=== PATIENT | male | born 1945 | race Caucasian/White ===

== ENCOUNTER 2024-04-21 10:33 | Outpatient (OUT) | payer MEDICARE, SELFPAY | END 2024-04-21 10:34 | disposition home or self-care (01) | LOC: PST 10:33 | PROVIDERS: PCP Internal Medicine; Visit Provider Surgery | DX: Z01.818 Encounter for other preprocedural examination (principal); Z86.0109 Personal history of other colon polyps; Z12.11 Encounter for screening for malignant neoplasm of colon ==

== ENCOUNTER 2024-04-29 08:35 | Day surgery (SDC) | payer MEDICARE, SELFPAY ==
--- NOTE | 2024-04-29 | OP_ITS ---
OPERATION DATE: 04/29/2024 PREOPERATIVE DIAGNOSIS: Personal history of colon polyps. POSTOPERATIVE DIAGNOSIS: Severe morin colonic diverticulosis as well as tortuous colon. PROCEDURE: Colonoscopy to cecum. SURGEON: Jasper Rodgers M.D. ANESTHESIA: Monitored anesthesia care. ESTIMATED BLOOD LOSS: Zero. PREP: Fair with some solid and liquid stool throughout the colon that was partially irrigated clear. INDICATIONS AND CONSENT: Patient is a 78-year-old male with a personal history of colon polyps. Last colonoscopy was in 2019 with the removal of a small descending colon tubular adenoma. Indications, risks, benefits, alternatives of proceeding with colonoscopy were explained extensively to the patient, including the risks of bleeding, colon perforation or anesthetic complications. All of his questions were answered. Informed consent was obtained. PROCEDURE: Patient brought to the operating room, placed in the left lateral decubitus position. Monitored anesthesia care was provided. Rectal exam was performed which showed no masses or blood. The scope was inserted into the anal canal. Under direct visualization was advanced. With the aid of abdominal compression, it was advanced. Actually, the scope had to be changed to a pediatric scope due to the tortuosity of the colon and severe diverticulosis. The scope was able to be advanced to the cecum. There was a large amount of liquid that was partially irrigated. So the majority of the cecal bulb was reviewed, but some was not available due to fluid. Upon withdrawal of the scope, mucosal surfaces were carefully examined. There were no mass lesions or polyps. There was severe diverticulosis throughout the entire colon, without inflammatory changes or scarring. The scope was retroflexed in the anal canal. There was no significant hemorrhoidal disease. The scope was then withdrawn. Patient tolerated procedure well, was sent to recovery room in good condition. patient will likely not require additional screening colonoscopy; however it could be done in 10 years if patient remains in good johan. CC: Pavan Dee M.D. [place]
--- OUTSIDE RECORDS SUMMARY | 2024-04-29 08:45 | XMS_ITS | CCD ---
Author Organization [facility] Providers Care Feed In Worker Name Role Phone PHYSICIAN, DEFAULT Unavailable Unavailable PHYSICIAN, DEFAULT Unavailable Unavailable KATHERIN STERLING Primary Care Physician MATSON ., DR PLUNKETT Admitting Unavailable MATSON ., DR PLUNKETT Attending Unavailable HIESTAND, DR KATHERIN Cobos Primary Care Unavailable MATSON ., DR PLUNKETT Consulting Unavailable SIXTO II, HARVEY Consulting Unavailable BARBIE ALONZO Consulting Unavailable MATSON ., DR PLUNKETT Attending Unavailable MATSON ., DR PLUNKETT Consulting Unavailable MATSON ., DR PLUNKETT Admitting Unavailable JEREMIAH AVILA Consulting Unavailable PRASANNA KIRK Consulting Unavailable MATSON ., DR PLUNKETT Attending Unavailable MATSON ., DR PLUNKETT Admitting Unavailable MATSON ., DR PLUNKETT Admitting Unavailable HIESTAND, DR KATHERIN Cobos Primary Care Unavailable MATSON ., DR PLUNKETT Attending Unavailable MATSON ., DR PLUNKETT Consulting Unavailable MATSON ., DR PLUNKETT Admitting Unavailable MATSON ., DR PLUNKETT Attending Unavailable HIESTAND, DR KATHERIN Cobos Primary Care Unavailable MATSON ., DR PLUNKETT Consulting Unavailable MATSON ., DR PLUNKETT Admitting Unavailable MATSON ., DR PLUNKETT Attending Unavailable HIESTMARIANNE, DR KATHERIN Cobos Primary Care Unavailable MATSON ., DR PLUNKETT Consulting Unavailable LENY KHAN Consulting Unavailable MATSON ., DR PLUNKETT Attending Unavailable MATSON ., DR PLUNKETT Consulting Unavailable MATSON ., DR PLUNKETT Admitting Unavailable NefBarbie bustillos Consulting Unavailable MATSON ., DR PLUNKETT Consulting Unavailable MATSON ., DR PLUNKETT Attending Unavailable HIESTMARIANNE, DR KATHERIN Cobos Primary Care Unavailable MATSON ., DR PLUNKETT Admitting Unavailable SHARP, JEREMIAH Consulting Unavailable SIXTO II, HARVEY Consulting Unavailable RUTH ANN LIZAMA Consulting Unavailable Dimitrios Matson MD Unavailable [phone] Katherin Sterling Unavailable [phone] Katherin Sterling Primary Care Provider [phone] Evelyne SILVERIO, Ismael Unavailable [place] BAR ASSISTANT.DEICER KIT ASSEMBLER, Gerda Unavailable Shaina RN, Amanda Unavailable [phone] Katherin Sterling Unavailable Shaina SCHNEIDER, Amanda Unavailable [phone] HALLIE, KATHERIN ZARCO Primary Care Unavailabl e ALMASSI, KANNAN Attending Unavailable ISAIAHASSI, KANNAN Referring Unavailable JOSE RAULESTMARIANNE, KATHERIN ZARCO Primary Care Unavailabl e Katherin Sterling MD Primary Care Provider Katherin Sterling Primary Care Provider [phone] KATHERIN STERLING Attending Unavailable JOSE RAULESTMARIANNE, KATHERIN Cobos Referring Unavailable HIESTMARIANNE, KATHERIN Cobos Primary Care Unavailable DONATO KRISHNAN Attending Unavailable KATHERIN STERLING Referring Unavailable JOSE RAULESTMARIANNE, KATHERIN Cobos Primary Care Unavailable JOSE RAULESTMARIANNE, KATHERIN Cobos Attending Unavailable JOSE RAULESTMARIANNE, KATHERIN Cobos Referring Unavailable HIESTMARIANNE, KATHERIN Cobos Primary Care Unavailable DONATO KRISHNAN Attending Unavailable JOSE RAULESTKATHERIN SU Referring Unavailable HIESTMARIANNE, KATHERIN Cobos Primary Care Unavailable HALLIE, KATHERIN Cobos Referring Unavailable HALLIE, KATHERIN Cobos Primary Care Unavailable HALLIE, KATHERIN Cobos Attending Unavailable HALLIE, KATHERIN Cobos Referring Unavailable HALLIE, KATHERIN Cobos Primary Care Unavailable Dimitrios Matson MD Unavailable Katherin Sterling MD Unavailable [phone] Hallie SILVERIO, Katherin Zarco Primary Care Provider KATHERIN STERLING Primary Care Unavailabl e HIESTAND, KATHERIN ZARCO Primary Care Unavailabl e HIESTAND, KATHERIN ZARCO Primary Care Unavailabl e ALMASSI, KANNAN Referring Unavailable ISAIAHASSI, KANNAN Attending Unavailable HIESTMARIANNE, KATHERIN ZARCO Primary Care Unavailabl e ALMASSI, KANNAN Attending Unavailable HIESTMARIANNE, KATHERIN ZARCO Primary Care Unavailabl e HIESTAND, KATHERIN ZARCO Primary Care Unavailabl e HIESTAND, KATHERIN ZARCO Primary Care Unavailabl e HIESTAND, KATHERIN ZARCO Primary Care Unavailabl e HIESTAND, KATHERIN ZARCO Primary Care Unavailabl e ALMASSI, KANNAN Attending Unavailable NILL, Noel R Attending Unavailable Medications Current Medications Medication Drug Class(es) Dates Sig (Normalized) Sig (Original) acetaminophen 325 mg / HYDROcodone bitartrate 5 mg oral tablet (1 source) Opioid Agonist Start: 04-24-2022 Melvin 325 mg-5 mg oral tablet 1 tab(s), Oral, q12hr, 10 tab(s), Refill(s) 0, [facility] #[id number], 182, cm, 03/28/22 12:11:00 EST, Height/Length Dosing, 85, kg, 03/28/22 12:11:00 EST, Weight Dosing Start Date: 04/24/22 Status: Ordered acetaminophen 325 mg / oxyCODONE hydrochloride 5 mg oral tablet (1 source) Opioid Agonist Start: 09-15-2023 End: 09-22-2023 take 1 tablet by mouth every six hours as needed for pain oxyCODONE-acetamin ophen (PERCOCET) 5-325 mg tablet Indications: Malignant neoplasm of overlapping sites of bladder (HCC) , Cancer associated pain Take 1 tablet by mouth every 6 hours as needed for pain for up to 7 days. 28 tablet 0 09/15/2023 09/22/2023 Active ALPRAZolam 0.5 mg oral tablet (20 sources) Benzodiazepine Start: 03-16-2024 take 1 tablet by mouth once daily in the morning ALPRAZolam (XANAX) 0.5 mg tablet Indications: Anxiety take 1 tablet by mouth every morning and then take 1 tablet every evening if needed for anxiety Strength: 0.5 mg 60 tablet 03/16/2024 Active Start: 01-11-2020 End: 03-14-2024 take 1 tablet by mouth once daily in the morning ALPRAZolam (XANAX) 0.5 mg tablet Indications: Anxiety take 1 tablet by mouth every morning and then take 1 tablet every evening if needed for anxiety Strength: 0.5 mg 60 tablet 0 02/19/2023 03/29/2023 Discontinued (Reorder) Comment on above: take 1 tablet by kiah th every morning then take 1 tablet every evening if needed for anxiety escitalopram 10 mg oral tablet (20 sources) Serotonin Reuptake Inhibitor Start: 3 End: 4 take 1 tablet by mouth once daily in the morning escitalopram (LEXAPRO) 10 mg tablet take 1 tablet by mouth every morning 90 tablet 1 03/14/2023 Active Start: 04-30-2022 take 1 tablet by kiah th once daily in the morning escitalopram oxalate (LEXAPRO) 10 mg tablet Take 10 mg by mouth every morning. 0 05/17/2022 Active Comment on above: Take 10 mg by mouth every morning. lidocaine hydrochloride 0.02 mg/mg topical gel (20 sources) Antiarrhythmic, Amide Local Anesthetic Start: 02-28-2024 End: 03-29-2024 lidocaine urojet 2 % 11 mL topical gel (GLYDO) Start: 11-15-2023 End: 11-15-2023 lidocaine urojet 2 % 11 mL t opical gel (GLYDO) Start: 09-12-2023 End: 09-12-2023 lidocaine urojet 2 % 11 mL t opical gel (GLYDO) Start: 09-12-2023 End: 09-12-2023 lidocaine urojet 2 % 11 mL t opical gel (GLYDO) Start: 09-05-2023 End: 09-05-2023 lidocaine urojet 2 % 11 mL t opical gel (GLYDO) Start: 09-05-2023 End: 09-05-2023 lidocaine urojet 2 % 11 mL t opical gel (GLYDO) Start: 08-29-2023 End: 08-29-2023 lidocaine urojet 2 % 11 mL t opical gel (GLYDO) Start: 08-29-2023 End: 08-29-2023 lidocaine urojet 2 % 11 mL t opical gel (GLYDO) Start: 08-02-2023 End: 08-02-2023 lidocaine urojet 2 % 11 mL t opical gel (GLYDO) Start: 05-28-2023 End: 05-28-2023 lidocaine urojet 2 % 11 mL t opical gel (GLYDO) Start: 05-21-2023 End: 05-21-2023 lidocaine (URO-JET) 2 % jell y in applicator 11 mL by other route. 0 05/21/2023 05/21/2023 Active Start: 05-21-2023 End: 05-21-2023 lidocaine urojet 2 % 11 mL t opical gel (GLYDO) Start: 05-14-2023 End: 05-14-2023 lidocaine urojet 2 % 11 mL t opical gel (GLYDO) Start: 03-23-2022 lidocaine Top 2% Gel w/Appl 30 mL 0.1 gm, 5 mL, Topical, As Directed, 30 mL, Refill(s) 1, Apply as needed to the end of penis for discomfort, [facility] #[id number], 182, cm, 03/12/22 10:22:00 EST, Height/Length Dosing, 85.2, kg, 03/12/22 10:22:00 EST, Weight Dosing Start Date: 03/23/22 Status: Ordered lisinopril 40 mg oral tablet (20 sources) Angiotensin Converting Enzyme Inhibitor Start: 07-02-2022 take 1 tablet by mouth once daily lisinopriL (PRINIVIL,ZESTRIL) 40 mg tablet Indications: Essential hypertension take 1 tablet by mouth once daily 90 tablet 1 01/02/2023 Active Start: 01-01-2019 lisinopril Ora l, Daily, Refills(s) 0 Start Date: 01/01/19 Status: Ordered Comment on above: Take 40 mg by mouth once daily. 24 hr mirabegron 50 mg extended release oral tablet (3 sources) beta3-Adrenergic Agonist Start: 04-30-2022 End: 07-29-2022 take 1 mg by mouth once daily Myrbetriq 50 mg oral tablet, extended release mg tab(s), Oral, Daily Start Date: 09/05/22 Status: Ordered Comment on above: Once tablet daily omeprazole 20 mg delayed release oral capsule (20 sources) Proton Pump Inhibitor Start: 06-04-2022 End: 05-21-2023 take 1 capsule by mouth once daily in the morning omeprazole (PriLOSEC) 20 mg capsule take 1 capsule by mouth every morning 90 capsule 3 05/21/2023 Active Start: 01-01-2019 omeprazole Ora l, Daily, Refills(s) 0 Start Date: 01/01/19 Status: Ordered Comment on above: Take 20 mg by mouth every morning. 24 hr oxybutynin chloride 5 mg extended release oral tablet (18 sources) Cholinergic Muscarinic Antagonist Start: 023 End: 024 take 1 tablet by mouth once daily oxybutynin XL (DITROPAN XL) 5 mg 24 hr tablet Take 1 tablet by mouth once daily. 30 tablet 3 05/21/2023 08/03/2023 Discontinued Comment on above: Take 1 tablet by kiah once daily. phenazopyridine hydrochloride 200 mg oral tablet (2 sources) Start: End: take 1 tablet by mouth every eight hours as needed phenazopyridine (PYRIDIUM) 200 mg tablet Take 1 tablet by mouth three times daily as needed for up to 3 days. 9 tablet 0 11/15/2022 11/18/2022 Active Comment on above: Take 1 tablet by kiah th three times daily as needed for up to 3 days. simvastatin 40 mg oral tablet (20 sources) HMG-CoA Reductase Inhibitor Start: End: take 1 tablet by mouth once daily in the morning simvastatin (ZOCOR) 40 mg tablet TAKE 1 TABLET BY MOUTH EVERY DAY IN THE MORNING 90 tablet 1 02/11/2024 Active Start: 01-01-2019 simvastatin Or al, Refills(s) 0 Start Date: 01/01/19 Status: Ordered Comment on above: Take 40 mg by mouth every morning. sulfamethoxazole 800 mg / trimethoprim 160 mg oral tablet (2 sources) Dihydrofolate Reductase Inhibitor Antibacterial, Sulfonamide Antimicrobial Start: 05-14-19 End: 05-21-19 Bactrim D.S. 800 mg-160 mg Tab 1 tab(s), Oral, BID for 7 day(s), 14 tab(s), Refill(s) 0, [facility] #[id number], 182, cm, 05/14/22 11:49:00 EST, Height/Length Dosing, 84, kg, 05/14/22 11:49:00 EST, Weight Dosing Start Date: 05/14/22 Stop Date: 05/21/22 Status: Ordered traMADol hydrochloride 50 mg oral tablet (4 sources) Opioid Agonist Start: 04-12-19 End: 04-17-19 take 1 tablet by mouth every six hours as needed for pain traMADoL (ULTRAM) 50 mg tablet Indications: Inflamed sebaceous cyst Take 1 tablet (50 mg total) by mouth every 6 (six) hours as needed for pain for up to 5 days. 20 tablet 0 04/12/2023 04/17/2023 Active Urinary Bag (URINARY LEG BAG) kit (8 sources) Start: 12-13-19 End: 08-03-19 Urinary Bag (URINARY LEG BAG) kit Indications: Malignant neoplasm of overlapping sites of bladder (HCC) 5 Each as needed. 5 Kit 1 12/12/2022 08/03/2023 Discontinued Start: 12-12-2022 Urinary Bag (U RINARY LEG BAG) kit Indications: Malignant neoplasm of overlapping sites of bladder (HCC) 5 Each as needed. 5 Kit 1 12/12/2022 Active Comment on above: 5 Each as needed. Completed/Discontinued Medications Medication Drug Class(es) Dates Sig (Normalized) Sig (Original) bcg 50 mg in NaCl 0.9% 50 mL (14 sources) Start: 09-12-2023 End: 09-12-2023 bcg 50 mg in NaCl 0.9% 50 mL Start: 09-05-2023 End: 09-05-2023 bcg 50 mg in NaCl 0.9% 50 mL Start: 08-29-2023 End: 08-29-2023 bcg 50 mg in NaCl 0.9% 50 mL Start: 05-28-2023 End: 05-28-2023 bcg 50 mg in NaCl 0.9% 50 mL Start: 05-21-2023 End: 05-21-2023 bcg 50 mg in NaCl 0.9% 50 mL Start: 05-14-2023 End: 05-14-2023 bcg 50 mg in NaCl 0.9% 50 mL Start: 12-19-2022 End: 12-19-2022 bcg 50 mg in NaCl 0.9% 50 mL Start: 12-05-2022 End: 12-05-2022 bcg 50 mg in NaCl 0.9% 50 mL Start: 11-28-2022 End: 11-28-2022 bcg 50 mg in NaCl 0.9% 50 mL Start: 11-21-2022 End: 11-21-2022 bcg 50 mg in NaCl 0.9% 50 mL Start: 11-14-2022 End: 11-14-2022 bcg 50 mg in NaCl 0.9% 50 mL cephalexin 500 mg oral capsule (19 sources) Cephalosporin Antibacterial Start: 08-30-2022 End: 11-13-2022 take 1 capsule by mouth every twenty-four hours cephALEXin (KEFLEX) 500 mg capsule take 1 capsule by mouth EVERY 24 HOURS 0 08/30/2022 11/13/2022 Discontinued (Discontinued by another Health Care Provider) Start: 04-24-2022 take 1 capsule by [facility] twice daily Keflex 500 mg Cap 500 mg = 1 cap(s), Oral, BID, Start the day prior to procedure, # 14 cap(s), Refills(s) 0, Pharmacy: [facility] #[id number], 182, cm, 03/28/22 12:11:00 EST, Height/Length Dosing, 85, kg, 03/28/22 12:11:00 EST, Weight Dosing Start Date: 04/24/22 Status: Ordered Comment on above: take 1 capsule by [facility] EVERY 24 HOURS ciprofloxacin 500 mg oral tablet (2 sources) Quinolone Antimicrobial Start: 03-12-20 Cipro 500 mg Tab 500 mg = 1 tab(s), Oral, As Directed, Patient to take 1 tab the day before procedure and the 2nd tab the day of procedure once completed, # 2 tab(s), Refills(s) 0, Pharmacy: [id number], 182, cm, 03/12/22 10:22:00 EST, Height/Length Dosin... Start Date: 03/12/22 Status: Ordered 2 ml gentamicin 40 mg/ml injection (2 sources) Start: 10-11-19 End: 10-11-19 gentamicin 40 mg/mL 120 mg injection meclizine hydrochloride 25 mg oral tablet (3 sources) Antiemetic Start: 05-02-19 End: 05-21-19 24 take 1 tablet by mouth every six hours as needed for dizziness meclizine (ANTIVERT) 25 mg tablet Take 1 tablet (25 mg total) by mouth every 6 (six) hours as needed for dizziness. 20 tablet 0 05/02/2023 05/21/2023 Discontinued multivit-minerals/fol ic acid (MEN'S MULTIVITAMIN GUMMIES ORAL) (18 sources) End: 11-14-19 23 take 2 tablets by mouth once daily multivit-minerals/f olic acid (MEN'S MULTIVITAMIN GUMMIES ORAL) Take 2 tablets by mouth once daily. 0 11/13/2022 Discontinued take 2 tablets by mouth once nicolas ly multivit-minerals/folic acid (MEN'S MULTIVITAMIN GUMMIES ORAL) Take 2 tablets by mouth once daily. 0 Active Comment on above: Take 2 tablets by mo uth once daily. ondansetron 4 mg disintegrating oral tablet (3 sources) Serotonin-3 Receptor Antagonist Start: 05-02-19 End: 05-21-19 take 1 tablet by mouth every eight hours as needed for nausea and vomiting ondansetron ODT (ZOFRAN ODT) 4 mg disintegrating tablet Dissolve 1 tablet (4 mg total) on tongue every 8 (eight) hours as needed for nausea or vomiting. 10 tablet 0 05/02/2023 05/21/2023 Discontinued solifenacin succinate 10 mg oral tablet (19 sources) Cholinergic Muscarinic Antagonist Start: 08-31-19 End: 11-14-19 take 1 tablet by mouth once daily solifenacin 10 mg tablet Take 10 mg by mouth once daily. 0 08/30/2022 11/13/2022 Discontinued (Discontinued by another Health Care Provider) Comment on above: Take 10 mg by mouth once daily. 24 hr trospium chloride 60 mg extended release oral capsule (2 sources) Cholinergic Muscarinic Antagonist Start: 11-16-19 End: 12-16-19 take 1 capsule by mouth once daily Trospium (SANCTURA SR) 60 mg cp24 Take 1 capsule by mouth once daily. 30 capsule 0 11/15/2022 11/16/2022 Discontinued Comment on above: Take 1 capsule by mo uth once daily. Problems Active Problems Problem Classification Problem Date Documented Date Episodic/Chronic Anxiety disorders (20 sources) Anxiety; Translations: [Anxiety disorder, unspecified] Onset: 10-11-2020 10-11-2020 Chronic Cancer of bladder (20 sources) Malignant tumor of urinary bladder; Translations: [Malignant neoplasm of bladder, unspecified] Onset: 03-28-2022 Chronic Cancer of prostate (17 sources) Personal history of malignant neoplasm of prostate; Translations: [History of malignant neoplasm of prostate] Onset: 03-12-2022 Episodic Cancer; other and unspecified primary (1 source) H/O: malignant neoplasm 08-28-2022 Episodic Disorders of lipid metabolism (20 sources) Hyperlipidemia; Translations: [Hyperlipidemia, unspecified] Onset: 04-12-2020 01-01-2019 Chronic Diverticulosis and diverticulitis (15 sources) Diverticulosis of large intestine; Translations: [Diverticulosis of large intestine without perforation or abscess without bleeding] Onset: 04-09-2019 04-09-2019 Chronic Esophageal disorders (15 sources) Gastroesophageal reflux disease; Translations: [Gastro-esophageal reflux disease without esophagitis] 10-11-2020 Chronic Essential hypertension (20 sources) Hypertensive disorder; Translations: [Essential (primary) hypertension] Onset: 04-12-2020 01-01-2019 Chronic Genitourinary symptoms and ill-defined conditions (2 sources) Urinary catheter in situ; Translations: [Encounter for fitting and adjustment of urinary device] Onset: 12-11-2022 12-11-2022 Chronic Genitourinary symptoms and ill-defined conditions (19 sources) Blood in urine; Translations: [Gross hematuria] Onset: 03-12-2022 Episodic Headache; including migraine (10 sources) Migraine; Translations: [Migraine, unspecified, not intractable, without status migrainosus] Onset: 03-25-2022 01-01-2019 Chronic Headache; including migraine (1 source) Headache Onset: 08-22-2023 Episodic Hyperplasia of prostate (2 sources) Benign prostatic hypertrophy without outflow obstruction 01-11-2020 Chronic Inflammatory conditions of male genital organs (9 sources) Epididymitis 01-01-2019 Episodic Miscellaneous mental health disorders (1 source) Psychophysiologic insomnia; Translations: [Psychophysiologic insomnia] 03-12-2024 Chronic Other aftercare (1 source) Other intermediate teacher (current) drug therapy; Translations: [OTH [facility] CURRENT DRUG THERAPY] Onset: 04-27-2022 Episodic Other aftercare (1 source) senior care (current) use of anticoagulants; Translations: [[facility] CURRNT USE ANTICOAGULANTS] Onset: 03-29-2022 Episodic Other diseases of kidney and ureters (1 source) Crossing vessel and stricture of ureter without hydronephrosis; Translations: [CROSSING VES STRICT URETER W/O HN] Onset: 04-27-2022 Episodic Other male genital disorders (9 sources) Impotence 07-10-2019 Chronic Other nervous system disorders (1 source) Pain due to neoplastic disease; Translations: [Neoplasm related pain (acute) (chronic)] 09-15-2023 Chronic Other nutritional; endocrine; and metabolic disorders (8 sources) Overweight in adulthood with body mass index of 25 or more but less than 30; Translations: [Body mass index (BMI) 25.0-25.9, adult] Onset: 03-28-2022 Episodic Other nutritional; endocrine; and metabolic disorders (1 source) Body mass index 25-29 - overweight; Translations: [Overweight] 03-12-2024 Episodic Other screening for suspected conditions (not mental disorders or infectious disease) (4 sources) Patient encounter status; Translations: [Encounter for screening for other disorder] Episodic Other skin disorders (2 sources) Sebaceous cyst of skin; Translations: [Sebaceous cyst] 04-12-2023 Episodic Other skin disorders (1 source) Epidermoid cyst; Translations: [Epidermal cyst] 05-21-2023 Episodic Residual codes; unclassified (9 sources) Sleep apnea 01-01-2019 Chronic Residual codes; unclassified (1 source) Sleep apnea, unspecified; Translations: [SLEEP APNEA UNSPECIFIED] Onset: 04-27-2022 Chronic Residual codes; unclassified (17 sources) Obstructive sleep apnea syndrome; Translations: [Obstructive sleep apnea (adult) (pediatric)] Onset: 12-06-2016 12-06-2016 Chronic Residual codes; unclassified (1 source) Obstructive sleep apnea (adult) (pediatric); Translations: [Obstructive sleep apnea (adult) (pediatric)] Onset: 12-06-2016 Chronic Residual codes; unclassified (1 source) Acquired absence of other specified parts of digestive tract; Translations: [ACQ ABSENCE OTH PART DIGESTV TRACT] Onset: 05-31-2022 Episodic Residual codes; unclassified (1 source) Acquired absence of other genital organ(s); Translations: [ACQUIRED ABSENCE OTH GENITAL ORGANS] Onset: 05-31-2022 Episodic Screening and history of mental health and substance abuse codes (1 source) Personal history of nicotine dependence; Translations: [PERSONAL HISTORY OF NICOTINE DEPEND] Onset: 05-31-2022 Episodic Substance-related disorders (10 sources) Smoker; Translations: [Nicotine dependence, cigarettes, uncomplicated] Onset: 04-27-2022 07-10-2019 Chronic Comment on above: Added secondary to d ocumentation in Social History. Unclassified (1 source) CONTACT W/AND (SUSP) EXPOS COVID-19; Translations: [CONTACT W/AND (SUSP) EXPOS COVID-19] Onset: 01-11-2023 Unclassified (1 source) Annual Exam Onset: 08-22-2023 Unclassified (1 source) Cyst Onset: 04-16-2023 Past or Other Problems Problem Classification Problem Date Documented Da te Episodic/Chronic Abdominal hernia (15 sources) Ventral incisional hernia; Translations: [Incisional hernia without obstruction or gangrene] Onset: 03-12-2019 03-12-2019 Episodic Abdominal pain (2 sources) Flank pain; Translations: [Unspecified abdominal pain] Onset: 11-15-2023 11-15-2023 Episodic Cancer of prostate (17 sources) Malignant tumor of prostate; Translations: [Malignant neoplasm of prostate] Resolved: 10-12-2020 Chronic Conditions associated with dizziness or vertigo (4 sources) Vertigo; Translations: [Dizziness and giddiness] Onset: 05-02-2023 05-02-2023 Episodic Gastrointestinal hemorrhage (15 sources) Rectal hemorrhage; Translations: [Hemorrhage of anus and rectum] Onset: 03-12-2019 03-12-2019 Episodic Mood disorders (15 sources) Mood disorders Onset: 01-15-2023 Resolved: 08-16-2023 01-15-2023 Neoplasms of unspecified nature or uncertain behavior (1 source) Neoplasm of unspecified behavior of bladder; Translations: [NEOPLASM UNS BEHAVIOR OF BLADDER] Onset: 03-25-2022 Episodic Nonspecific chest pain (15 sources) Chest pain; Translations: [Chest pain, unspecified] Onset: 10-14-2016 10-14-2016 Episodic Other and unspecified benign neoplasm (15 sources) Hyperplastic polyp of intestine; Translations: [Polyp of colon] Onset: 04-09-2019 04-09-2019 Episodic Other and unspecified benign neoplasm (15 sources) Adenomatous polyp of colon ; Translations: [Benign neoplasm of descending colon] Onset: 04-09-2019 04-09-2019 Episodic Pancreatic disorders (not diabetes) (20 sources) Pancreatitis; Translations: [Acute pancreatitis without necrosis or infection, unspecified] Onset: 10-06-2017 01-01-2019 Episodic Skin and subcutaneous tissue infections (2 sources) Abscess of back, except buttock; Translations: [Cutaneous abscess of back [any part, except buttock]] Onset: 04-16-2023 04-16-2023 Episodic Unclassified (15 sources) Onset: 06-04-2019 06-04-2019 Urinary tract infections (15 sources) Urinary tract infectious disease; Translations: [Urinary tract infection, site not specified] Onset: 01-02-2023 01-02-2023 Episodic Results Test Name Value Interpretation Reference Range Facility [facility] 02-28-2024 CNOV Office Visit (UROSMN ) JOYCENOEL HUMPHRIES ([id number]) 1945 M Date Time Provider Department 02/28/24 2:45 PM KANNAN JARVIS UROVinnie During your visit today, we recorded the following information about you: Leny Lance RN 02/28/2024 3:11 PM Signed Patient ID with (2) Identifiers, Verified by: Leny Lance RN Actual procedure/procedure scheduled: Yes Performing provider/scheduled provider: Yes Patient was roomed in: Q9- 08 Beauty Artist offered:Patient declines Patient arrived in the room at: 1445 Patient ready for procedure: 1504 The procedure started at ( Time Only): 1508 The procedure ended at: 1509 Was the procedure delayed: Yes: Patient late and Provider late: Provider with other patient on Q9 ProNox Utilized: No The patient left the procedure room at: 1520 Leny Lnace RN PRE PROCEDURE ASSESSMENT- Cysto Latex Allergy: No Allergies reviewed and updated. Yes Pre-Procedure Vital Signs: BP: 169/88 Heart valve replacement: No Joint replacement: No Back Office UA otained: yes PROCEDURE PREP-Cysto Patient Prep: Betadine Placement of Sterile Drape: COMPLETED Anesthetic Given:10 cc 2% Lidocaine jelly Leny Lance RN POST PROCEDURE NURSE ASSESSMENT Present along with physician during procedure exam. Leny Lance RN Current pain intensity is 0 on a 0-10 pain scale. Leny Lance RN AMBULATORY PATIENT EDUCATION THE FOLLOWING WAS EVALUATED Motivation To Learn: Interested Family/Significant Other Support: High - Very involved in pt care Cognitive Ability: Alert/Oriented Method of Instruction: Individual instruction Written instruction/Handouts Verbal instruction The Following Influencing Factors Were Barriers To This Education Session: None The Following Physical Limitations Were Barriers To This Education Session: None Instruction Provided To: Patient and family member Logistics Specialist Present: not applicable Discipline: Nursing Learning Topic: SURVIVAL SKILLS: Complication Prevention Symptom Management Patient Evaluation: Verbalizes understanding: Yes Supplemental Material Given: Written Material Instructed By Leny Lance RN In Department Urology. Kannan Jarvis MD 02/28/2024 3:35 PM Signed [place] [id number] AMBULATORY PROCEDURE NOTE NAME: Noel Loera AGE: [age] year old CLINIC #: [id number] DATE: February 28, 2024 SURGEON: Kannan Jarvis MD PROCEDURE: Cystoscopy ANESTHESIA: Lidocaine gel per urethra DIAGNOSIS: Bladder cancer INDICATION: Surveillance FINDINGS: Tumor present: No Urethra: Normal Prostate: Moderate lateral lobes Verumontanum: Open Urine cytology: Voided PROCEDURE: After informed consent was obtained, the patient was taken to the endoscopy suite. A time out was performed where the patient and the procedure were identified in the presence of the Nursing and Surgical Staff. Patient was placed in supine position, prepped and draped in the standard sterile fashion. Lidocaine gel was placed per urethra for local anesthesia. Cystoscopy was then performed using a 17 F flexible cystoscope. Sterile technique was maintained throughout. Please refer to above for specific findings during this part of the procedure. After carefully and atraumatically inspecting the urethra, prostate, and bladder, the bladder was emptied and the cystoscope was removed. The patient tolerated the procedure well and there were no complications. 02/28/24 Cysto: RANDY; cytology: pending 11/15/23 Cysto: RANDY; cytology: atypical 09/12/23 BCG x 3 completed 08/02/23 Cysto: RANDY; cytology: negative 05/28/23 BCG x 3 completed 05/07/23 Cysto: RANDY; cytology: pending 01/29/23 Cysto: RANDY; cytology: negative 12/19/22 BCG x 6 complete I took over care here 10/10/22 Stent removal - over 5 small tumors which were fulgurated 08/30/2022 TURBT - cTaHG urothelial carcinoma, MP present and uninvolved (OS pathology). Stent placed. 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 Unable to place stents. 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 Surveillance cystoscopy in 3 months. By signing my name below, I, Satish Nilton, attest that this documentation (more content not included)... Normal [facility] CYTOLOGY NON-GYNon CASE REPORT Normal [facility] Comment on above: Order Comment: Speci men Type: URINE SPECIMENOrdering Facility: [facility] Address: [address] [place] [address] Result Comment: [facility] Cytology Report Case: [id number] Authorizing Provider: Kannan Jarvis MD Collected: 02/28/2024 03:22 PM Ordering Location: Urology Received: 02/28/2024 06:23 PM Pathologist: Nichole Whitney MD Specimen: Urine, Midstream Performed By: #### C YTONON ####[facility] LABCLIA [id number] [place] [address] [place] CLINICAL HISTORY hx bladder cancer Normal [facility] Comment on above: Order Comment: Speci men Type: URINE SPECIMENOrdering Facility: [facility] Address: [address] [place] [address] Performed By: #### C YTONON ####[facility] LABCLIA [id number] [address] [place] FINAL DIAGNOSIS Normal [facility] Comment on above: Order Comment: Speci men Type: URINE SPECIMENOrdering Facility: [facility] Address: [address] [place] [address] Result Comment: A - Urine, Midstream, Urine Negative for high-grade urothelial carcinoma. Performed By: #### C YTONON ####[facility] LABCLIA [id number] [place] [address] [place] FINAL PERFORMING LAB Normal [facility] Comment on above: Order Comment: Speci men Type: URINE SPECIMENOrdering Facility: [facility] Address: [address] [place] [address] Result Comment: Tech nical component, exhibit designer screening performed at [facility], [address] [place] [address] CLIA# [id number] Diagnostic interpretation performed at [facility], [address] [place] [address] CLIA# [id number] Power Washer: Nelson Giraldo M.D. Performed By: #### C YTONON ####[facility] LABCLIA [id number] [place] [address] [place] GROSS DESCRIPTION Normal [facility] Comment on above: Order Comment: Speci men Type: URINE SPECIMENOrdering Facility: [facility] Address: [address] [place] [address] Result Comment: A. U rine, Midstream 50 cc clear mccarthy yellow fluid . ThinPrep prepared. Performed By: #### C YTONON ####[facility] LABCLIA [id number] [place] [address] [place] UA DIP, URINE (POC)on 2023 BILIRUBIN UA (POCT) Negative Negative [facility] CLARITY UA (POCT) Clear [facility] COLOR UA (POCT) Yellow [facility] GLUCOSE UA (POCT) Negative Negative mg/dL [facility] Hemoglobin Ql (U) Negative Negative [facility] KETONE UA (POCT) Negative Negative mg/dL [facility] LEUKOCYTES UA (POCT) Negative Negative [facility] NITRITE UA (POCT) Negative Negative [facility] PH UA (POCT) 7.0 4.5 - 8.0 [facility] Protein Ql (U) Negative Negative mg/dL [facility] SPECIFIC GRAVITY UA (POCT) 1.015 1.005 - 1.030 [facility] UROBILINOGEN UA (POCT) 0.2 Normal E.U./dL [facility] Location:[facility], [address] [place] [address], [address] [place] [address] POINT OF CARE [facility] CNOVon 11-15-2023 CNOV Office Visit (UROSMN ) NOEL LOERA ([id number]) 1945 M Date Time Provider Department 11/15/23 1:15 PM KANNAN JARVIS UROJULIETH During your visit today, we recorded the following information about you: Jaron Taylor RN 11/15/2023 2:03 PM Signed Actual procedure/procedure scheduled: Yes Performing provider/scheduled provider: Yes Patient was roomed in: [address] offered:Patient declines Patient arrived in the room at: 1303 Patient ready for procedure: 1315 The procedure started at ( Time Only): 1353 The procedure ended at: 1355 Was the procedure delayed: Yes: Provider late: Provider off unit The patient left the procedure room at: 1405 Jaron Taylor RN PRE PROCEDURE ASSESSMENT- Cysto Procedure Indication: Cystoscopy Latex Allergy: No Allergies reviewed and updated. Yes Heart valve replacement: No Joint replacement: No Back Office UA otained: yes PROCEDURE PREP-Cysto Patient ID with two(2)identifiers verified by: Jaron Taylor RN Pre-Procedure Antibiotics: None taken at home nor prior to procedure Patient Prep: Betadine Scrub to perineum and placement of Sterile Drape. COMPLETED Anesthetic Given:10 cc 2% Lidocaine jelly Jaron Taylor RN UNIVERSAL PROTOCOL / SAFETY CHECKLIST Procedure to be performed: Cystoscopy Sign in Communication: Completed Time Out: Team Confirms the Correct Patient, Correct Procedure, Correct Site and Site Marking, Correct Position (if applicable). Sign Out Discussion: Completed Jaron Taylor RN POST PROCEDURE NURSE ASSESSMENT Present along with physician during procedure exam. Jaron Taylor RN Instruction sheet given and reviewed and patient verbalizes understanding: yes Post Procedure Antibiotic: As Prescribed Current pain intensity is 0 on a 0-10 pain scale. Jaron Taylor RN AMBULATORY PATIENT EDUCATION THE FOLLOWING WAS EVALUATED Motivation To Learn: Interested Family/Significant Other Support: High - Very involved in pt care Cognitive Ability: Alert/Oriented Method of Instruction: Individual instruction Written instruction/Handouts Verbal instruction The Following Influencing Factors Were Barriers To This Education Session: None The Following Physical Limitations Were Barriers To This Education Session: None Instruction Provided To: Patient Logistics Specialist Present: not applicable Discipline: Nursing Learning Topic: SURVIVAL SKILLS: Complication Prevention Symptom Management Patient Evaluation: Verbalizes understanding: Yes Supplemental Material Given: Written Material Instructed By Jaron Taylor RN In Department Urology . Jaron Taylor RN 11/15/2023 1:53 PM Signed UNIVERSAL PROTOCOL / SAFETY CHECKLIST Procedure to be Performed: cystoscopy Sign In: A Moment of CARE was completed. Personnel directly involved with the procedure wore the appropriate PPE (Personal Protective Equipment). Patient/Surrogate Stated/Verified: PATIENT VERIFIED(optional for EMERGENT procedures): Patient name, Date of , Relevant allergies, and The intended procedure Time Out Communication: Intended patient and procedure match the source documents. Consent documented and matches the intended procedure. Relevant labs, photos, and/or imaging studies have been reviewed. No correct side/site applicable for marking and visibility. Medications required for procedure verified. Fire risk assessed and interventions discussed. No implant(s) inserted. Sign Out: SIGN OUT (optional for EMERGENT procedures): All specimen containers correctly labeled. All instruments, equipment, possible retained foreign bodies accounted for. Post-procedure follow-up management communicated and Plan of Care Visit completed when applicable. WYATT Rojas Nima, MD 11/15/2023 4:34 PM Signed [place] [phone] AMBULATORY PROCEDURE NOTE NAME: Noel Loera AGE: [age] year old CLINIC #: [id number] DATE: November 15, 2023 SURGEON: Kannan Jarvis MD PROCEDURE: Cystoscopy ANESTHESIA: Lidocaine gel per urethra DIAGNOSIS: Bladder cancer INDICATION: Surveillance FINDINGS: Tumor present: No Urethra: Normal Prostate: Surgically absent Urine cytology: Voided PROCEDURE: After informed consent was obtained, the patient was taken to the endoscopy suite. A time out was performed where the patient and the procedure were identified in the presence of the Nursing and Surgical Staff. Patient was placed in supine position, prepped and draped in the standard sterile fashion. Lidocaine gel was placed per urethra for local anesthesia. Cystoscopy was then performed using a 17 F flexible cystoscope. Sterile technique was maintained throughout. Please refer to above for specific findings during this part of the procedure. After carefully and atraumatically inspecting the urethra, prostate, and bladder, the blad (more content not included)... Normal [facility] CYTOLOGY NON-GYNon CASE REPORT Normal [facility] Comment on above: Order Comment: Speci men Type: URINE SPECIMENOrdering Facility: [facility] Address: [address] [place] [address] Result Comment: [facility] Cytology Report Case: [id number] Authorizing Provider: Kannan Jarvis MD Collected: 11/15/2023 01:51 PM Ordering Location: Urology Received: 11/15/2023 03:14 PM Pathologist: oLra Castanon MD Specimen: Urine, Midstream Performed By: #### C YTONON ####[facility] LABCLIA [id number] [place] [address] [place] CLINICAL HISTORY hx bladder ca Normal [facility] Comment on above: Order Comment: Speci men Type: URINE SPECIMENOrdering Facility: [facility] Address: [address] [place] [address] Performed By: #### C YTONON ####[facility] LABCLIA [id number] [place] [address] [place] FINAL DIAGNOSIS Normal [facility] Comment on above: Order Comment: Speci men Type: URINE SPECIMENOrdering Facility: [facility] Address: [address] [place] [address] Result Comment: A - Urine, Midstream: Atypical urothelial cells. Performed By: #### C YTONON ####[facility] LABCLIA [id number] [place] [address] [place] FINAL PERFORMING LAB Normal [facility] Comment on above: Order Comment: Speci men Type: URINE SPECIMENOrdering Facility: [facility] Address: [address] [place] [address] Result Comment: Tech nical component, exhibit designer screening performed at [facility], [address] [place] [address] CLIA# [id number] Diagnostic interpretation performed at [facility], [address] [place] [address] CLIA# [id number] Power Washer: Nelson Giraldo M.D. Performed By: #### C YTONON ####[facility] LABCLIA [id number] [place] [address] [place] GROSS DESCRIPTION Normal [facility] Comment on above: Order Comment: Speci men Type: URINE SPECIMENOrdering Facility: [facility] Address: [address] [place] [address] Result Comment: A. U rine, Midstream 50 cc clear yellow fluid . ThinPrep prepared. Performed By: #### C YTONON ####[facility] LABCLIA [id number] [place] [address] [place] UA DIP, URINE (POC)on 2023 BILIRUBIN UA (POCT) Negative Negative [facility] CLARITY UA (POCT) Clear [facility] COLOR UA (POCT) Yellow [facility] GLUCOSE UA (POCT) Negative Negative mg/dL [facility] Hemoglobin Ql (U) Negative Negative [facility] KETONE UA (POCT) Negative Negative mg/dL [facility] LEUKOCYTES UA (POCT) Negative [facility] NITRITE UA (POCT) Negative Negative [facility] PH UA (POCT) 7.0 4.5 - 8.0 [facility] Protein Ql (U) Negative Negative mg/dL [facility] SPECIFIC GRAVITY UA (POCT) 1.020 1.005 - 1.030 [facility] UROBILINOGEN UA (POCT) 1.0 Normal E.U./dL [facility] Location:[facility], [address] [place] [address], [address] [place] [address] POINT OF CARE [facility] COMPREHENSIVE METABOLIC PANE Ru 08-23-2023 Albumin [Mass/Vol] 4.8 g/dL Normal 3.2-5.3 [facility] Comment on above: Performed By: #### Chet V[place]AN[place], 18181-6, 2857-1 #### [facility] ([id number]) [address], [address] [place] [address] ALP [Catalytic activity/Vol] 99 U/L Normal 39-[address] [facility] Comment on above: Performed By: #### Chet [place], 36609-5, 2857-1 #### [facility] ([id number]) [address], [address] [place] [address] ALT [Catalytic activity/Vol] 22 U/L Normal 0-[address] [facility] Comment on above: Performed By: #### Chet [place], 51981-4, 2857-1 #### [facility] ([id number]) [address], [address] [place] [address] Anion gap [Moles/Vol] 9 mmol/L Normal 5-[address] [facility] Comment on above: Performed By: #### Chet [place], 49310-7, 2857-1 #### [facility] ([id number]) [address], [address] [place] [address] AST [Catalytic activity/Vol] 25 U/L Normal 0-[address] [facility] Comment on above: Performed By: #### Chet [place], 57605-2, 2856-1 #### [facility] ([id number]) [address] [address] [place] [address] Bilirubin [Mass/Vol] 1.1 mg/dL Normal 0.3-1.2 [facility] Comment on above: Performed By: #### Chet [place], 58484-7, 285-1 #### [facility] ([id number]) [address], [address] [place] [address] Calcium [Mass/Vol] 9.9 mg/dL Normal 8.5-10.5 [facility] Comment on above: Performed By: #### Chet [place], 22118-9, 285-1 #### [facility] ([id number]) [address], [address] [place] [address] Chloride [Moles/Vol] 103 mmol/L Normal 98-109 [facility] Comment on above: Performed By: #### Chet [place], 87624-3, 2856-1 #### [facility] ([id number]) [address] [address] [place] [address] CO2 [Moles/Vol] 29 mmol/L Normal 22-[address] [facility] Comment on above: Performed By: #### Chet V[place], 45895-7, 285-1 #### [facility] ([id number]) [address], [address] [place] [address] Creatinine [Mass/Vol] 1.24 mg/dL Normal 0.60-1.[address] [facility] Comment on above: Result Comment: METH OD TRACEABLE TO IDMS STANDARD Performed By: #### Chet [place], 19631-9, 2857-1 #### [facility] ([id number]) [address], [address] [place] [address] GFR/1.73 sq M.predicted among non-blacks MDRD (S/P/Bld) [Vol rate/Area] 61 mL/min/{1.73_m2} Normal >[address] [facility] Comment on above: Result Comment: Reported eGFR is based on the CKD-EPI 2020 equation that does not use a race coefficient. Performed By: #### C KAY, 95349-1, 2857-1 #### [facility] ([id number]) [address], [address] [place] [address] Glucose [Mass/Vol] 82 mg/dL Normal 65-99 [facility] Comment on above: Performed By: #### Chet VILLANUE[place], 22848-5, 285-1 #### [facility] ([id number]) [address], [address] [place] [address] Potassium [Moles/Vol] 4.5 mmol/L Normal 3.5-5.[address] [facility] Comment on above: Performed By: #### Chet VILLAN[place], 06517-4, 2856-1 #### [facility] ([id number]) [address], [address] [place] [address] Protein [Mass/Vol] 7.9 g/dL Normal 6.0-8.0 [facility] Comment on above: Performed By: #### Chet VILLAN[place], 43666-1, 2857-1 #### [facility] ([id number]) [address], [address] [place] [address] Sodium [Moles/Vol] 141 mmol/L Normal 134-146 [facility] Comment on above: Performed By: #### Chet VILLAN[place], 27102-9, 2857-1 #### [facility] ([id number]) [address], [address] [place] [address] Urea nitrogen [Mass/Vol] 34 mg/dL High 5-[address] [facility] Comment on above: Performed By: #### Chet VILLAN[place], 34552-7, 2857-1 #### [facility] ([id number]) [address], [address] [place] [address] Lipid 1996 panelon 4 Cholesterol [Mass/Vol] 194 mg/dL Normal 150-[address] [facility] Comment on above: Performed By: ###[place], [address]-6, 2857-1 #### [facility] ([id number]) [address], [address] [place] [address] Cholesterol in HDL [Mass/Vol] 44 mg/dL Normal >[address] [facility] Comment on above: Result Comment: HDL <40 mg/dL - High Risk HDL > or = 40mg/dL- Desirable HDL >60 mg/dL - Negative Risk Performed By: ###[place], [address]-3, 2857-1 #### [facility] ([id number]) [address], [address] [place] [address] Cholesterol in LDL [Mass/Vol] 115 mg/dL Normal <[address] [facility] Comment on above: Result Comment: LDL <100 mg/dL - Desirable LDL >160 mg/dL - High Risk Performed By: ###[place], [address]-3, 4757-1 #### [facility] ([id number]) [address], [address] [place] [address] Cholesterol in VLDL [Mass/Vol] 35 mg/dL High 0-[address] [facility] Comment on above: Performed By: ###[place], [address]-8, 2857-1 #### [facility] ([id number]) [address], [address] [place] [address] CHOLESTEROL:HDL 4.4 Normal 1.0-5.[address] [facility] Comment on above: Performed By: #### C KAY, 69774-6, 2857-1 #### [facility] ([id number]) [address] [place] [address], [facility] [address] [place] [address] Triglyceride [Mass/Vol] 173 mg/dL High 27-[address] [facility] Comment on above: Performed By: #### C KAY, 66181-7, 2857-1 #### [facility] ([id number]) [address] [place] [address], [address] [address] Prostate specific Ag [Mass/V ol]on 08-23-2023 PROSTATIC SPEC ANT <0.01 Normal 0.00-4.00 [facility] Comment on above: Result Comment: The method used for this test is Yulex DXI chemiluminescent immunoassay. Values obtained by different assay methods cannot be used interchangeably. Performed By: #### C KAY, 25953-7, 2857-1 #### [facility] ([id number]) [address] [place] [address], [address] [address] CNOVon 08-02-2023 CNOV Office Visit (UROSMN ) NOEL LOERA ([id number]) 1945 M Date Time Provider Department 08/02/23 1:30 PM KANNAN JARVIS UROSMN During your visit today, we recorded the following information about you: Natalia Roque, RN 08/02/2023 1:59 PM Signed Actual procedure/procedure scheduled: Yes Performing provider/scheduled provider: Yes Patient was roomed in: Q9- 06 Beauty Artist offered:Patient declines Patient arrived in the room at: 1320 Patient ready for procedure: 1333 The procedure started at ( Time Only): 1349 The procedure ended at: 1351 Was the procedure delayed: Yes: Provider late: Provider with other patient on Q9 The patient left the procedure room at: 1400 Natalia Roque RN PRE PROCEDURE ASSESSMENT- Cysto Procedure Indication: Cystoscopy Latex Allergy: No Allergies reviewed and updated. Yes Pre-Procedure Vital Signs: BP: 146/86 Pulse: 72 Heart valve replacement: No Joint replacement: No Back Office UA otained: yes PROCEDURE PREP-Cysto Patient ID with two(2)identifiers verified by: Natalia Roque RN Pre-Procedure Antibiotics: None taken at home nor prior to procedure Patient Prep: Betadine Scrub to perineum and placement of Sterile Drape. COMPLETED Anesthetic Given:10 cc 2% Lidocaine jelly Natalia Roque RN UNIVERSAL PROTOCOL / SAFETY CHECKLIST Procedure to be performed: Cystoscopy Sign in Communication: Completed Time Out: Team Confirms the Correct Patient, Correct Procedure, Correct Site and Site Marking, Correct Position (if applicable). Sign Out Discussion: Completed Natalia Roque RN POST PROCEDURE NURSE ASSESSMENT Present along with physician during procedure exam. Natalia Roque RN Instruction sheet given and reviewed and patient verbalizes understanding: yes Current pain intensity is 0 on a 0-10 pain scale. Natalia Roque RN AMBULATORY PATIENT EDUCATION THE FOLLOWING WAS EVALUATED Motivation To Learn: Eager Family/Significant Other Support: None - Unavailable/disintere sted Cognitive Ability: Alert/Oriented Method of Instruction: Individual instruction Written instruction - handouts Verbal instruction The Following Influencing Factors Were Barriers To This Education Session: None The Following Physical Limitations Were Barriers To This Education Session: None Instruction Provided To: Patient Logistics Specialist Present: not applicable Discipline: Nursing Learning Topic: SURVIVAL SKILLS: post care Patient Evaluation: Verbalizes understanding: Yes Supplemental Material Given: Written Material Instructed By Natalia Roque RN In Department Urology . Kannan Jarvis MD 08/03/2023 7:39 AM Signed [place] [id number] AMBULATORY PROCEDURE NOTE NAME: Noel Loera AGE: [age] year old CLINIC #: [id number] DATE: August 02, 2023 SURGEON: Kannan Jarvis MD PROCEDURE: Cystoscopy ANESTHESIA: Lidocaine gel per urethra DIAGNOSIS: Bladder cancer INDICATION: Surveillance FINDINGS: Tumor present: No Urethra: Normal Prostate: Moderate lateral lobes Verumontanum: Open Urine cytology: Voided PROCEDURE: After informed consent was obtained, the patient was taken to the endoscopy suite. A time out was performed where the patient and the procedure were identified in the presence of the Nursing and Surgical Staff. Patient was placed in supine position, prepped and draped in the standard sterile fashion. Lidocaine gel was placed per urethra for local anesthesia. Cystoscopy was then performed using a 17 F flexible cystoscope. Sterile technique was maintained throughout. Please refer to above for specific findings during this part of the procedure. After carefully and atraumatically inspecting the urethra, prostate, and bladder, the bladder was emptied and the cystoscope was removed. The patient tolerated the procedure well and there were no complications. 08/02/23 Cysto: RANDY; cytology: pending 05/28/23 BCG x 3 completed 05/07/23 Cysto: RANDY; cytology: pending 01/29/23 Cysto: RANDY; cytology: negative 12/19/22 BCG x 6 complete I took over care here 10/10/22 Stent removal - over 5 small tumors which were fulgurated 08/30/2022 TURBT - cTaHG urothelial carcinoma, MP present and uninvolved (OSH pathology). Stent placed. 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 Unable to place stents. 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 Normal [facility] CYTOLOGY NON-GYNon CASE REPORT Normal [facility] Comment on above: Order Comment: Speci men Type: URINE SPECIMENOrdering Facility: [facility] Address: [address] [place] [address] Result Comment: [facility] Cytology Report Case: [id number] Authorizing Provider: Kannan Jarvis MD Collected: 08/02/2023 02:05 PM Ordering Location: Urology Received: 08/02/2023 06:43 PM Pathologist: Emiliano Gale MD, PhD Specimen: Urine, Midstream Performed By: #### C YTONON ####[facility] LABCLIA [id number] [place] [address] [place] CLINICAL HISTORY bladder cancer Normal [facility] Comment on above: Order Comment: Speci men Type: URINE SPECIMENOrdering Facility: [facility] Address: [address] [place] [address] Performed By: #### C YTONON ####[facility] LABCLIA [id number] [address] STATES OF [facility] FINAL DIAGNOSIS Normal [facility] Comment on above: Order Comment: Speci men Type: URINE SPECIMENOrdering Facility: [facility] Address: [address] [place] [address] Result Comment: A - Urine, Midstream, Urine Negative for high-grade urothelial carcinoma. Performed By: #### C YTONON ####[facility] LABCLIA [id number] [address] FINAL PERFORMING LAB Normal [facility] Comment on above: Order Comment: Speci men Type: URINE SPECIMENOrdering Facility: [facility] Address: [address] [place] [address] Result Comment: Tech nical component, exhibit designer screening performed at [facility], [address] [place] [address] CLIA# [id number] Diagnostic interpretation performed at [facility], [address] [place] [address] CLIA# [id number] Power Washer: Nelson Giraldo M.D. Performed By: #### C YTONON ####[facility] LABCLIA [id number] [address] [place] GROSS DESCRIPTION [facility] Comment on above: Order Comment: Speci men Type: URINE SPECIMENOrdering Facility: [facility] Address: [address] [place] [address] Result Comment: A. U rine, Midstream 30 cc clear yellow fluid with particles. ThinPrep prepared. Performed By: #### C YTONON ####[facility] LABCLIA [id number] [facility] [address] [place] UA DIP, URINE (POC)on 2023 BILIRUBIN UA (POCT) Negative Negative [facility] CLARITY UA (POCT) Clear [facility] COLOR UA (POCT) Yellow [facility] GLUCOSE UA (POCT) Negative Negative mg/dL [facility] Hemoglobin Ql (U) Negative Negative [facility] KETONE UA (POCT) Negative Negative mg/dL [facility] LEUKOCYTES UA (POCT) Negative Negative [facility] NITRITE UA (POCT) Negative Negative [facility] PH UA (POCT) 6.0 4.5 - 8.0 [facility] Protein Ql (U) Negative Negative mg/dL [facility] SPECIFIC GRAVITY UA (POCT) 1.015 1.005 - 1.030 [facility] UROBILINOGEN UA (POCT) 0.2 Normal E.U./dL [facility] Location:[facility], [address] [place] [address] POINT OF CARE [facility] Christoph 05-09-2023 CNPN Telephone (NCCAP) NOEL LOERA ([id number]) 1945 M Date Time Provider Department 05/09/23 KANNAN JARVIS During your visit today, we recorded the following information about you: Jeremiah Chavez 05/09/2023 9:04 AM Signed Call placed to patient, no answer. Left detailed message to call back to schedule appointment. For Scheduling when patient calls back: We can do Saturday 830 or Saturday at 1pm or at 1pm ----- Message ----- From: Ismael Stubbs MD Sent: 05/08/2023 4:30 PM EST To: Kannan Jarvis MD; [facility]; * La Kannan - We will get him in and scheduled. Thanks - Francis. 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 He was the one where the [facility] team had difficulty catheterizing and so I placed an indwelling catheter for 6 weeks for his treatments. I scoped him today and no stricture or false passage so I think your team should be able to get catheter in for treatment if you'd be able to get him scheduled for 3 weekly treatments next month. I'll see him back in 3 months for his next scope. Thanks! Jeremiah Jara 05/09/2023 10:11 AM Signed Patient has been scheduled for 05/14, 05/21, and 05/28 and has been notified. Thank you! Jeremiah Chavez Allergies As of Date: 05/09/2023 (No Known Allergies) Date Reviewed: 05/07/2023 Reviewed by: Maddie Mcdonough MA - Fully Assessed Reason for Visit: Appointment [186] Prescriptions as of 05/09/2023 - Urinary Bag (URINARY LEG BAG) kit 5 Each as needed. - oxybutynin XL (DITROPAN XL) 5 mg 24 hr tablet Take 1 tablet by mouth once daily. - escitalopram oxalate (LEXAPRO) 10 mg tablet Take 10 mg by mouth every morning. - lisinopril (ZESTRIL) 40 mg tablet Take 40 mg by mouth once daily. - omeprazole (PRILOSEC) 20 mg capsule Take 20 mg by mouth every morning. - simvastatin (ZOCOR) 40 mg tablet Take 40 mg by mouth every morning. - ALPRAZolam (XANAX) 0.5 mg tablet take 1 tablet by mouth every morning then take 1 tablet every evening if needed for anxiety Problem List As Of Date 05/09/2023 Noted Resolved Malignant neoplasm of overlapping sites of blad*11/02/2022 Encounter Status:Closed by JEREMIAH CHAVEZ on 05/09/23 [address] [facility] [address] BRAIN WO CONTon CT BRAIN WO CONT CT BRAIN WO CONT Examination: Noncontrast brain CT Date of Exam:05/02/2023 Clinical History:Vertigo ataxia Comparison:10/05/2017 Procedure: Multi-detector CT performed through the brain without IV contrast. Automatic exposure control (AEC) was utilized. Findings: There is no intracranial hemorrhage, extra-axial fluid collection, mass effect, or hydrocephalus. Cabrera-white matter differentiation is appropriate. Infarcts may be occult on CT, but grossly no acute infarct identified There is no midline shift. IMPRESSION: 1. No acute findings. All CT scans at this facility use dose modulation, iterative reconstruction, and/or weight based dosing when appropriate to reduce radiation dose to as low as reasonably achievable. Finalized by Neil Taylor MD on 05/02/2023 11:46 AM Normal [facility] CT Head WO contraston 2023 Examination: Noncontrast brain CT Date of Exam:05/02/2023 Clinical History:Vertigo ataxia Comparison:10/05/2017 Procedure: Multi-detector CT performed through the brain without IV contrast. Automatic exposure control (AEC) was utilized. Findings: There is no intracranial hemorrhage, extra-axial fluid collection, mass effect, or hydrocephalus. Cabrera-white matter differentiation is appropriate. Infarcts may be occult on CT, but grossly no acute infarct identified There is no midline shift. IMPRESSION: 1. No acute findings. All CT scans at this facility use dose modulation, iterative reconstruction, and/or weight based dosing when appropriate to reduce radiation dose to as low as reasonably achievable. Finalized by Neil Taylor MD on 05/02/2023 11:46 AM SECTNeil Kim MD - 05/02/2023 Examination: Noncontrast brain CT Date of Exam:05/02/2023 Clinical History:Vertigo ataxia Comparison:10/05/2017 Procedure: Multi-detector CT performed through the brain without IV contrast. Automatic exposure control (AEC) was utilized. Findings: There is no intracranial hemorrhage, extra-axial fluid collection, mass effect, or hydrocephalus. Cabrera-white matter differentiation is appropriate. Infarcts may be occult on CT, but grossly no acute infarct identified There is no midline shift. IMPRESSION: 1. No acute findings. All CT scans at this facility use dose modulation, iterative reconstruction, and/or weight based dosing when appropriate to reduce radiation dose to as low as reasonably achievable. Finalized by Neil Taylor MD on 05/02/2023 11:46 AM [facility] Radiology Study observation (narrative) [facility] CT Head WO contrastOrdered B y: Neil Taylor on 05-02-2023 [facility] Work Phone: CNOVon 01-29-2023 CNOV Office Visit (URFHR) NOEL LOERA ([id number]) 1945 M Date Time Provider Department 01/29/23 11:00 AM KANNAN JARVIS URFHR During your visit today, we recorded the following information about you: Temperature Pulse Respiration Blood pressure 97.8 degrees 73/minute 18/minute 117/76 Weight 78.8 kg Alison Tyler RN 01/29/2023 11:08 AM Signed [facility] - DEPARTMENT OF UROLOGY AFTER YOUR CYSTOSCOPY Kannan Jarvis MD Cysto post procedure instructions You have undergone a cystoscopy. Your doctor has inserted a telescope into your urinary bladder through your urethra to view the inside of your bladder. WHAT TO EXPECT: Possible burning during urination and/or blood-tinged urine. WHAT TO DO: Resume normal activity and medications. Drink 6-8 glasses of fluid each day for 3 days to help flush your urinary system. If a Biopsy was done, avoid Aspirin for 3 days. MEDICATIONS: You were given a preventative antibiotic, prior to the procedure. WHEN TO CALL THE DOCTOR: IF you have a fever over 100 degrees Fahrenheit. IF you are unable to urinate. IF blood clots form in your urine. IF your urine becomes very bloody and does not clear with drinking extra fluids. Kannan Jarvis MD 01/29/2023 1:32 PM Signed [place] [id number] AMBULATORY PROCEDURE NOTE NAME: Noel Loera AGE: [age] year old CLINIC #: [id number] DATE: January 29, 2023 SURGEON: Kannan Jarvis MD PROCEDURE: Cystoscopy ANESTHESIA: Lidocaine gel per urethra DIAGNOSIS: Bladder cancer INDICATION: Surveillance FINDINGS: Tumor present: No Urethra: Normal Prostate: Moderate lateral lobes Verumontanum: Open Urine cytology: Bladder wash PROCEDURE: After informed consent was obtained, the patient was taken to the endoscopy suite. A time out was performed where the patient and the procedure were identified in the presence of the Nursing and Surgical Staff. Patient was placed in supine position, prepped and draped in the standard sterile fashion. Lidocaine gel was placed per urethra for local anesthesia. Cystoscopy was then performed using a 17 F flexible cystoscope. Sterile technique was maintained throughout. Please refer to above for specific findings during this part of the procedure. After carefully and atraumatically inspecting the urethra, prostate, and bladder, the bladder was emptied and the cystoscope was removed. The patient tolerated the procedure well and there were no complications. Oncologic History as Outlined in Dr. Stubbs's Office Note: 01/29/23 12/19/22 BCG x 6 complete 10/10/22 Stent removal - over 5 small tumors which were fulgurated 08/30/2022 TURBT - cTaHG urothelial carcinoma, MP present and uninvolved (OSH pathology). Stent placed. 08/28/2022 Cystoscopy - three 0.5 cm papillary tumors on a stalk, back wall, anterior wall, right wall 05/24/2022, 06/21/2022 mitomycin x2 05/17/2022 stent removal 04/27/2022 Antegrade nephrostogram and nephrostomy tube removal 04/20/2022 Percutaneous nephrostomy 04/19/2022 Restaging TURBT - atypical urothelial cells proliferating from primary tumor (OSH pathology). Unable to place stents. 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 ASSESSMENT/PLAN: Next surveillance cysto in 3 months. Discussed maintenance BCG, he wishes to think things over. By signing my name below, I, Chip Lizama, attest that this documentation has been prepared under the direction and in the presence of Dr. Jarvis Electronically signed, Chip Lizama Scribe STAFF PHYSICIAN NOTE OF PERSONAL INVOLVEMENT IN CARE The above noted history, physical, assessment and plan were reviewed with the provider and critical portions of the HANDP were confirmed. I evaluated and examined the patient and agree with the plan above and provided direct supervision of the above provider during this patient's care. Kannan Jarvis MD Referring Provider: KANNAN JARVIS [[id number]] Allergies As of Date: 01/29/2023 (No Known Allergies) Date Reviewed: 01/29/2023 Reviewed by: Loulou Simpson MA - Fully Assessed Reason for Visit: Established Patient [175] Primary Visit Diagnosis:Malignant neoplasm of overlapping sites of bladder (HCC) [C67.8] Order(s):[] ciprofloxacin HCl 500 mg tab(s) (CIPRO)Disp: Rfl: [] lidocaine urojet 2 % 11 mL topical gel (GLYDO)Disp: Rfl: UA DIP, URINE (POC) [[id number]] Order #: [id number]. #:[id number] CYTOLOGY NON-PLANER OFFBEARER [[id number]] Order #: [id number] (more content not included)... Normal [facility] CYTOLOGY NON-GYNon 3 CASE REPORT Normal [facility] Comment on above: Order Comment: Speci men Type: FLUID SPECIMEN [facility] Address: [address] [place], [place] [id number] Result Comment: [facility] Cytology Report Case: [id number] Authorizing Provider: Kannan Jarvis MD Collected: 01/29/2023 04:27 PM Ordering Location: Urology Received: 01/30/2023 07:32 AM Pathologist: Cesar Thrasher MD Specimen: BLADDER WASH Performed By: #### C YTONON #### [facility] CLIA [id number] [address] [place] [address] CLINICAL HISTORY history of bladder cancer Normal [facility] Comment on above: Order Comment: Speci men Type: FLUID SPECIMEN [facility] Address: [address] [place] [address] Performed By: #### C YTONON #### [facility] CLIA [id number] [address] [place] [address] FINAL DIAGNOSIS Normal [facility] Comment on above: Order Comment: Speci men Type: FLUID SPECIMEN [facility] Address: [address] [place] [address] Result Comment: A - BLADDER WASH: Negative for high-grade urothelial carcinoma. Performed By: #### C YTONON #### [facility] CLIA [id number] [address] [place] [address] FINAL PERFORMING LAB Normal [facility] Comment on above: Order Comment: Speci men Type: FLUID SPECIMEN [facility] Address: [address] [place] [address] Result Comment: Tech nical component, exhibit designer screening performed at [facility], [address] [place] [address] CLIA# [id number] Diagnostic interpretation performed at [facility], [address] [place] [address] CLIA# [id number] Power Washer: Jonas Zhang M.D. Performed By: #### C YTONON #### [facility] CLIA [id number] [address] [place] [address] GROSS DESCRIPTION A. BLADDER WASH Normal [facility] Comment on above: Order Comment: Speci men Type: FLUID SPECIMEN [facility] Address: [address], [place] [id number] Result Comment: 35 c c hazy yellow fluid . ThinPrep prepared. Performed By: #### C YTONOVinnie #### [facility] CLIA [id number] CNNURSEon 12-11-2022 [facility] Nurse Visit (URFHR) NOEL LOERA ([id number]) 1945 M Date Time Provider Department 12/11/22 10:30 AM NURSE UROL MATIAS URR During your visit today, we recorded the following information about you: Temperature Pulse Blood pressure Weight 97.6 degrees 62/minute 155/48 80.7 kg Alison Tyler RN 12/11/2022 11:03 AM Signed UROLOGY NURSE OFFICE VISIT REASON FOR VISIT: Catheter Change:Indwelling Urethral Pain Assessment: No 0 on a scale of 0 to 10 Procedure: The Indwelling Urethral indwelling erickson was removed without difficulty. The new 16 F coude erickson was inserted using sterile technique by Dr. Jarvis, due to past difficult insertion. The balloon was inflated to 10CC with sterile water. The patient tolerated the procedure well. Comments:N/A Plan: Catheter to be removed after #6 BCG treatment Alison Tyler RN Allergies As of Date: 12/11/2022 (No Known Allergies) Date Reviewed: 12/11/2022 Reviewed by: Loulou Simpson MA - Fully Assessed Reason for Visit: Established Patient [175] Primary Visit Diagnosis:Encounter for replacement of urinary catheter [Z46.6] Prescriptions as of 12/11/2022 - oxybutynin XL (DITROPAN XL) 5 mg 24 hr tablet Take 1 tablet by mouth once daily. - escitalopram oxalate (LEXAPRO) 10 mg tablet Take 10 mg by mouth every morning. - lisinopril (ZESTRIL) 40 mg tablet Take 40 mg by mouth once daily. - omeprazole (PRILOSEC) 20 mg capsule Take 20 mg by mouth every morning. - simvastatin (ZOCOR) 40 mg tablet Take 40 mg by mouth every morning. - ALPRAZolam (XANAX) 0.5 mg tablet take 1 tablet by mouth every morning then take 1 tablet every evening if needed for anxiety Problem List As Of Date 12/11/2022 Noted Resolved Malignant neoplasm of overlapping sites of blad*11/02/2022 Encounter Status:Closed by ALISON TYLER on 12/11/22 [facility] Christoph 11-20-2022 [facility] ([id number]) 1945 M Date Time Provider Department 11/20/22 TRI ADKINSAmisha During your visit today, we recorded the following information about you: Tri Adkins RN 11/20/2022 2:59 PM Signed Patient calling with multiple questions about catheter. All questions addressed to satisfaction. Allergies As of Date: 11/20/2022 (No Known Allergies) Date Reviewed: 11/14/2022 Reviewed by: Jeremiah Cowart RN - Fully Assessed Reason for Visit: Patient Question [5223] Prescriptions as of 11/20/2022 - oxybutynin XL (DITROPAN XL) 5 mg 24 hr tablet Take 1 tablet by mouth once daily. - escitalopram oxalate (LEXAPRO) 10 mg tablet Take 10 mg by mouth every morning. - lisinopril (ZESTRIL) 40 mg tablet Take 40 mg by mouth once daily. - omeprazole (PRILOSEC) 20 mg capsule Take 20 mg by mouth every morning. - simvastatin (ZOCOR) 40 mg tablet Take 40 mg by mouth every morning. - ALPRAZolam (XANAX) 0.5 mg tablet take 1 tablet by mouth every morning then take 1 tablet every evening if needed for anxiety Problem List As Of Date 11/20/2022 Noted Resolved Malignant neoplasm of overlapping sites of blad*11/02/2022 Encounter Status:Closed by TRI ADKINS on 11/20/22 [facility] KIDNEY/BLADDERon 10-19-19 [facility] NO[facility] LO[facility] ([id number]) 1945 M Date Time Provider Department 10/15/22 [facility] JARVIS [facility] During your visit today, we recorded the following information about you: Alison Martinez Coord 10/15/2022 2:03 PM Signed Patient and called asking about Cysto scheduled in November and asked that it be canceled and the one scheduled in January be made due to the treatments starting 11/02 and lasting 6 weeks. Cysto scheduled to accommodate in case delays in treatment due to location change or infection. Patient and are nervous that [facility] would not be able to insert catheter (Coude) due to past experiences and asked if [facility] would not be able to complete the treatment on 11/02 if they could have treatments in [place] or here at [facility], I said yes but would have to see the availability at that time. Allergies As of Date: 10/15/2022 (No Known Allergies) Date Reviewed: 10/10/2022 Reviewed by: Rudy Ayers RN - Fully Assessed Reason for Visit: Appointment [186] Prescriptions as of 10/15/2022 - escitalopram oxalate (LEXAPRO) 10 mg tablet Take 10 mg by mouth every morning. - multivit-minerals/fol ic acid (MEN'S MULTIVITAMIN GUMMIES ORAL) Take 2 tablets by mouth once daily. - solifenacin 10 mg tablet Take 10 mg by mouth once daily. - cephALEXin (KEFLEX) 500 mg capsule take 1 capsule by mouth EVERY 24 HOURS - lisinopril (ZESTRIL) 40 mg tablet Take 40 mg by mouth once daily. - omeprazole (PRILOSEC) 20 mg capsule Take 20 mg by mouth every morning. - simvastatin (ZOCOR) 40 mg tablet Take 40 mg by mouth every morning. - ALPRAZolam (XANAX) 0.5 mg tablet take 1 tablet by mouth every morning then take 1 tablet every evening if needed for anxiety Problem List As Of Date: 10/15/2022 (None) Encounter Status:Closed by ALISON LOPEZ on 10/15/22 [facility] UA DIP, URINE (POC)on 2022 BILIRUBIN UA (POCT) Negative Negative [facility] CLARITY UA (POCT) Clear [facility] COLOR UA (POCT) Yellow [facility] GLUCOSE UA (POCT) Negative Negative mg/dL [facility] HEMOGLOBIN/BLOOD UA (POCT) Negative Negative [facility] KETONE UA (POCT) Negative Negative mg/dL [facility] LEUKOCYTES UA (POCT) Trace Abnormal Negative [facility] NITRITE UA (POCT) Negative Negative [facility] PH UA (POCT) 7.5 4.5 - 8.0 [facility] Protein Ql (U) Negative Negative mg/dL [facility] SPECIFIC GRAVITY UA (POCT) 1.015 1.005 - 1.030 [facility] UROBILINOGEN UA (POCT) 0.2 E.U./dL Normal E.U./dL [facility] CNPNon 09-19-2022 [facility] ([facility]) NOEL LOER[facility] ([id number]) 1945 M Date Time Provider Department 09/19/22 KANNAN JARVIS During your visit today, we recorded the following information about you: Alison Michelle Ellis 09/19/2022 2:10 PM Signed LVM for patient that an appointment was made for , left direct number for patient to call and confirm or reschedule appointment Allergies As of Date: 09/19/2022 (No Known Allergies) Date Reviewed: 09/19/2022 Reviewed by: Ismael Stubbs MD - Fully Assessed Reason for Visit: Appointment [186] Prescriptions as of 09/19/2022 - multivit-minerals/fol ic acid (MEN'S MULTIVITAMIN GUMMIES ORAL) Take 2 tablets by mouth once daily. - solifenacin 10 mg tablet Take 10 mg by mouth once daily. - cephALEXin (KEFLEX) 500 mg capsule take 1 capsule by mouth EVERY 24 HOURS - lisinopril (ZESTRIL) 40 mg tablet Take 40 mg by mouth once daily. - omeprazole (PRILOSEC) 20 mg capsule Take 20 mg by mouth every morning. - simvastatin (ZOCOR) 40 mg tablet Take 40 mg by mouth every morning. - ALPRAZolam (XANAX) 0.5 mg tablet take 1 tablet by mouth every morning then take 1 tablet every evening if needed for anxiety Problem List As Of Date: 09/19/2022 (None) Encounter Status:Closed by AILSON LOPEZ on 09/19/22 [facility] CBC AUTO DIFFon 05-18-2022 BASO # 0.0 103/ul Normal 0.0-0.1 [facility] Comment on above: Performed By: #### C BC #### [facility] [address] [place] [address] Dr. Nella Thomas Basophils/100 WBC (Bld) 0.4 % Normal 0.2-2.0 [facility] Comment on above: Performed By: #### C BC #### [facility] [address] [place] [address] Dr. Nella Thomas EO # 0.0 103/ul Normal 0.0-0.7 [facility] Comment on above: Performed By: #### C BC #### [facility] [address] [place] [address] Dr. Nella Thomas Eosinophils/100 WBC (Bld) 0.7 % Critically low 0.9-7.0 [facility] Comment on above: Performed By: #### C BC #### [facility] [address] [place] [address] Dr. Nella Thomas Erythrocyte distribution width (RBC) [Ratio] 12.4 % Normal 11.0-15.0 [facility] Comment on above: Performed By: #### C BC #### [facility] [address] [place] [address] Dr. Nella Thomas Hematocrit (Bld) [Volume fraction] 44.0 % Normal 42.0-54.0 [facility] Comment on above: Performed By: #### C BC #### [facility] [address] [place] [address] Dr. Nella Thomas Hemoglobin (Bld) [Mass/Vol] 15.2 g/dL Normal 14.0-18.0 [facility] Comment on above: Performed By: #### C BC #### [facility] [address] [place] [address] Dr. Nella Thomas IG # 0.01 10e3/ul Normal 0.00-0.03 [facility] Comment on above: Performed By: #### C BC #### [facility] [address] [place] [address] Dr. Nella Thomas IG % 0.2 % Normal 0.0-0.5 [facility] Comment on above: Performed By: #### C BC #### [facility] [address] [place] [address] Dr. Nella Thomas LYMPH # 0.9 103/ul Critically low 1.2-3.8 [facility] Comment on above: Performed By: #### C BC #### [facility] [address] [place] [address] Dr. Nella Thomas Lymphocytes/100 WBC (Bld) 15.7 % Critically low 20.5-60.0 [facility] Comment on above: Performed By: #### C BC #### [facility] [address] [place] [address] Dr. Nella Thomas MANUAL DIFF REQ NO Normal [facility] Comment on above: Performed By: #### C BC #### [facility] [address] [place] [address] Dr. Nella Thomas MCH (RBC) [Entitic mass] 30.3 pg Normal 25.9-34.0 [facility] Comment on above: Performed By: #### C BC #### [facility] [address] [place] [address] Dr. Nella Thomas MCHC (RBC) [Mass/Vol] 34.5 g/dL Normal 29.9-35.2 [facility] Comment on above: Performed By: #### C BC #### [facility] [address] [place] [address] Dr. Nella Thomas MCV (RBC) [Entitic vol] 87.6 fL Normal 80.0-94.0 [facility] Comment on above: Performed By: #### C BC #### [facility] [address] [place] [address] Dr. Nella Thomas MONO # 0.5 103/ul Normal 0.3-0.8 [facility] Comment on above: Performed By: #### C BC #### [facility] [address] [place] [address] Dr. Nella Thomas Monocytes/100 WBC (Bld) 9.3 % Normal 1.7-12.0 [facility] Comment on above: Performed By: #### C BC #### [facility] [address] [place] [address] Dr. Nella Thomas NEUT # 4.1 103/ul Normal 1.4-6.5 [facility] Comment on above: Performed By: #### C BC #### [facility] [address] [place] [address] Dr. Nella Thomas Neutrophils/100 WBC (Bld) 73.7 % Normal 43.0-75.0 [facility] Comment on above: Performed By: #### C BC #### [facility] [address] [place] [address] Dr. Nella Thomas Platelet mean volume (Bld) [Entitic vol] 9.3 fL Critically low 9.5-13.5 [facility] Comment on above: Performed By: #### C BC #### [facility] [address] [place] [address] Dr. Nella Thomas PLT 208 103/ul Normal 150-450 [facility] Comment on above: Performed By: #### C BC #### [facility] [address] [place] [address] Dr. Nella Thomas RBC 5.02 106/ul Normal 4.70-6.10 [facility] Comment on above: Performed By: #### C BC #### [facility] [address] [place] [address] Dr. Nella Thomas WBC 5.5 103/ul Normal 4.0-11.0 [facility] Comment on above: Performed By: #### C BC #### [facility] [address] [place] [address] Dr. Nella Thomas PROF CHEM 8 (BAS METB)on Anion gap [Moles/Vol] 18.1 mmol/L Normal [facility] Comment on above: Performed By: #### B MP #### [facility] [address] [place] [address] Dr. Nella Thomas Calcium [Mass/Vol] 9.6 mg/dL Normal 8.5-10.1 [facility] Comment on above: Performed By: #### B MP #### [facility] [address] [place] [address] Dr. Nella Thomas Chloride [Moles/Vol] 101 mmol/L Normal 98-107 [facility] Comment on above: Performed By: #### B MP #### [facility] [address] [place] [address] Dr. Nella Thomas CO2 [Moles/Vol] 22.8 mmol/L Normal 21.0-32.0 [facility] Comment on above: Performed By: #### B MP #### [facility] [address] [place] [address] Dr. Nella Thomas Creatinine [Mass/Vol] 1.37 mg/dL Critically high 0.70-1.30 [facility] Comment on above: Performed By: #### B MP #### [facility] [address] [address] [address] Nella Thomas EGFR-AF [place]IZ[place] >60 Normal >=60 [facility] Comment on above: Performed By: #### B MP #### [facility] [address] [address] [address] Nella Thomas EGFR-NON AF [place] 51 mL/min/1.73m2 Critically low >=60 [facility] Comment on above: Performed By: #### B MP #### [facility] [address] [address] [address] Nella Thomas Glucose [Mass/Vol] 98 mg/dL Normal 74-106 [facility] Comment on above: Performed By: #### B MP #### [facility] [address] [address] [address] Nella Thomas Potassium [Moles/Vol] 4.9 mmol/L Normal 3.5-5.1 [facility] Comment on above: Performed By: #### B MP #### [facility] [address] [place] [address] Dr. Nella Thomas Sodium [Moles/Vol] 137 mmol/L Normal 136-145 [facility] Comment on above: Performed By: #### B MP #### [facility] [address] [address] [address] Nella Thomas Urea nitrogen [Mass/Vol] 26.0 mg/dL Critically high 7.0-18.0 [facility] Comment on above: Performed By: #### B MP #### [facility] [address] [address] [address] Nella Thomas Urea nitrogen/Creatinine [Mass ratio] 19.0 mg/mg Normal [facility] Comment on above: Performed By: #### B MP #### [facility] [address] [address] [address] Nella Thomas Covid-19 PCR ([facility])on SARS-CoV-2 (COVID-19) RNA LINDA+probe Ql (Unsp spec) Not detected Normal NOT DETECTED [facility] Comment on above: Result Comment: This test is not yet approved or cleared by the [place] FDA. When there are no FDA-approved or cleared tests available, and other criteria are met, FDA can make tests available under an emergency access mechanism called an Emergency Use Authorization (EUA). The EUA for this test is supported by the [place] of Health and Human Service's (HHS's) declaration that circumstances exist to justify the emergency use of in vitro diagnostics for the detection and/or diagnosis of the virus that causes COVID-19. This EUA will remain in effect (meaning this test can be used) for the duration of the COVID-19 declaration justifying emergency of IVDs, unless it is terminated or revoked by FDA (after which the test may no longer be used). When diagnostic testing is negative, the possibility of a false negative should be considered in the context of a patient's recent exposures and the presence of clinical signs and symptoms consistent with SARS-CoV-2. Performed By: #### C VDTB #### [facility] [address] [place] [address] Dr. Nella Thomas CBC AUTO DIFFon 03-20-2022 BASO # 0.0 103/ul Normal 0.0-0.1 [facility] Comment on above: Performed By: #### C BC #### [facility] [address] [place] [address] Dr. Nella Thomas Basophils/100 WBC (Bld) 0.0 % Critically low 0.2-2.0 [facility] Comment on above: Performed By: #### C BC #### [facility] [address] [place] [address] Dr. Nella Thomas EO # 0.0 103/ul Normal 0.0-0.7 [facility] Comment on above: Performed By: #### C BC #### [facility] [address] [place] [address] Dr. Nella Thomas Eosinophils/100 WBC (Bld) 1.0 % Normal 0.9-7.0 [facility] Comment on above: Performed By: #### C BC #### [facility] [address] [place] [address] Dr. Nella Thomas Erythrocyte distribution width (RBC) [Ratio] 12.6 % Normal 11.0-15.0 [facility] Comment on above: Performed By: #### C BC #### [facility] [address] [place] [address] Dr. Nella Thomas Hematocrit (Bld) [Volume fraction] 42.8 % Normal 42.0-54.0 [facility] Comment on above: Performed By: #### C BC #### [facility] [address] [place] [address] Dr. Nella Thomas Hemoglobin (Bld) [Mass/Vol] 14.8 g/dL Normal 14.0-18.0 [facility] Comment on above: Performed By: #### C BC #### [facility] [address] [place] [address] Dr. Nella Thomas IG # 0.00 10e3/ul Normal 0.00-0.03 [facility] Comment on above: Performed By: #### C BC #### [facility] [address] [place] [address] Dr. Nella Thomas IG % 0.0 % Normal 0.0-0.5 [facility] Comment on above: Performed By: #### C BC #### [facility] [address] [place] [address] Dr. Nella Thomas LYMPH # 1.1 103/ul Critically low 1.2-3.8 [facility] Comment on above: Performed By: #### C BC #### [facility] [address] [place] [address] Dr. Nella Thomas Lymphocytes/100 WBC (Bld) 26.9 % Normal 20.5-60.0 [facility] Comment on above: Performed By: #### C BC #### [facility] [address] [place] [address] Dr. Nella Thomas MANUAL DIFF REQ NO Normal [facility] Comment on above: Performed By: #### C BC #### [facility] [address] [address] [address] Nella Thomas MCH (RBC) [Entitic mass] 30.5 pg Normal 25.9-34.0 [facility] Comment on above: Performed By: #### C BC #### [facility] [address] [place] [address] Dr. Nella Thomas MCHC (RBC) [Mass/Vol] 34.6 g/dL Normal 29.9-35.2 [facility] Comment on above: Performed By: #### C BC #### [facility] [address] [place] [address] Dr. Nella Thomas MCV (RBC) [Entitic vol] 88.2 fL Normal 80.0-94.0 [facility] Comment on above: Performed By: #### C BC #### [facility] [address] [place] [address] Dr. Nella Thomas MONO # 0.3 103/ul Normal 0.3-0.8 [facility] Comment on above: Performed By: #### C BC #### [facility] [address] [place] [address] Dr. Nella Thomas Monocytes/100 WBC (Bld) 8.2 % Normal 1.7-12.0 [facility] Comment on above: Performed By: #### C BC #### [facility] [address] [place] [address] Dr. Nella Thomas NEUT # 2.6 103/ul Normal 1.4-6.5 [facility] Comment on above: Performed By: #### C BC #### [facility] [address] [place] [address] Dr. Nella Thomas Neutrophils/100 WBC (Bld) 63.9 % Normal 43.0-75.0 [facility] Comment on above: Performed By: #### C BC #### [facility] [address] [place] [address] Dr. Nella Thomas Platelet mean volume (Bld) [Entitic vol] 9.2 fL Critically low 9.5-13.5 [facility] Comment on above: Performed By: #### C BC #### [facility] [address] [address] [address] Nella Thomas PLT 170 103/ul Normal 150-450 [facility] Comment on above: Performed By: #### C BC #### [facility] [address] [place] [address] Dr. Nella Thomas RBC 4.85 106/ul Normal 4.70-6.10 [facility] Comment on above: Performed By: #### C BC #### [facility] [address] [place] [address] Dr. Nella Thomas WBC 4.0 103/ul Normal 4.0-11.0 [facility] Comment on above: Performed By: #### C BC #### [facility] [address] [place] [address] Dr. Nella Thomas Covid-19 PCR ([facility])on 03-08 SARS-CoV-2 (COVID-19) RNA LINDA+probe Ql (Unsp spec) Not detected Normal NOT DETECTED [facility] Comment on above: Result Comment: This test is not yet approved or cleared by the [place] FDA. When there are no FDA-approved or cleared tests available, and other criteria are met, FDA can make tests available under an emergency access mechanism called an Emergency Use Authorization (EUA). The EUA for this test is supported by the [place] of Health and Human Service's (HHS's) declaration that circumstances exist to justify the emergency use of in vitro diagnostics for the detection and/or diagnosis of the virus that causes COVID-19. This EUA will remain in effect (meaning this test can be used) for the duration of the COVID-19 declaration justifying emergency of IVDs, unless it is terminated or revoked by FDA (after which the test may no longer be used). When diagnostic testing is negative, the possibility of a false negative should be considered in the context of a patient's recent exposures and the presence of clinical signs and symptoms consistent with SARS-CoV-2. Performed By: #### C VDTBH #### [facility] [address] [place] [address] Dr. Nella Thomas PROF CHEM 8 (BAS METB)on Anion gap [Moles/Vol] 13.6 mmol/L Normal [facility] Comment on above: Performed By: #### B MP #### [facility] [address] [place] [address] Dr. Nella Thomas Calcium [Mass/Vol] 9.2 mg/dL Normal 8.5-10.1 [facility] Comment on above: Performed By: #### B MP #### [facility] [address] [address] [address] Nella Thomas Chloride [Moles/Vol] 103 mmol/L Normal 98-107 [facility] Comment on above: Performed By: #### B MP #### [facility] [address] [place] [address] Dr. Nella Thomas CO2 [Moles/Vol] 26.5 mmol/L Normal 21.0-32.0 [facility] Comment on above: Performed By: #### B MP #### [facility] [address] [place] [address] Dr. Nella Thomas Creatinine [Mass/Vol] 1.08 mg/dL Normal 0.70-1.30 [facility] Comment on above: Performed By: #### B MP #### [facility] [address] [place] [address] Dr. Nella Thomas EGFR-AF [place] >60 Normal >=60 [facility] Comment on above: Performed By: #### B MP #### [facility] [address] [place] [address] Dr. Nella Thomas EGFR-NON AF [place] >60 Normal >=60 [facility] Comment on above: Performed By: #### B MP #### [facility] [address] [place] [address] Dr. Nella Thomas Glucose [Mass/Vol] 98 mg/dL Normal 74-[address] [facility] Comment on above: Performed By: #### B MP #### [facility] [address] [place] [address] Dr. Nella Thomas Potassium [Moles/Vol] 4.1 mmol/L Normal 3.5-5.1 [facility] Comment on above: Performed By: #### B MP #### [facility] [address] [address] [address] Nella Thomas Sodium [Moles/Vol] 139 mmol/L Normal 136-[address] [facility] Comment on above: Performed By: #### B MP #### [facility] [address] [address] [address] Nella Thomas Urea nitrogen [Mass/Vol] 17.0 mg/dL Normal 7.0-18.0 [facility] Comment on above: Performed By: #### B MP #### [facility] [address] [place] [address] Dr. Nella Thomas Urea nitrogen/Creatinine [Mass ratio] 15.7 mg/mg Normal [facility] Comment on above: Performed By: #### B MP #### [facility] [address] [place] [address] Dr. Nella Thomas PROTIMEon 03-20-2022 INR Coag (PPP) [Relative time] 1.05 {INR} Normal [facility] Comment on above: Performed By: #### P T, PTT #### [facility] [address] [place] [address] Dr. Nella Thomas INR GUIDELINES SEE BELOW Normal [facility] Comment on above: Result Comment: CAROLANN RED INR: 2.0 - 3.0 CONDITIONS NOT LISTED BELOW 2.5 - 3.5 FOR PROSTHETIC HEART VALVE REPLACEMENT 2.5 - 3.5 RECURRENT THROMBOSIS Performed By: #### P T, PTT #### [facility] [address] [place] [address] Dr. Nella Thomas PT Coag (PPP) [Time] 11.3 s Normal 9.0-11.6 [facility] Comment on above: Performed By: #### P T, PTT #### [facility] [address] [place] [address] Dr. Nella Thomas PTTon 03-20-2022 aPTT Coag (Bld) [Time] 26.9 s Normal 22.3-36.2 [facility] Comment on above: Performed By: #### P T, PTT #### [facility] [address] [place] [address] Dr. Nella Thomas Vital Signs Date Time Vital Sign Value Performing Clinician Darrick stuart 03-11-2024 11:09-0500 Body height 177.8 cm Ewarosamaria Chaudhary BAR ASSISTANT-[employer]SEM[employer]ER Work Phone: [facility] 03-11-2024 11:09-0500 Body mass index (BMI) [Ratio] 25.11 kg/m2 Ewa Miryamgel BAR ASSISTANT-[employer]ER [employer] ASSEMBLER [email or web address] 03-11-2024 11:09-0500 Body weight 79.38 kg Ewa Miryamgel BAR ASSISTANT-DEICER [employer] ASSEMBLER Work Phone: [facility] 03-11-2024 11:09-0500 Diastolic blood pressure 80 mm[Hg] Ewa Neena BAR ASSISTANT-DEICER K[employer] ASSEMBLER Work Phone: [facility] 03-11-2024 11:09-0500 Heart rate 67 /min Ewarosamaria Chaudhary BAR ASSISTANT-[employer]ER [employer]SEM[employer]ER Work Phone: [facility] 03-11-2024 11:09-0500 SaO2% (BldA) [Mass fraction] 100 % Ewarosamaria Chaudhary BAR ASSISTANT-DEICER [employer] ASSEMBLER Work Phone: [facility] 03-11-2024 11:09-0500 Systolic blood pressure 133 mm[Hg] Ewarosamaria Chaudhary BAR ASSISTANT-DEICER K[employer] ASSEMBLER Work Phone: [facility] [employer] [facility] 09-12-2023 13:10-0400 Body temperature 98.4 [degF] Chair Essex Work Phone: [facility] 09-12-2023 13:10-0400 Diastolic blood pressure 74 mm[Hg] Chair Davida Work Phone: [facility] 09-12-2023 13:10-0400 Heart rate 69 /min Chair Davida Work Phone: [facility] 09-12-2023 13:10-0400 Respiratory rate 18 /min Chair Essex Work Phone: [facility] 09-12-2023 13:10-0400 SaO2% (BldA) [Mass fraction] 98 % Chair Essex Work Phone: [facility] 09-12-2023 13:10-0400 Systolic blood pressure 141 mm[Hg] Chair Davida Work Phone: [facility] 09-05-2023 13:10-0400 Body temperature 98.1 [degF] Chair Essex Work Phone: [facility] 09-05-2023 13:10-0400 Diastolic blood pressure 75 mm[Hg] Chair Essex Work Phone: [facility] 09-05-2023 13:10-0400 Heart rate 78 /min Chair Davida Work Phone: [facility] 09-05-2023 13:10-0400 Respiratory rate 18 /min Chair Essex Work Phone: [facility] 09-05-2023 13:10-0400 SaO2% (BldA) [Mass fraction] 98 % Chair Essex Work Phone: [facility] 09-05-2023 13:10-0400 Systolic blood pressure 121 mm[Hg] Chair Essex Work Phone: [facility] 08-29-2023 13:00-0400 Body temperature 97.81 [degF] Chair Essex Work Phone: [facility] 08-29-2023 13:00-0400 Diastolic blood pressure 95 mm[Hg] Chair Essex Work Phone: [facility] 08-29-2023 13:00-0400 Heart rate 83 /min Chair Essex Work Phone: [facility] 08-29-2023 13:00-0400 Respiratory rate 18 /min Chair Essex Work Phone: [facility] 08-29-2023 13:00-0400 SaO2% (BldA) [Mass fraction] 97 % Chair Essex Work Phone: [facility] 08-29-2023 13:00-0400 Systolic blood pressure 151 mm[Hg] Chair Davida Work Phone: [facility] 05-28-2023 13:16-0500 Body temperature 97.7 [degF] Chair Essex Work Phone: [facility] 05-28-2023 13:16-0500 Diastolic blood pressure 99 mm[Hg] Chair Essex Work Phone: [facility] 05-28-2023 13:16-0500 Heart rate 79 /min Chair Essex Work Phone: [facility] 05-28-2023 13:16-0500 Respiratory rate 16 /min Chair Davida Work Phone: [facility] 05-28-2023 13:16-0500 SaO2% (BldA) [Mass fraction] 98 % Chair Davida Work Phone: [facility] 05-28-2023 13:16-0500 Systolic blood pressure 148 mm[Hg] Chair Davida Work Phone: [facility] 05-21-2023 13:28-0500 Body height 180.3 cm Donato Krishnan MD Work Phone: [facility] 05-21-2023 13:28-0500 Body mass index (BMI) [Ratio] 25.19 kg/m2 Donato Krishnan MD Work Phone: [facility] 05-21-2023 13:28-0500 Body weight 81.92 kg Donato Krishnan MD Work Phone: [facility] 05-21-2023 13:28-0500 Diastolic blood pressure 78 mm[Hg] Donato Krishnan MD Work Phone: [facility] 05-21-2023 13:28-0500 Heart rate 65 /min Donato Krishnan MD Work Phone: [facility] 05-21-2023 13:28-0500 Systolic blood pressure 147 mm[Hg] Donato Krishnan MD Work Phone: [facility] 05-21-2023 08:40-0500 Body temperature 98.01 [degF] Chair Essex Work Phone: [facility] 05-21-2023 08:40-0500 Diastolic blood pressure 89 mm[Hg] Chair Essex Work Phone: [facility] 05-21-2023 08:40-0500 Heart rate 100 /min Chair Davida Work Phone: [facility] 05-21-2023 08:40-0500 Respiratory rate 18 /min Chair Essex Work Phone: [facility] 05-21-2023 08:40-0500 SaO2% (BldA) [Mass fraction] 99 % Chair Essex Work Phone: [facility] 05-21-2023 08:40-0500 Systolic blood pressure 137 mm[Hg] Chair Essex Work Phone: [facility] 05-14-2023 13:03-0500 Body temperature 98.01 [degF] Chair Essex Work Phone: [facility] 05-14-2023 13:03-0500 Diastolic blood pressure 90 mm[Hg] Chair Davida Work Phone: [facility] 05-14-2023 13:03-0500 Heart rate 72 /min Chair Essex Work Phone: [facility] 05-14-2023 13:03-0500 Respiratory rate 18 /min Chair Essex Work Phone: [facility] 05-14-2023 13:03-0500 SaO2% (BldA) [Mass fraction] 100 % Chair Davida Work Phone: [facility] 05-14-2023 13:03-0500 Systolic blood pressure 139 mm[Hg] Chair Essex Work Phone: [facility] 05-02-2023 10:54-0500 Body mass index (BMI) [Ratio] 24.69 kg/m2 Katherin Sterling MD Work Phone: [facility] 05-02-2023 10:54-0500 Body weight 80.29 kg Katherin Sterling MD Work Phone: [facility] 05-02-2023 10:54-0500 Diastolic blood pressure 81 mm[Hg] Katherin Sterling MD Work Phone: [facility] 05-02-2023 10:54-0500 Heart rate 65 /min Katherin Sterling MD Work Phone: [facility] 05-02-2023 10:54-0500 Systolic blood pressure 137 mm[Hg] Katherin Sterling MD Work Phone: [facility] 04-16-2023 14:26-0500 Body height 180.3 cm Donato Krishnan MD Work Phone: [facility] 04-16-2023 14:26-0500 Body mass index (BMI) [Ratio] 24.94 kg/m2 Donato Krishnan MD Work Phone: [facility] 04-16-2023 14:26-0500 Body weight 81.1 kg Donato Krishnan MD Work Phone: [facility] 04-16-2023 14:26-0500 Diastolic blood pressure 96 mm[Hg] Donato Krishnan MD Work Phone: [facility] 04-16-2023 14:26-0500 Heart rate 69 /min Donato Krishnan MD Work Phone: [facility] 04-16-2023 14:26-0500 Systolic blood pressure 176 mm[Hg] Donato Krishnan MD Work Phone: [facility] 12-19-2022 13:55-0400 Body temperature 98.2 [degF] Chair Higuera Work Phone: [facility] 12-19-2022 13:55-0400 Diastolic blood pressure 85 mm[Hg] Chair Essex Work Phone: [facility] 12-19-2022 13:55-0400 Heart rate 66 /min Chair Davida Work Phone: [facility] 12-19-2022 13:55-0400 Respiratory rate 16 /min Chair Essex Work Phone: [facility] 12-19-2022 13:55-0400 Systolic blood pressure 129 mm[Hg] Chair Essex Work Phone: [facility] 12-11-2022 10:30-0400 Body temperature 97.59 [degF] Nurse [facility] 12-11-2022 10:30-0400 Body weight 80.74 kg Nurse [facility] 12-11-2022 10:30-0400 Diastolic blood pressure 48 mm[Hg] Nurse [facility] 12-11-2022 10:30-0400 Heart rate 62 /min Nurse [facility] 12-11-2022 10:30-0400 Systolic blood pressure 155 mm[Hg] Nurse [facility] 12-05-2022 13:05-0400 Body temperature 98.1 [degF] Chair Davida Work Phone: [facility] 12-05-2022 13:05-0400 Diastolic blood pressure 71 mm[Hg] Chair Essex Work Phone: [facility] 12-05-2022 13:05-0400 Heart rate 69 /min Chair Essex Work Phone: [facility] 12-05-2022 13:05-0400 Respiratory rate 18 /min Chair Davida Work Phone: [facility] 12-05-2022 13:05-0400 SaO2% (BldA) [Mass fraction] 98 % Chair Davida Work Phone: [facility] 12-05-2022 13:05-0400 Systolic blood pressure 120 mm[Hg] Chair Essex Work Phone: [facility] 11-28-2022 13:00-0400 Body temperature 98.1 [degF] Chair Davida Work Phone: [facility] 11-28-2022 13:00-0400 Diastolic blood pressure 75 mm[Hg] Chair Essex Work Phone: [facility] 11-28-2022 13:00-0400 Heart rate 65 /min Chair Davida Work Phone: [facility] 11-28-2022 13:00-0400 Respiratory rate 18 /min Chair Essex Work Phone: [facility] 11-28-2022 13:00-0400 SaO2% (BldA) [Mass fraction] 98 % Chair Essex Work Phone: [facility] 11-28-2022 13:00-0400 Systolic blood pressure 115 mm[Hg] Chair Essex Work Phone: [facility] 11-21-2022 13:13-0400 Body temperature 97.9 [degF] Chair Essex Work Phone: [facility] 11-21-2022 13:13-0400 Diastolic blood pressure 79 mm[Hg] Chair Davida Work Phone: [facility] 11-21-2022 13:13-0400 Heart rate 67 /min Chair Davida Work Phone: [facility] 11-21-2022 13:13-0400 Respiratory rate 18 /min Chair Essex Work Phone: [facility] 11-21-2022 13:13-0400 SaO2% (BldA) [Mass fraction] 98 % Chair Essex Work Phone: [facility] 11-21-2022 13:13-0400 Systolic blood pressure 126 mm[Hg] Chair Essex Work Phone: [facility] 11-14-2022 10:05-0400 Body temperature 98.49 [degF] Chair Davida Work Phone: [facility] 11-14-2022 10:05-0400 Diastolic blood pressure 85 mm[Hg] Chair Essex Work Phone: [facility] 11-14-2022 10:05-0400 Heart rate 69 /min Chair Davida Work Phone: [facility] 11-14-2022 10:05-0400 Respiratory rate 18 /min Chair Davida Work Phone: [facility] 11-14-2022 10:05-0400 SaO2% (BldA) [Mass fraction] 98 % Chair Davida Work Phone: [facility] 11-14-2022 10:05-0400 Systolic blood pressure 138 mm[Hg] Chair Davida Work Phone: [facility] 11-02-2022 09:10-0400 Body height 182.9 cm Ismael Stubbs MD Work Phone: [facility] 11-02-2022 09:10-0400 Body temperature 97.3 [degF] Ismael Stubbs MD Work Phone: [facility] 11-02-2022 09:10-0400 Body weight 79.47 kg Ismael Stubbs MD Work Phone: [facility] 11-02-2022 09:10-0400 Diastolic blood pressure 82 mm[Hg] Ismael Stubbs MD Work Phone: [facility] 11-02-2022 09:10-0400 Heart rate 66 /min Ismael Stubbs MD Work Phone: [facility] 11-02-2022 09:10-0400 Respiratory rate 16 /min Ismael Stubbs MD Work Phone: [facility] 11-02-2022 09:10-0400 SaO2% (BldA) [Mass fraction] 98 % Ismael Stubbs MD Work Phone: [facility] 11-02-2022 09:10-0400 Systolic blood pressure 125 mm[Hg] Ismael Stubbs MD Work Phone: [facility] 09-28-2022 09:24-0400 Body height 182.9 cm Gerda Valentino APRN.[employer]ICER KIT ASSEMBLER Work Phone: [facility] 09-28-2022 09:24-0400 Body temperature 97.3 [degF] Gerda Valentino APRN.DEICER KIT ASSEMBLER Work Phone: [facility] 09-28-2022 09:24-0400 Body weight 79.02 kg Gerda Valentino APRN.DEICER KIT ASSEMBLER Work Phone: [facility] 09-28-2022 09:24-0400 Diastolic blood pressure 75 mm[Hg] Gerda Valentino APRN.DEICER KIT ASSEMBLER Work Phone: [facility] 09-28-2022 09:24-0400 Heart rate 71 /min Gerda Valentino APRN.DEICER KIT ASSEMBLER Work Phone: [facility] 09-28-2022 09:24-0400 Respiratory rate 16 /min Gerda Valentino APRN.DEICER KIT ASSEMBLER Work Phone: [facility] 09-28-2022 09:24-0400 SaO2% (BldA) [Mass fraction] 98 % Gerda Valentino APRN.DEICER KIT ASSEMBLER Work Phone: [facility] 09-28-2022 09:24-0400 Systolic blood pressure 122 mm[Hg] Gerda Valentino APRN.DEICER KIT ASSEMBLER Work Phone: [facility] 04-30-2022 13:11-0500 Blood Pressure Location Dimitrios MATSON [facility] 04-30-2022 13:11-0500 Diastolic blood pressure 76 mm[Hg] Dimitrios MATSON [facility] 04-30-2022 13:11-0500 Heart rate 68 /min Dimitrios MATSON [facility] 04-30-2022 13:11-0500 Respiratory rate 16 /min Dimitrios MATSON [facility] 04-30-2022 13:11-0500 Systolic blood pressure 130 mm[Hg] Dimitrios MATSON [facility] 03-12-2022 10:19-0500 Blood Pressure Location Dimitrios MATSON [facility] 03-12-2022 10:19-0500 Diastolic blood pressure 101 mm[Hg] Dimitrios MATSON [facility] 03-12-2022 10:19-0500 Heart rate 85 /min Dimitrios MATSON [facility] 03-12-2022 10:19-0500 Respiratory rate 16 /min Dimitrios MATSON [facility] 03-12-2022 10:19-0500 Systolic blood pressure 138 mm[Hg] Dimitrios MATSON [facility] Encounters Encounter Date Encounter Type Care Provider Facility Start: 03-18-2024 End: 03-18-2024 ambulatory Noel GRIFFITH Facility:[facility] Start: 03-16-2024 End: 03-16-2024 Telephone encounter Ewa Chaudhary BAR ASSISTANT-DEICER KIT ASSEMBLER Work Phone: [facility] Comment on above: Sleep Lab (PSG) Start: 03-14-2024 End: 03-16-2024 Dwain Sterling MD Work Phone: [facility] Comment on above: Anxiety Start: 03-13-2024 End: 03-13-2024 Telephone encounter Krissy Ann [facility] Start: 03-11-2024 End: 03-11-2024 Office outpatient visit 25 minutes Ewa Chaudhary BAR ASSISTANT-DEICER KIT ASSEMBLER Work Phone: [facility] Comment on above: RICKI (obstructive sle ep apnea) (Primary Dx); CPAP use counseling; Psychophysiological insomnia; Overweight (BMI 25.0-29.9) Start: 02-28-2024 End: 02-28-2024 Patient encounter procedure Kannan Jarvis MD Work Phone: Urology Comment on above: Malignant neoplasm o f urinary bladder, unspecified site (HCC) (Primary Dx) Start: 02-28-2024 End: 02-28-2024 ambulatory [facility] Facility:[facility] Start: 02-11-2024 End: 02-11-2024 Refill Katherin Sterling MD Work Phone: [facility] Start: 01-28-2024 End: 01-28-2024 Refill Katherin Sterling MD Work Phone: [facility] Comment on above: Anxiety Start: 11-15-2023 End: 11-15-2023 Patient encounter procedure Kannan Jarvis MD Work Phone: Urology Comment on above: Malignant neoplasm o f overlapping sites of bladder (HCC) (Primary Dx); Flank pain Start: 11-15-2023 End: 11-15-2023 ambulatory [facility] Facility:[facility] Start: 09-12-2023 End: 09-12-2023 ambulatory Chair 23 [employer] Work Phone: Hematology/Oncology Comment on above: Malignant neoplasm o f overlapping sites of bladder (HCC) Refill Request Start: 09-05-2023 End: 09-06-2023 ambulatory Chair 23 [employer] Work Phone: Hematology/Oncology Comment on above: Malignant neoplasm o f overlapping sites of bladder (HCC) Start: 08-29-2023 End: 08-29-2023 ambulatory Chair 23 [address] Work Phone: Hematology/Oncology Comment on above: Malignant neoplasm o f overlapping sites of bladder (HCC) Start: 08-23-2023 End: 08-24-2023 ambulatory [facility] Start: 08-22-2023 End: 08-22-2023 ambulatory [facility] Start: 08-22-2023 Encounter for genera l adult medical examination without abnormal findings [facility] Start: 08-02-2023 End: 08-02-2023 Patient encounter procedure Kannan Jarvis MD Work Phone: Urology Comment on above: Malignant neoplasm o f overlapping sites of bladder (HCC) (Primary Dx) Start: 08-02-2023 End: 08-02-2023 ambulatory [facility] Facility:[facility] Start: 06-26-2023 Refill Katherin urbano MD Work Phone: [facility] Comment on above: Anxiety Start: 05-28-2023 End: 05-29-2023 ambulatory Chair 23 Davida Work Phone: Hematology/Oncology Comment on above: Malignant neoplasm o f overlapping sites of bladder (HCC) Start: 05-21-2023 End: 05-21-2023 [facility] Start: 05-21-2023 End: 05-21-2023 ambulatory Chair 23 [address] Work Phone: Hematology/Oncology Comment on above: Malignant neoplasm o f overlapping sites of bladder (HCC) Refill Request Start: 05-21-2023 Refill Katherin urbano MD Work Phone: [facility] Start: 05-21-2023 End: 05-21-2023 Postop follow up visit related to original px Donato Krishnan MD Work Phone: [facility] Comment on above: Infected epidermoid cyst (Primary Dx) Start: 05-14-2023 End: 05-15-2023 ambulatory Chair 23 [address] Work Phone: Hematology/Oncology Comment on above: Malignant neoplasm o f overlapping sites of bladder (HCC) Start: 05-09-2023 Telephone encounter Kannan Rae si, MD [facility] Comment on above: Appointment Start: 05-07-2023 Refill Katherin urbano MD Work Phone: [facility] Comment on above: Anxiety Start: 05-02-2023 End: 05-03-[address] [facility] Start: 05-02-2023 End: 05-02-2023 Office outpatient visit 25 minutes Katherin Sterling MD Work Phone: [facility] Comment on above: Vertigo (Primary Dx) Start: 04-16-2023 End: 04-16-2023 ambulatory [facility] Start: 04-16-2023 End: 04-16-2023 Office outpatient new 30 minutes Donato Krishnan MD Work Phone: [facility] General [facility] Comment on above: Cutaneous abscess of back excluding buttocks (Primary Dx) Start: 04-12-2023 [facility] Comment on above: Inflamed sebaceous c yst Start: 03-29-2023 Refill Katherin urbano MD Work Phone: [facility] Comment on above: Anxiety Start: 01-29-2023 End: 01-29-2023 ambulatory KANNAN JARVIS Facility:[facility] Start: 12-19-2022 End: 12-19-2022 ambulatory Chair 11 Davida Work Phone: Hematology/Oncology Comment on above: Malignant neoplasm o f overlapping sites of bladder (HCC) Start: 12-12-2022 Telephone encounter Delvis Segura RN Hematology/Oncology Comment on above: Patient Question Start: 12-11-2022 End: 12-11-2022 ambulatory KATHERIN STERLING Facility:[facility] Start: 12-11-2022 End: 12-11-2022 Nursing evaluation of patient and report Nurse Urol [facility] Comment on above: Encounter for replac ement of urinary catheter (Primary Dx) Start: 12-05-2022 End: 12-05-2022 ambulatory Chair 11 Davida Work Phone: Hematology/Oncology Comment on above: Malignant neoplasm o f overlapping sites of bladder (HCC) Start: 11-28-2022 End: 11-28-2022 ambulatory Chair 16 Davida Work Phone: Hematology/Oncology Comment on above: Malignant neoplasm o f overlapping sites of bladder (HCC) Start: 11-21-2022 End: 11-22-2022 ambulatory Chair 9 Davida Work Phone: Hematology/Oncology Comment on above: Malignant neoplasm o f overlapping sites of bladder (HCC) Start: 11-20-2022 Telephone encounter Tri salgado Comment on above: Patient Question Care Coordination (C 1D1 Post Treatment Call) Start: 11-16-2022 Orders Only Kenisha Segura APR, N.CNP Work Phone: Urology Start: 11-15-2022 Orders Only Marcell Garcia warehouse helper Comment on above: Dysuria (Primary Dx) Start: 11-14-2022 End: 11-14-2022 ambulatory Chair 15 Davida Work Phone: Hematology/Oncology Comment on above: Malignant neoplasm o f overlapping sites of bladder (HCC) Start: 11-12-2022 Telephone encounter Amanda soria RN Work Phone: Hematology/Oncology Comment on above: Care Coordination (U rinary Questions) Start: 11-09-2022 Telephone encounter Amanda soria RN Work Phone: Hematology/Oncology Comment on above: Care Coordination (T reatment Planning) Start: 11-08-2022 End: 11-08-2022 Patient encounter procedure Nurse Urol Work Phone: Urology Comment on above: Malignant neoplasm o f overlapping sites of bladder (HCC) (Primary Dx) Start: 11-02-2022 Telephone encounter Delvis Segura RN Hematology/Oncology Comment on above: Patient Update Start: 11-02-2022 End: 11-02-2022 ambulatory Chair Maisha Higuera Work Phone: Hematology/Oncology Comment on above: Malignant neoplasm o f prostate (HCC) (Primary Dx) Start: 11-02-2022 End: 11-02-2022 Office outpatient visit 25 minutes Ismael Stubbs MD Work Phone: Hematology/Oncology Comment on above: Malignant neoplasm o f overlapping sites of bladder (HCC) (Primary Dx) Start: 10-18-2022 End: 10-18-2022 Subsequent hospital visit by physician Kenisha Segura APRN.DEICER KIT ASSEMBLER Work Phone: Ultrasound Comment on above: Screening for genito urinary condition [Z13.89] Start: 10-15-2022 Telephone encounter Kannan Rae si, MD Work Phone: Urology Comment on above: Appointment Start: 10-12-2022 Telephone encounter Kenisha Segura APRN.DEICER KIT ASSEMBLER Work Phone: Urology Comment on above: Results Start: 10-11-2022 Telephone encounter Amanda soria RN Work Phone: Hematology/Oncology Comment on above: Care Coordination (U rology Update) Start: 10-10-2022 ambulatory Kannan Urbano Work Phone: Urology Start: 10-10-2022 End: 10-10-2022 Patient encounter procedure Kannan Jarvis MD Work Phone: Urology Comment on above: Screening for genito urinary condition (Primary Dx) Malignant neoplasm o f overlapping sites of bladder (HCC) Start: 10-01-2022 Telephone encounter Amanda soria RN Work Phone: Hematology/Oncology Comment on above: Care Coordination (A ppointment) Start: 09-28-2022 Telephone encounter Ismael parker MD [facility] Comment on above: Consult Start: 09-28-2022 End: 09-28-2022 ambulatory Gerda Valentino APRN.DEICER KIT ASSEMBLER Work Phone: Hematology/Oncology Comment on above: Malignant neoplasm o f overlapping sites of bladder (HCC) (Primary Dx) Malignant neoplasm o f overlapping sites of bladder (HCC) (Primary Dx); Malignant neoplasm of prostate (HCC) Start: 09-28-2022 End: 09-28-2022 Patient encounter procedure Gerda Chicho ALLENDEICER KIT ASSEMBLER Work Phone: DAVIDA Start: 09-18-2022 Telephone encounter Ismael parker MD Work Phone: Hematology/Oncology Comment on above: Lab Orders Start: 09-12-2022 Chart abstracting Ismael moran MD Work Phone: Hematology/Oncology Start: 09-05-2022 End: 09-05-2022 Patient encounter procedure Dimitrios MATSON [facility] Start: 06-21-2022 End: 06-25-[address] DIMITRIOS MATSON . Facility:[facility] Start: 06-15-2022 End: 06-15-2022 Patient encounter procedure Dimitrios MATSON [facility] Start: 05-24-2022 Encounter for preprocedural laboratory examination DR DIMITRIOS MATSON . [facility] Start: 05-24-2022 End: 05-24-[address] DIMITRIOS MATSON . Facility:[facility] Start: 05-18-2022 End: 05-19-[address] DIMITRIOS MATSON . Facility:[facility] Start: 05-18-2022 End: 05-19-2022 Encounter for preprocedural laboratory examination DR DIMITRIOS MATSON . Facility:[facility] Start: 05-14-2022 End: 05-14-2022 Lab Drop off Dimitrios MATSON [facility] Start: 05-14-2022 End: 05-14-2022 Patient encounter procedure Dimitrios MATSON [facility] Start: 04-30-2022 End: 04-30-2022 Patient encounter procedure Dimitrios MATSON [facility] Start: 04-25-2022 End: 04-25-2022 Patient encounter procedure ALISON ALFRED [facility] Start: 04-19-2022 End: 04-19-[address] DIMITRIOS MATSON . Facility:[facility] Start: 04-16-2022 End: 04-17-[address] DIMITRIOS MATSON . Facility:[facility] Start: 04-11-[address] DIMITRIOS MATSON . Fac ility:[facility] Start: 03-28-2022 End: 03-28-2022 Patient encounter procedure Dimitrios MATSON [facility] Start: 03-25-2022 Encounter for preprocedural cardiovascular examination DR DIMITRIOS MATSON . [facility] Start: 03-25-2022 Encounter for preprocedural laboratory examination DR DIMITRIOS MATSON . [facility] Start: 03-22-2022 End: 03-22-[address] DIMITRIOS MATSON . Facility:[facility] Start: 03-20-2022 End: 03-21-[address] DIMITRIOS MATSON . Facility:[facility] Start: 03-20-2022 End: 03-21-2022 Encounter for preprocedural cardiovascular examination DR DIMITRIOS MATSON . Facility:[facility] Start: 03-13-2022 End: 03-13-2022 Patient encounter procedure Dimitrios MATSON [facility] Start: 03-12-2022 End: 03-12-2022 Patient encounter procedure Dimitrios MATSON [facility] Start: 10-06-2017 End: 10-07-2017 Patient encounter DEFAULT PHYSICIAN Facility:[facility] Procedures Date Procedure Procedure Detail Performing Clinician Start: 02-28-2024 Urnls dip stick/tabl et rgnt auto w/o microscopy Kannan Jarvis MD Work Phone: Start: 11-15-2023 Urnls dip stick/tabl et rgnt auto w/o microscopy Kannan Jarvis MD Work Phone: Start: 08-23-2023 Lipid 1996 panel - S rashida or Plasma Chair Davida Work Phone: Start: 08-16-2023 Adult depression scr eening assessment Katherin Sterling MD Work Phone: Start: 08-02-2023 Urnls dip stick/tabl et rgnt auto w/o microscopy Kannan Jarvis MD Work Phone: Start: 05-21-2023 Follow-up visit Follow-up CHICOALONZOLisa AUBREYMITRA Dave KRISHNAN Start: 01-15-2023 Adult depression scr eening assessment Katherin Sterling MD Work Phone: Start: 10-18-2022 Us retroperitoneal r eal time w/image complete Kenisha Imelda YANG.DEICER KIT ASSEMBLER Work Phone: Start: 10-10-2022 Urnls dip stick/tabl et rgnt auto w/o microscopy Kannan Jarvis MD Work Phone: Start: 08-28-2022 Cystoscopy Dimitrios RESENDIZ Start: 04-27-2022 Removal of nephrostomy tube Dimitrios MATSON Start: 04-20-2022 Percutaneous inserti on of nephrostomy tube Dimitrios MATSON Start: 03-28-2022 Cystoscopy and trans urethral resection of bladder tumor Dimitrios MATSON Start: 03-22-2022 Transurethral resect ion of bladder neoplasm Dimitrios MATSON Start: 04-13-2021 Lipid 1996 panel - S rashida or Plasma Chair Davida Work Phone: Start: 03-30-2019 Colonoscopy Katherin Donaldson Work Phone: Start: 09-14-2015 Radical prostatectomy Gabrielle MATSON Start: 06-14-2015 Transrectal biopsy o f prostate using ultrasound guidance Dimitrios MATSON Bassini repair of in guinal hernia Dimitrios MATSON Cholecystectomy Dimitrios ESTEFANÍA EDWARDS Colonoscopy Dimitrios MATSON Vasectomy Dimitrios MATSON Plan of Treatment Date Care Activity Detail Author Start: 08-22-2028 Lipid panel Lipid Screening [facility] Start: 08-22-2026 Diabetes Screening Diabetes Screenin [facility] Start: 04-13-2026 Lipid 1996 panel - S rashida or Plasma Lipid Screening [facility] Start: 04-13-2026 Lipid panel Lipid Screening [facility] Start: 04-13-2026 LIPID SCREEN LIPID SCREEN [facility] Start: 01-15-2026 Diabetes Screening Diabetes Screenin [facility] Start: 11-02-2025 DIABETES SCREEN DIABETES SCREEN [facility] Start: 11-02-2025 Diabetes Screening Diabetes Screenin [facility] Start: 09-28-2025 DIABETES SCREEN DIABETES SCREEN [facility] Start: 03-12-2025 Tobacco Screening Tobacco Screening [facility] Start: 01-01-2025 Adult BMI Screening Adult BMI Screen ing [facility] Start: 01-01-2025 Tobacco Screening Tobacco Screening [facility] Start: 08-24-2024 End: 08-24-2024 Patient encounter procedure 08/24/2024 1:30 PM EDT Office Visit [facility] [address] [place] [address] [address] [place] [address] Katherin Sterling MD [address] [place] [address], [address] [place] [address] [facility] Start: 08-21-2024 Medicare Annual Well ness Visit Medicare Annual Wellness Visit [facility] Start: 08-15-2024 Depression Screening Depression Scre ening [facility] Start: 08-15-2024 Fall Risk Screening Fall Risk Screen ing [facility] Start: 05-21-2024 Adult BMI Screening Adult BMI Screen ing [facility] Start: 05-21-2024 Tobacco Screening Tobacco Screening [facility] Start: 05-02-2024 Adult BMI Screening Adult BMI Screen ing [facility] Start: 05-02-2024 Tobacco Screening Tobacco Screening [facility] Start: 04-16-2024 Adult BMI Screening Adult BMI Screen ing [facility] Start: 04-16-2024 Tobacco Screening Tobacco Screening [facility] Start: 03-18-2024 Tobacco Screening Tobacco Screening [facility] Start: 03-13-2024 Adult BMI Screening Adult BMI Screen ing [facility] Start: 03-11-2024 End: 03-11-2024 Patient encounter procedure 03/11/2024 11:00 AM EST Office Visit [facility] [address] [place] [address] Ewa Chaudhary, BAR ASSISTANT-DEICER KIT ASSEMBLER [address] [place] [address], [place] [id number] [facility] Start: 01-16-2024 Depression Screening Depression Scre ening [facility] Start: 01-09-2024 Screening for malign ant neoplasm of colon [facility] Start: 12-08-2023 COVID-19 Vaccine ( season) COVID-19 Vaccine ( season) [facility] Start: 12-08-2023 COVID-19 Vaccine ( season) COVID-19 Vaccine ( season) [facility] Start: 12-08-2023 Influenza vaccination C [facility] Start: 11-15-2023 End: 11-15-2023 Patient encounter procedure 11/15/2023 1:15 PM EDT Office Visit Urology [address] [address] Kannan Jarvis MD [address] [place] [address] [facility] Comment on above: [facility] Start: 09-12-2023 End: 09-12-2023 ambulatory 09/12/2023 1:00 PM EDT [facility] Hematology/Oncology [address] [place] [address] [place] [address] BCG // pt req Alison Light if possible Hematology/Oncology Comment on above: BCG // pt req Darling Light if possible Start: 09-05-2023 End: 09-05-2023 ambulatory 09/05/2023 1:00 PM EDT Infusion Center Hematology/Oncology [address] [place] [address] [place] [address] BCG // pt req Alison Light if possible Hematology/Oncology Comment on above: BCG // pt req Darling Light if possible Start: 05-21-2023 End: 05-21-2023 Patient encounter procedure 05/21/2023 1:30 PM EST Office Visit [facility] General [facility] [address] [place] [phone] Donato Krishnan MD [address] [place] [address] [facility] Start: 05-20-2023 Covid-19 Vaccine ( season) Covid-19 Vaccine () [facility] Start: 04-16-2023 End: 04-16-2023 Patient encounter procedure 04/16/2023 2:30 PM EST Office Visit [facility] [address] [place] [phone] Donato Krishnan MD [address] [place] [address] [facility] Start: 04-08-2023 Advance Directive Discussion Advance Directive Discussion [facility] Start: 04-08-2023 Behavioral Health Screening Behavioral Health Screening [facility] Start: 04-08-2023 Depression Assessment Depression Ass essment [facility] Start: 03-14-2023 COVID-19 Vaccine () COVID-19 Vaccine () [facility] Start: 12-07-2022 Influenza vaccination C [facility] Start: 11-15-2022 End: 01-15-2023 Bacteria identified in Urine by Culture URINE CULTURE Microbiology Routine Dysuria Expected: 11/15/2022 (Approximate), Expires: 01/15/2023 [facility] Work Phone: Comment on above: Expected: 11/15/2022 (Approximate), Expires: 01/15/2023 Start: 09-23-2022 End: 09-21-2023 CBC W Auto Differential panel - Blood CBC + DIFF Lab Routine Malignant neoplasm of overlapping sites of bladder (HCC) Expected: 09/23/2022 (Approximate), Expires: 09/21/2023 [facility] Work Phone: Comment on above: Expected: 09/23/2022 (Approximate), Expires: 09/21/2023 Start: 09-23-2022 End: 09-21-2023 Comprehensive metabolic 2000 panel - Serum or Plasma COMP METABOLIC PANEL Lab Routine Malignant neoplasm of overlapping sites of bladder (HCC) Expected: 09/23/2022 (Approximate), Expires: 09/21/2023 [facility] Work Phone: Comment on above: Expected: 09/23/2022 (Approximate), Expires: 09/21/2023 Start: 09-03-2022 RSV Vaccine (1 - 1-d ose 75+ series) RSV Vaccine (1 - 1-dose 75+ series) [facility] Start: 06-02-2022 COVID-19 VACCINE (6 - Pfizer series) COVID-19 VACCINE (6 - Pfizer series) [facility] Start: 04-13-2022 Fall Risk Screening Fall Risk Screen [facility] Start: 04-13-2022 Medicare Annual Well ness Visit Medicare Annual Wellness Visit [facility] Start: 04-08-2022 ADVANCE DIRECTIVE DISCUSSION ADVANCE DIRECTIVE DISCUSSION [facility] Start: 04-08-2022 DEPRESSION ASSESSMENT DEPRESSION ASS ESSMENT [facility] Start: 03-30-2022 Screening for malign ant neoplasm of colon Colonoscopy [facility] Start: 02-28-2021 COVID-19 VACCINE (4 - Booster for Pfizer series) COVID-19 VACCINE (4 - Booster for Pfizer series) [facility] Start: 04-13-2017 Pneumococcal Vaccine : 65+ (2 - PPSV23 or PCV20) Pneumococcal Vaccine: 65+ (2 - PPSV23 or PCV20) [facility] Start: 04-13-2017 Pneumococcal Vaccine : 65+ (2 of 2 - PPSV23 or PCV20) Pneumococcal Vaccine: 65+ (2 of 2 - PPSV23 or PCV20) [facility] Start: 09-03-2012 Pneumococcal Vaccine : 65+ (1 - PCV) Pneumococcal Vaccine: 65+ (1 - PCV) [facility] Start: 09-03-2012 PNEUMOCOCCAL: 65+ (1 - PCV) PNEUMOCOCCAL: 65+ (1 - PCV) [facility] Start: 2007 RSV Vaccine (1 - 1-d ose 60+ series) RSV Vaccine (1 - 1-dose 60+ series) [facility] Start: 09-03-1997 Administration of varicella zoster vaccine Zoster (Shingles) Vaccine (1 of 2) [facility] Start: 09-03-1997 SHINGRIX VACCINE (1 of 2) SHINGRIX VACCINE (1 of 2) [facility] Start: 09-03-1992 COLOGUARD (FIT-DNA) COLOGUARD (FIT-D NA) [facility] Start: 09-03-1992 Colonoscopy COLONOSCOPY [facility] Start: 09-03-1992 COLORECTAL CANCER SCREENING COLORECTAL CANCER SCREENING [facility] Start: 09-03-[address] COLONOGRAPHY [facility] Start: 09-03-1992 DIABETES SCREEN DIABETES SCREEN [facility] Start: 09-03-1992 FECAL OCCULT BLOOD FECAL OCCULT BLOO D [facility] Start: 09-03-1992 Screening for malign ant neoplasm of colon [facility] Start: 09-03-1992 [facility] Start: 09-03-1966 Administration of varicella zoster vaccine Zoster (Shingles) Vaccine (1 of 2) [facility] Start: 09-03-1966 DTaP,Tdap and Td Vaccines (1 - Tdap) DTaP,Tdap and Td Vaccines (1 - Tdap) [facility] Start: 09-03-1966 Urine microalbumin profile [facility] Start: 09-03-1965 Adult BMI Follow Up Plan Adult BMI Follow Up Plan [facility] Start: 09-03-1965 Anxiety Screening Anxiety Screening [facility] Start: 09-03-1965 Depression Screening Depression Scre ening [facility] Start: 09-03-1965 HEPATITIS C SCREENING HEPATITIS C SC [facility] Start: 09-03-1965 Hepatitis C screening Hepatitis C [facility] Start: 1945 ABDOMINAL AORTIC ANEURYSM SCREENING ABDOMINAL AORTIC ANEURYSM SCREENING [facility] CYTOLOGY NON-PLANER OFFBEARER CYTOLOGY NON-GY N Lab Routine Malignant neoplasm of overlapping sites of bladder (HCC) 08/02/2023 2:05 PM EDT [facility] Work Phone: CYTOLOGY NON-PLANER OFFBEARER CYTOLOGY NON-GY N Lab Routine Malignant neoplasm of overlapping sites of bladder (HCC) 11/15/2023 1:51 PM EDT [facility] CYTOLOGY NON-PLANER OFFBEARER CYTOLOGY NON-GY N Lab Routine Malignant neoplasm of urinary bladder, unspecified site (HCC) 02/28/2024 3:22 PM EST [facility] Work Phone: End: 03-12-2025 PSG Diagnostic [facility] Routine RICKI (obstructive sleep apnea) 1 Occurrences starting 03/12/2024 until 03/12/2025 [facility] Work Phone: Comment on above: 1 Occurrences starti ng 03/12/2024 until 03/12/2025 SURGICAL PATHOLOGY SURGICAL PATH OLOGY Lab Routine Screening for genitourinary condition 10/10/2022 2:56 PM EDT [facility] Work Phone: URINALYSIS, REFLEX MICROSCOPIC URINALYSIS, REFLEX MICROSCOPIC Lab Routine Screening for genitourinary condition Ordered: 10/10/2022 [facility] Work Phone: Comment on above: Ordered: 10/10/2022 End: 12-14-2024 US Kidney - bilateral and Urinary bladder US KIDNEY/BLADDER Radiology Routine Flank pain 1 Occurrences starting 11/15/2023 until 12/14/2024 [facility] Work Phone: Comment on above: 1 Occurrences starti ng 11/15/2023 until 12/14/2024 End: 11-09-2023 US KIDNEY/BLADDER US KIDNEY/BLADDER Radiology Routine Screening for genitourinary condition 1 Occurrences starting 10/10/2022 until 11/09/2023 [facility] Work Phone: Comment on above: 1 Occurrences starti ng 10/10/2022 until 11/09/2023 [facility] Immunizations Immunization Date Immunization Notes Care Provider [facility] 01-31-2024 influenza, high dose seasonal, preservative-free Ewa Kregel BAR ASSISTANT-DEICER KIT ASSEMBLER Work Phone: [facility] 01-17-2023 Influenza Vaccine, Quadrivalent, Adjuvanted Ewa Kregel BAR ASSISTANT-DEICER KIT ASSEMBLER Work Phone: [facility] 01-17-2023 influenza virus vaccine, unspecified formulation Kannan Jarvis MD Work Phone: [facility] 01-30-2022 SARS-CoV-2 (COVID-19 ) [id number] Dimitrios MATSON [facility] 01-23-2022 Influenza Vaccine, Quadrivalent, Adjuvanted Ewa Kregel BAR ASSISTANT-DEICER KIT ASSEMBLER Work Phone: [facility] 01-23-2022 influenza virus vaccine, unspecified formulation Dimitrios MATSON [facility] 07-15-2021 SARS-CoV-2 mRNA ([id number] se) vaccine Dimitrios MATSON [facility] 02-09-2021 Influenza Vaccine, Quadrivalent, Adjuvanted Ewa Neena BAR ASSISTANT-DEICER KIT ASSEMBLER Work Phone: [facility] 02-09-2021 influenza virus vaccine, unspecified formulation Dimitrios MATSON [facility] 01-03-2021 SARS-CoV-2 (COVID-19 ) mRNA BNT-162b2 vax Dimitrios MATSON [facility] 05-23-2020 SARS-CoV-2 (COVID-19 ) mRNA BNT-162b2 vax Dimitrios MATSON [facility] Comment on above: Result Comment: 2021: [id number] 05-03-2020 SARS-CoV-2 (COVID-19 ) mRNA BNT-162b2 vax Dimitrios MATSON [facility] Comment on above: Result Comment: 2021: [id number] 01-06-2020 influenza virus vaccine, unspecified formulation Dimitrios MATSON [facility] 01-06-2020 influenza, injectabl e, quadrivalent, preservative free Katherin Sterling MD Work Phone: [facility] 01-18-2019 influenza virus vaccine, unspecified formulation Dimitriosjean paul MATSON [facility] 01-18-2019 influenza, injectabl e, quadrivalent, preservative free Katherin Sterling MD Work Phone: [facility] 04-04-2018 influenza virus vaccine, unspecified formulation Dimitrios DANO [facility] Comment on above: Result Comment: 2021: DR STERLING 04-04-2018 influenza, injectabl e, quadrivalent, preservative free Katherin Sterling MD Work Phone: [facility] 01-20-2017 influenza virus vaccine, unspecified formulation Dimitrios MATSON [facility] 01-20-2017 influenza, injectabl e, quadrivalent, preservative free Katherin Sterling MD Work Phone: [facility] 04-13-2016 pneumococcal conjuga te vaccine, 13 valent Dimitrios MATSON [facility] Comment on above: Result Comment: 2021: DR STERLING 01-06-2015 influenza virus vaccine, unspecified formulation Katherin Sterling MD Work Phone: [facility] 01-06-2015 influenza, unspecifi ed formulation Dimitrios MATSON [facility] 01-20-2012 influenza virus vaccine, unspecified formulation Katherin Sterling MD Work Phone: [facility] 01-20-2012 influenza, unspecifi ed formulation Dimitrios MATSON [facility] Payers Date Payer Category Payer Managed Care Other (unspecified) [facility] [id number] 2021 Private Health Insurance [id number] 2012 Medicare [id number] 1959 Medicare [id number] 1959 Unknown [id number] 1947 Unknown [id number] 1947 Unknown [id number] .593 1947 Unknown [id number] .593 1947 Unknown [id number] .593 1947 Unknown [id number] .593 1947 Unknown [id number] .593 1947 Unknown [id number] .593 1947 Unknown [id number] .593 1947 Unknown [id number] .1286 1947 Unknown [id number] .1286 1947 Unknown [id number] .1286 1947 Unknown [id number] .1286 1947 Unknown [id number] .1286 1947 Unknown [id number] .1286 1947 Unknown [id number] Unknown Social History Date Type Detail Facility Start: 01-11-2020 End: 02-08-2022 Tobacco smoking status Ex-smoker (finding) [facility] Start: 04-27-2020 End: 09-28-2022 Sex Assigned At Male [facility] Tobacco smoking status Never [facility] End: 04-08-1979 History of tobacco use Current smoker [facility] End: 04-08-1979 History of tobacco use Cigarette Smoker [facility] Start: 02-08-2022 End: 09-12-2022 Tobacco use and exposure Smokeless tobacco non-user [facility] Start: 09-12-2022 Alcohol intake Ex-drinker (finding) [facility] Start: 1945 Sex Assigned At Not on file C [facility] Start: 09-13-2022 End: 03-18-2023 Alcohol intake Current drinker of alcohol (finding) [facility] Start: 09-13-2022 Alcohol Comment 1 daily [facility] History of tobacco use Passive smoker [facility] Start: 04-27-2020 End: 09-28-2022 History of Social function [facility] History of tobacco use Cigar Smoker [facility] Do you belong to any clubs or organizations such as jain groups, unions, fraternal or athletic groups, or school groups? Yes [facility] Are you now , , , , never or living with a partner? [facility] How often to you hav e a drink containing alcohol? 4 or more times a week [facility] How many standard dr inks containing alcohol do you have on a typical day? 1 or 2 [facility] How often do you hav e 6 or more drinks on 1 occasion? Never [facility] Do you feel stress - tense, restless, nervous, or anxious, or unable to sleep at night because your mind is troubled all the time - these days [OSQ] Only a little [facility] Start: 04-10-2020 Education [facility] Start: 03-13-2023 Alcohol Comment 5-6 weekly [facility] Start: 11-11-2014 Sex Male (finding) [facility] Medical Equipment Procedure Code Equipment Code Equipment Origin al Text Equipment Identifier Dates Set Stnt 26cm 10 .2fr Rb Amptz Pgtl Crv Ureter Ulthne Aq - [id number] FDA Start: 04-20-2022 Goals Date Patient Goal Desired Activity /State Personal health goal Comment on above: Formatting of this n ote might be different from the original. Evaluation of progress towards goal: Pt plans to return home with family support Functional Status Date Assessment Result Facility 09-05-2022 Functional Status N/A [facility] 05-14-2022 Functional Status N/A [facility] 04-30-2022 Functional Status N/A [facility] 03-28-2022 Functional Status N/A [facility] 03-12-2022 Functional Status N/A [facility] Clinical Notes 03-12-2022 to 03-18-2024 Telephone Encounter - Bonnie Trevizo - 03/16/2024 3:32 PM ESTTelephone Encounter - Bonnie Trevizo - 03/16/2024 3:32 PM ESTTelephone Encounter - Patti Paniagua CMA - 03/14/2024 3:19 PM EST Note Date & Type Note Facility 03-18-2024 Note General Surgery Offi ce/Clinic Note Chief Complaint consultation for colonoscopy HPI Staff 78 year old male presents on consultation from Dr. Matson for surveillance colonoscopy. Last colonoscopy completed 03/2019 with tubular adenoma. No known family history of colon cancer. Denies abdominal or rectal pain. No rectal bleeding or change in bowel habits. Denies nausea or vomiting. No unexplained weight loss. History of Present Illness 78 yo male with h/o htn, hyperlipidemia, migraines, RICKI, prostate and bladder cancers, referred for surveillance colonoscopy; last colonoscopy 2018 with removal of small descending colon tubular adenoma; denies change in bms or blood in stools, no abd complaints; operations significant for cholecystectomy, inguinal hernia repair and radical prostatectomy; no asa or NSAID use; no tobacco use; no fmhx of GI malignancy or IBD. Review of Systems PHQ Score Initial Depression Screen Score: 0 SCORE ROS - Provider Constitutional: no fever, no sweats, no weight loss. Eyes: no glasses, no blurred vision, no visual loss. ENMT: no dentures, no hoarseness, no swallowing difficulties, no hearing loss, no ear infection(s), no nose bleeds. Cardiovascular: normal blood pressure, no chest pain, regular heartbeat, no heart murmur. Respiratory: no shortness of breath, no cough, no asthma, no wheezing. Gastrointestinal: no nausea, no vomiting, no diarrhea, no constipation, no blood in stool, no change in bowel habits, no abdominal pain, no hepatitis. Genitourinary: no kidney stones, no urine infection, no dysuria. Musculoskeletal: no pain, no weakness. Skin: no changing moles, no rash, no skin lumps. Neurologic: no seizures, no epilepsy, no headache. Psychiatric: no emotional or psychiatric problem. Heme/Lymph: no bleeding problems, no anemia, no blood clots, no transfusions. Allergy/Immunologic: no swollen lymph nodes/glands, no IV drug abuse. Other: Additional ROS info: Except as noted in the above Review of Systems and in the History of Present Illness, all other systems have been reviewed and are negative or noncontributory. Physical Exam Vitals & Measurements HR: 68(Peripheral) RR: 16 BP: 134/94 HT: 72 in HT: 182 cm WT: 80.4 kg WT: 177.251 lb BMI: 24.27 HEENT: normal conjunctiva, sclera clear, no scleral icterus, EOM intact, PERRLA, oral mucosa moist without lesions. Neck: trachea midline, no mass, symmetric, no thyromegaly or nodules, no adenopathy Respiratory: lungs CTA, respirations non labored. Cardiovascular: regular rate and rhythm, no murmur, no pedal edema or varicosities. Gastrointestinal: soft, non distended, no tenderness, no masses, no palpable hernias, diastasis recti no, no hepatosplenomegaly; normal bs Lymphatic: no cervical adenopathy, no supraclavicular adenopathy. Musculoskeletal: normal gait, digits and nails without infection, nodes, cyanosis, clubbing. Skin: no rashes, no lesions, no ulcers, no subcutaneous nodules, induration. Psychiatric/Neuro: oriented to time, place, person, judgement normal, affect appropriate for age, insight intact, no focal deficits. Tests: review of old records completed , Discussed surgical options, risks, and possible complications with patient. Assessment/Plan 1. Personal history of adenomatous and serrated colon polyps (Z86.0101: Personal history of adenomatous and serrated colon polyps) plan colonoscopy under anesthesia, informed consent obtained. Follow-up No qualifying data available Problem List/Past Medical History Ongoing Anxiety Bladder cancer BMI 25.0-25.9,adult Epididymitis Essential hypertension Gastroesophageal reflux disease Gross hematuria History of colon polyps Impotence Migraine headache Mixed hyperlipidemia Obstructive sleep apnea syndrome Pancreatitis Personal history of adenomatous and serrated colon polyps Personal history of bladder cancer Personal history of prostate cancer Smoker UTI symptoms Historical No qualifying data Procedure/Surgical History Cystoscopy (08/28/2022), Removal of nephrostomy tube (04/27/2022), Percutaneous insertion of nephrostomy tube (04/20/2022), Cystoscopy and transurethral resection of bladder tumor (03/28/2022), TURBT - Transurethral resection of bladder tumor (03/22/2022), Colonoscopy (03/30/2019), Radical prostatectomy (09/14/2015), Transrectal biopsy of prostate using ultrasound (US) guidance (06/14/2015), Bassini repair of inguinal hernia, Cholecystectomy, Vasectomy. Medications lisinopril 40 mg Tab omeprazole 20 mg Cap-DR simvastatin 40 mg Tab Xanax, 0.5 mg, Oral, Daily Allergies No Known Allergies Social History Alcohol - Low Risk, 01/11/2020 Current. Liquor. Daily., 03/18/2024 Substance Abuse Never., 03/18/2024 Tobacco Former smoker, quit more than 30 days ago, stopped 40 yrs ago Tobacco Use:. Never Smokeless Tobacco Use:. Cigarettes, 0.25 per day. Started age 17.0 Years. Stopped age 38 Years., 03/18/2024 Family History (more content not included)... [facility] Comment on above: Result Comment: Elec tronically Signed By: GLADIS SILVERIO, Noel Huang\Date and Time Signed: 03/18/24 14:49 EST 03-16-2024 Miscellaneous Notes 03/12 Order received 03/16 Called PT LM to schedule sleep study. Patient has declined to have study completed at this time. Routed Kregel PSG Order and 03/11/24 Kregel Epic Notes Order Deferred documented in this encounter [facility] 03-16-2024 Telephone encounter Note 03/12 Order received 03/16 Called PT LM to schedule sleep study. Patient has declined to have study completed at this time. Routed [facility] PSG Order and 03/11/24 Kregel Epic Notes Order Deferred [facility] 03-14-2024 Miscellaneous Notes Refill request documented in this encounter [facility] 03-14-2024 Telephone encounter Note Refill request [facility] 03-13-2024 Miscellaneous Notes PAP mask and supplies order with supportive documentation faxed to [facility]. documented in this encounter [facility] 03-13-2024 Telephone encounter Note PAP mask and supplies order with supportive documentation faxed to [facility]. [facility] 03-11-2024 History of Presen t illness Narrative Images from the original note were not included. Chief Complaint: Noel Loera returns to the Sleep Clinic for follow up on 03/11/2024. He is a 78 y.o. male followed at the Sleep Clinic for RICKI, for which CPAP 10 cm H2O was prescribed. At the time of the last visit on 03/13/23, the plan was to continue CPAP. HPI: The patient reports that he is adherent to his nocturnal ventilatory support for 6 hours a night 7 days per week. He reports feeling the benefits of wearing it nightly and denies any am fatigue or excessive daytime sleepiness. Denies any aerophagia. He reports that he stopped wearing it because he does not feel any different if he wears it or not. He has had some weight loss since his initial study and we have offered to retest. He would like to repeat PSG at this time. He denies any dyspnea, fevers, chills, hemoptysis, wheezing, or chest pain. Overall, he is very pleased with his current status. He denies sleepiness while driving. Supplemental O2 use: none Current PAP interface: He uses a Nasal Mask. He does not use a chinstrap. He does use the heated inline humidifier. Cleaning supplies with soap and water. [place] Sleepiness Scale: Sitting and Reading: Never Watching TV: Never Sitting inactive in a public place (theater, meeting): Never As a passenger in a car for an hour without a break: Never Lying down in the afternoon to rest: Slight Chance Sitting and talking to someone: Never Sitting quietly after lunch (without alcohol): Never In a car, while stopped for a few minutes in traffic: Never Total: 1 OARRS: Reviewed: no PMH: Pertinent History: His pertinent medical history includes Past Medical History: Diagnosis Date Anxiety Arthritis 2018 Bladder cancer ([facility]) 01/2022 being treated at [facility], in remission currently as of 04/16/2023 Chest pain Depression April 2022 GERD (gastroesophageal reflux disease) Hyperlipidemia 1985 Hypertension 2018 Prostate cancer ([facility]) Visual impairment 1970 Medications: Reviewed with patient. Current Outpatient Medications: ALPRAZolam (XANAX) 0.5 mg tablet, take 1 tablet by mouth every morning and then take 1 tablet every evening if needed for anxiety Strength: 0.5 mg, Disp: 60 tablet, Rfl: 0 lisinopriL (PRINIVIL,ZESTRIL) 40 mg tablet, TAKE 1 TABLET (40 MG TOTAL) BY MOUTH IN THE MORNING, Disp: 90 tablet, Rfl: 2 omeprazole (PriLOSEC) 20 mg capsule, take 1 capsule by mouth every morning, Disp: 90 capsule, Rfl: 3 simvastatin (ZOCOR) 40 mg tablet, TAKE 1 TABLET BY MOUTH EVERY DAY IN THE MORNING (Patient taking differently: Take 1 tablet (40 mg total) by mouth nightly.), Disp: 90 tablet, Rfl: 1 Vitals: 03/11/24 1109 BP: 133/80 Pulse: 67 SpO2: 100% Weight: 79.4 kg (175 lb) Height: 177.8 cm (5' 10 ) Allergies: Reviewed with patient. Patient has no known allergies. Family History: Family History Problem Relation Age of Onset No Known Problems Mother Coronary artery disease Father Heart disease Father Early Father Parkinsonism Father Cancer Brother Cancer Brother Social History: Social History Socioeconomic History Marital status: Highest education level: Doctorate Tobacco Use Smoking status: Former Current packs/day: 0.25 Average packs/day: 0.3 packs/day for 12.0 years (3.0 ttl pk-yrs) Types: Cigarettes, Cigars Smokeless tobacco: Never Vaping Use Vaping status: Never Used Substance and Sexual Activity Alcohol use: Yes Alcohol/week: 5.0 standard drinks of alcohol Comment: 5-6 weekly Drug use: Never Sexual activity: Not Currently Partners: Female control/protection: Surgical Social Drivers of Health Financial Resource Strain: Low Risk (01/02/2024) Overall Financial Resource Strain (CARDIA) Difficulty of Paying Living Expenses: Not hard at all Food Insecurity: No Food Insecurity (01/02/2024) Hunger Screening Food Insecurity - Worry: Never True Food Insecurity - Inability: Never True Transportation Needs: No Transportation Needs (01/02/2024) PRAPARE - Transportation Lack of Transportation (Medical): No Lack of Transportation (Non-Medical): No Physical Activity: Sufficiently Active (04/10/2020) Exercise Vital Sign Days of Exercise per Week: 5 days Minutes of Exercise per Session: 30 min Stress: No Stress Concern Present (04/10/2020) [place] [employer] - Occupational Stress Questionnaire Feeling of Stress : Only a little Social Connections: Unknown (04/10/2020) Social Connection and Isolation Panel [NHANES] Frequency of Communication with Friends and Family: Patient declined Frequency of Social Gatherings with Friends and Family: Patient declined Attends Temple Services: Patient declined Active Member of Clubs or Organizations: Yes Attends Club or Organization Meetings: Patient declined Marital Status: Interpersonal Safety: Not At Risk (04/10/2020) Humiliation, Afraid, Rape, and Kick questionnaire Fear of Current or Ex-Partner: No Emotionally Abused: No Physically Abused: No Sexually Abused: No Housing Instability: Low Risk (01/02/2024) Housing Instability Housing Instability: No Travel History: Denies recent travel. ROS: All 11 systems have been reviewed: Review of Systems Constitutional: Negative for chills, fatigue and fever. Respiratory: Negative for cough, shortness of breath and wheezing. Cardiovascular: Negative for chest pain/discomfort. All other systems are reviewed and are negative except as noted. Physical Examination: Vital signs BP 133/80 Pulse 67 Ht 177.8 cm (5' 10 ) Wt 79.4 kg (175 lb) SpO2 100% BMI 25.11 kg/m Physical Exam Vitals and nursing note reviewed. Constitutional: Appearance: Normal appearance. Cardiovascular: Rate and Rhythm: Normal rate. Pulmonary: Breath sounds: Normal breath sounds. Musculoskeletal: Cervical back: Neck supple. Skin: General: Skin is warm and dry. Neurological: Mental Status: He is alert and oriented to person, place, and time. Psychiatric: Mood and Affect: Mood normal. Behavior: Behavior normal. Laboratory DATA: Lab Results Component Value Date CO2 29 08/23/2023 Lab Results Component Value Date TSH 1.71 01/09/2021 Lab Results Component Value Date WBC 5.4 01/08/2023 HGB 13.0 01/08/2023 HCT 38.8 (L) 01/08/2023 MCV 91 01/08/2023 PLT 362 01/08/2023 Lab Results Component Value Date FERRITIN 242 01/08/2023 Chemistry Component Value Date/Time K 4.5 08/23/2023 1535 CL 103 08/23/2023 1535 CO2 29 08/23/2023 1535 BUN 34 (H) 08/23/2023 1535 CREATININE 1.24 08/23/2023 1535 GLU 82 08/23/2023 1535 GLU 129 (H) 10/18/2017 0821 Component Value Date/Time CALCIUM 9.9 08/23/2023 1535 ALKPHOS 99 08/23/2023 1535 AST 25 08/23/2023 1535 AST 59 (H) 03/25/2015 0952 ALT 22 08/23/2023 1535 ALT 65 03/25/2015 0952 Lab Results Component Value Date TSH 1.71 01/09/2021 No results found. DATA: CPAP: 10 Titration: 02/2014 PS12/2013 w/ AHI of 10 DME: ANDRSE Data card was available for PAP usage data download. PAP compliance is unsatisfactory. IMAGING/PFT No results found. No results found. Impression: There are no diagnoses linked to this encounter. RICKI with adherence to nocturnal ventilatory support on a nightly basis. Obesity Body mass index is 25.11 kg/m . Ssential hypertension History of pancreatitis GERD Plan: Discussed diagnosis, its evaluation, treatment and usual course. All questions answered. Educational material distributed. No orders of the defined types were placed in this encounter. No orders of the defined types were placed in this encounter. He is to continue CPAP 10 cm H20 on a nightly basis. New mask and supplies as needed. Independently reviewed and interpreted data download and ESS We will do reconfirmation PSG Diet and exercise were discussed in detail. Any age appropriate or routine screening per PCP. Follow up in 6 Months time. If his condition should change prior to this he is encouraged to give our office a call. Discussed triggers to call back before follow up including weight change > 10%, major medical issues including stroke, arrhythmia or heart attack, or significant change in symptoms. EDUCATION: Driving precautions were reviewed. I advised the patient not to drive if sleepy, and to snout puller if sleepiness occurs while driving. Above plan as discussed with the patient who acknowledged understanding and agreement. Health risks associated with untreated RICKI were discussed (cardiopulmonary, cerebrovascular, and anesthesia/sedative-related). Discussed triggers to call back before next visit including weight change > 10%, major medical issues including stroke, arrhythmia or heart attack, or significant change in symptoms. This note is dictated with the use of M*Modal.Please note that this dictation was completed with computer voice recognition software. Quite often unanticipated grammatical, syntax, homophones, and other interpretive errors are inadvertently transcribed by the computer software. Please disregard these errors. Please excuse any errors that have escaped final proofreading. Ewa Lozano [facility] Office: [phone] 5:23 PM on 03/12/2024 CC: MD Ewa Parra APRN-CNP 03/12/24 1727 documented in this encounter [facility] 03-11-2024 Instructions ERUM Zhong - 03/11/2024 11:00 AM EST Images from the original note were not included. If you re looking for general health and wellness resources, please visit [email or web address] documented in this encounter [facility] 02-28-2024 Note HNO ID: [id number] Author: LENY LANCE RN Service: ? Author Type: Registered Nurse Type: Progress Notes Filed: 02/28/2024 15:11 Note Text: UNIVERSAL PROTOCOL / SAFETY CHECKLIST Procedure to be Performed: cystoscopy Sign In: A Moment of CARE was completed. Personnel directly involved with the procedure wore the appropriate PPE (Personal Protective Equipment). Patient/Surrogate Stated/Verified: PATIENT VERIFIED(optional for EMERGENT procedures): Patient name, Date of , Relevant allergies, and The intended procedure Time Out Communication: Intended patient and procedure match the source documents. Consent documented and matches the intended procedure. No correct side/site applicable for marking and visibility. Medications required for procedure verified. Fire risk assessed and interventions discussed. No implant(s) inserted. Sign Out: SIGN OUT (optional for EMERGENT procedures): All specimen containers correctly labeled. Leny Lance RN [facility] 02-28-2024 History of Presen t illness Narrative UNIVERSAL PROTOCOL / SAFETY CHECKLIST Procedure to be Performed: cystoscopy Sign In: A Moment of CARE was completed. Personnel directly involved with the procedure wore the appropriate PPE (Personal Protective Equipment). Patient/Surrogate Stated/Verified: PATIENT VERIFIED(optional for EMERGENT procedures): Patient name, Date of , Relevant allergies, and The intended procedure Time Out Communication: Intended patient and procedure match the source documents. Consent documented and matches the intended procedure. No correct side/site applicable for marking and visibility. Medications required for procedure verified. Fire risk assessed and interventions discussed. No implant(s) inserted. Sign Out: SIGN OUT (optional for EMERGENT procedures): All specimen containers correctly labeled. Leny Lance RN [place] [id number] AMBULATORY PROCEDURE NOTE NAME: Noel Loera AGE: [age] year old CLINIC #: [id number] DATE: February 28, 2024 SURGEON: Kannan Jarvis MD PROCEDURE: Cystoscopy ANESTHESIA: Lidocaine gel per urethra DIAGNOSIS: Bladder cancer INDICATION: Surveillance FINDINGS: Tumor present: No Urethra: Normal Prostate: Moderate lateral lobes Verumontanum: Open Urine cytology: Voided PROCEDURE: After informed consent was obtained, the patient was taken to the endoscopy suite. A time out was performed where the patient and the procedure were identified in the presence of the Nursing and Surgical Staff. Patient was placed in supine position, prepped and draped in the standard sterile fashion. Lidocaine gel was placed per urethra for local anesthesia. Cystoscopy was then performed using a 17 F flexible cystoscope. Sterile technique was maintained throughout. Please refer to above for specific findings during this part of the procedure. After carefully and atraumatically inspecting the urethra, prostate, and bladder, the bladder was emptied and the cystoscope was removed. The patient tolerated the procedure well and there were no complications. 02/28/24 Cysto: RANDY; cytology: pending 11/15/23 Cysto: RANDY; cytology: atypical 09/12/23 BCG x 3 completed 08/02/23 Cysto: RANDY; cytology: negative 05/28/23 BCG x 3 completed 05/07/23 Cysto: RANDY; cytology: pending 01/29/23 Cysto: RANDY; cytology: negative 12/19/22 BCG x 6 complete I took over care here 10/10/22 Stent removal - over 5 small tumors which were fulgurated 08/30/2022 TURBT - cTaHG urothelial carcinoma, MP present and uninvolved (OSH pathology). Stent placed. 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 Unable to place stents. 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 Surveillance cystoscopy in 3 months. By signing my name below, I, Satish Callaway, attest that this documentation has been prepared under the direction and in the presence of Dr. Jarvis Electronically signed, Edith Franco STAFF PHYSICIAN NOTE OF PERSONAL INVOLVEMENT IN CARE The above noted history, physical, assessment and plan were reviewed with the provider and critical portions of the H&P were confirmed. I evaluated and examined the patient and agree with the plan above and provided direct supervision of the above provider during this patient's care. Kannan Jarvis MD documented in this encounter [facility] 02-28-2024 Note HNO ID: [id number] Author: KANNAN JARVIS MD Service: ? Author Type: Physician Type: Progress Notes Filed: 02/28/2024 15:35 Note Text: [place] [id number] AMBULATORY PROCEDURE NOTE NAME: Noel Loera AGE: [age] year old CLINIC #: [id number] DATE: February 28, 2024 SURGEON: Kannan Jarvis MD PROCEDURE: Cystoscopy ANESTHESIA: Lidocaine gel per urethra DIAGNOSIS: Bladder cancer INDICATION: Surveillance FINDINGS: Tumor present: No Urethra: Normal Prostate: Moderate lateral lobes Verumontanum: Open Urine cytology: Voided PROCEDURE: After informed consent was obtained, the patient was taken to the endoscopy suite. A time out was performed where the patient and the procedure were identified in the presence of the Nursing and Surgical Staff. Patient was placed in supine position, prepped and draped in the standard sterile fashion. Lidocaine gel was placed per urethra for local anesthesia. Cystoscopy was then performed using a 17 F flexible cystoscope. Sterile technique was maintained throughout. Please refer to above for specific findings during this part of the procedure. After carefully and atraumatically inspecting the urethra, prostate, and bladder, the bladder was emptied and the cystoscope was removed. The patient tolerated the procedure well and there were no complications. 02/28/24 Cysto: RANDY; cytology: pending 11/15/23 Cysto: RANDY; cytology: atypical 09/12/23 BCG x 3 completed 08/02/23 Cysto: RANDY; cytology: negative 05/28/23 BCG x 3 completed 05/07/23 Cysto: RANDY; cytology: pending 01/29/23 Cysto: RANDY; cytology: negative 12/19/22 BCG x 6 complete I took over care here 10/10/22 Stent removal - over 5 small tumors which were fulgurated 08/30/2022 TURBT - cTaHG urothelial carcinoma, MP present and uninvolved (OSH pathology). Stent placed. 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 Unable to place stents. 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 Surveillance cystoscopy in 3 months. By signing my name below, I, Satish Callaway, attest that this documentation has been prepared under the direction and in the presence of Dr. Jarvis Electronically signed, Satish Callaway Scribe STAFF PHYSICIAN NOTE OF PERSONAL INVOLVEMENT IN CARE The above noted history, physical, assessment and plan were reviewed with the provider and critical portions of the HANDP were confirmed. I evaluated and examined the patient and agree with the plan above and provided direct supervision of the above provider during this patient's care. Kannan Jarvis MD [facility] 02-28-2024 Nurse Note Patient ID with (2) Identifiers, Verified by: Leny Lance RN Actual procedure/procedure scheduled: Yes Performing provider/scheduled provider: Yes Patient was roomed in: Q9- 08 Beauty Artist offered:Patient declines Patient arrived in the room at: 1445 Patient ready for procedure: 1504 The procedure started at ( Time Only): 1508 The procedure ended at: 1509 Was the procedure delayed: Yes: Patient late and Provider late: Provider with other patient on Q9 ProNox Utilized: No The patient left the procedure room at: 1520 Leny Lance RN PRE PROCEDURE ASSESSMENT- Cysto Latex Allergy: No Allergies reviewed and updated. Yes Pre-Procedure Vital Signs: BP: 169/88 Heart valve replacement: No Joint replacement: No Back Office UA otained: yes PROCEDURE PREP-Cysto Patient Prep: Betadine Placement of Sterile Drape: COMPLETED Anesthetic Given:10 cc 2% Lidocaine jelly Leny Lance RN POST PROCEDURE NURSE ASSESSMENT Present along with physician during procedure exam. Leny Lance RN Current pain intensity is 0 on a 0-10 pain scale. Leny Lance RN AMBULATORY PATIENT EDUCATION THE FOLLOWING WAS EVALUATED Motivation To Learn: Interested Family/Significant Other Support: High - Very involved in pt care Cognitive Ability: Alert/Oriented Method of Instruction: Individual instruction Written instruction/Handouts Verbal instruction The Following Influencing Factors Were Barriers To This Education Session: None The Following Physical Limitations Were Barriers To This Education Session: None Instruction Provided To: Patient and family member Logistics Specialist Present: not applicable Discipline: Nursing Learning Topic: SURVIVAL SKILLS: Complication Prevention Symptom Management Patient Evaluation: Verbalizes understanding: Yes Supplemental Material Given: Written Material Instructed By Leny Lance RN In Department Urology. [facility] 02-28-2024 Nurse Note Patient ID with (2) Identifiers, Verified by: Leny Lance RN Actual procedure/procedure scheduled: Yes Performing provider/scheduled provider: Yes Patient was roomed in: Q9- 08 Beauty Artist offered:Patient declines Patient arrived in the room at: 1445 Patient ready for procedure: 1504 The procedure started at ( Time Only): 1508 The procedure ended at: 1509 Was the procedure delayed: Yes: Patient late and Provider late: Provider with other patient on Q9 ProNox Utilized: No The patient left the procedure room at: 1520 Leny Lance RN PRE PROCEDURE ASSESSMENT- Cysto Latex Allergy: No Allergies reviewed and updated. Yes Pre-Procedure Vital Signs: BP: 169/88 Heart valve replacement: No Joint replacement: No Back Office UA otained: yes PROCEDURE PREP-Cysto Patient Prep: Betadine Placement of Sterile Drape: COMPLETED Anesthetic Given:10 cc 2% Lidocaine jelly Leny Lance RN POST PROCEDURE NURSE ASSESSMENT Present along with physician during procedure exam. Leny Lance RN Current pain intensity is 0 on a 0-10 pain scale. Leny Lance RN AMBULATORY PATIENT EDUCATION THE FOLLOWING WAS EVALUATED Motivation To Learn: Interested Family/Significant Other Support: High - Very involved in pt care Cognitive Ability: Alert/Oriented Method of Instruction: Individual instruction Written instruction/Handouts Verbal instruction The Following Influencing Factors Were Barriers To This Education Session: None The Following Physical Limitations Were Barriers To This Education Session: None Instruction Provided To: Patient and family member Logistics Specialist Present: not applicable Discipline: Nursing Learning Topic: SURVIVAL SKILLS: Complication Prevention Symptom Management Patient Evaluation: Verbalizes understanding: Yes Supplemental Material Given: Written Material Instructed By Leny Lance RN In Department Urology. documented in this encounter [facility] 02-11-2024 Miscellaneous Notes Refill request documented in this encounter [facility] 02-11-2024 Telephone encounter Note Refill request [facility] 01-28-2024 Miscellaneous Notes Refill request documented in this encounter [facility] 01-28-2024 Telephone encounter Note Refill request [facility] 11-15-2023 Note HNO ID: [id number] Author: KANNAN JARVIS MD Service: ? Author Type: Physician Type: Progress Notes Filed: 11/15/2023 16:34 Note Text: [place] [id number] AMBULATORY PROCEDURE NOTE NAME: Noel Loera AGE: [age] year old CLINIC #: [id number] DATE: November 15, 2023 SURGEON: Kannan Jarvis MD PROCEDURE: Cystoscopy ANESTHESIA: Lidocaine gel per urethra DIAGNOSIS: Bladder cancer INDICATION: Surveillance FINDINGS: Tumor present: No Urethra: Normal Prostate: Surgically absent Urine cytology: Voided PROCEDURE: After informed consent was obtained, the patient was taken to the endoscopy suite. A time out was performed where the patient and the procedure were identified in the presence of the Nursing and Surgical Staff. Patient was placed in supine position, prepped and draped in the standard sterile fashion. Lidocaine gel was placed per urethra for local anesthesia. Cystoscopy was then performed using a 17 F flexible cystoscope. Sterile technique was maintained throughout. Please refer to above for specific findings during this part of the procedure. After carefully and atraumatically inspecting the urethra, prostate, and bladder, the bladder was emptied and the cystoscope was removed. The patient tolerated the procedure well and there were no complications. 11/15/23 Cysto: RANDY; cytology: pending 09/12/23 BCG x 3 completed 08/02/23 Cysto: RANDY; cytology: pending 05/28/23 BCG x 3 completed 05/07/23 Cysto: RANDY; cytology: pending 01/29/23 Cysto: RANDY; cytology: negative 12/19/22 BCG x 6 complete I took over care here 10/10/22 Stent removal - over 5 small tumors which were fulgurated 08/30/2022 TURBT - cTaHG urothelial carcinoma, MP present and uninvolved (OSH pathology). Stent placed. 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 Unable to place stents. 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 Still having difficulty catheterizing at [facility], with associated pain. We have agreed to discontinue further treatment. Surveillance cystoscopy in 3 months. Endorses mild flank pain. I visualized efflux bilaterally but will obtain renal US to rule out hydronephrosis. Kannan Jarvis MD [facility] 11-15-2023 History of Presen t illness Narrative [place] [id number] AMBULATORY PROCEDURE NOTE NAME: Noel Loera AGE: [age] year old CLINIC #: [id number] DATE: November 15, 2023 SURGEON: Kannan Jarvis MD PROCEDURE: Cystoscopy ANESTHESIA: Lidocaine gel per urethra DIAGNOSIS: Bladder cancer INDICATION: Surveillance FINDINGS: Tumor present: No Urethra: Normal Prostate: Surgically absent Urine cytology: Voided PROCEDURE: After informed consent was obtained, the patient was taken to the endoscopy suite. A time out was performed where the patient and the procedure were identified in the presence of the Nursing and Surgical Staff. Patient was placed in supine position, prepped and draped in the standard sterile fashion. Lidocaine gel was placed per urethra for local anesthesia. Cystoscopy was then performed using a 17 F flexible cystoscope. Sterile technique was maintained throughout. Please refer to above for specific findings during this part of the procedure. After carefully and atraumatically inspecting the urethra, prostate, and bladder, the bladder was emptied and the cystoscope was removed. The patient tolerated the procedure well and there were no complications. 11/15/23 Cysto: RANDY; cytology: pending 09/12/23 BCG x 3 completed 08/02/23 Cysto: RANDY; cytology: pending 05/28/23 BCG x 3 completed 05/07/23 Cysto: RANDY; cytology: pending 01/29/23 Cysto: RANDY; cytology: negative 12/19/22 BCG x 6 complete I took over care here 10/10/22 Stent removal - over 5 small tumors which were fulgurated 08/30/2022 TURBT - cTaHG urothelial carcinoma, MP present and uninvolved (OSH pathology). Stent placed. 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 Unable to place stents. 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 Still having difficulty catheterizing at [place], with associated pain. We have agreed to discontinue further treatment. Surveillance cystoscopy in 3 months. Endorses mild flank pain. I visualized efflux bilaterally but will obtain renal US to rule out hydronephrosis. Kannan Jarvis MD UNIVERSAL PROTOCOL / SAFETY CHECKLIST Procedure to be Performed: cystoscopy Sign In: A Moment of CARE was completed. Personnel directly involved with the procedure wore the appropriate PPE (Personal Protective Equipment). Patient/Surrogate Stated/Verified: PATIENT VERIFIED(optional for EMERGENT procedures): Patient name, Date of , Relevant allergies, and The intended procedure Time Out Communication: Intended patient and procedure match the source documents. Consent documented and matches the intended procedure. Relevant labs, photos, and/or imaging studies have been reviewed. No correct side/site applicable for marking and visibility. Medications required for procedure verified. Fire risk assessed and interventions discussed. No implant(s) inserted. Sign Out: SIGN OUT (optional for EMERGENT procedures): All specimen containers correctly labeled. All instruments, equipment, possible retained foreign bodies accounted for. Post-procedure follow-up management communicated and Plan of Care Visit completed when applicable. Jaron Taylor RN documented in this encounter [facility] 11-15-2023 Note HNO ID: [id number] Author: JARON TAYLOR RN Service: ? Author Type: Registered Nurse Type: Progress Notes Filed: 11/15/2023 13:53 Note Text: UNIVERSAL PROTOCOL / SAFETY CHECKLIST Procedure to be Performed: cystoscopy Sign In: A Moment of CARE was completed. Personnel directly involved with the procedure wore the appropriate PPE (Personal Protective Equipment). Patient/Surrogate Stated/Verified: PATIENT VERIFIED(optional for EMERGENT procedures): Patient name, Date of , Relevant allergies, and The intended procedure Time Out Communication: Intended patient and procedure match the source documents. Consent documented and matches the intended procedure. Relevant labs, photos, and/or imaging studies have been reviewed. No correct side/site applicable for marking and visibility. Medications required for procedure verified. Fire risk assessed and interventions discussed. No implant(s) inserted. Sign Out: SIGN OUT (optional for EMERGENT procedures): All specimen containers correctly labeled. All instruments, equipment, possible retained foreign bodies accounted for. Post-procedure follow-up management communicated and Plan of Care Visit completed when applicable. Jaron Taylor RN [facility] 11-15-2023 Nurse Note Actual procedure/procedure scheduled: Yes Performing provider/scheduled provider: Yes Patient was roomed in: Q9- 05 Beauty Artist offered:Patient declines Patient arrived in the room at: 1303 Patient ready for procedure: 1315 The procedure started at ( Time Only): 1353 The procedure ended at: 1355 Was the procedure delayed: Yes: Provider late: Provider off unit The patient left the procedure room at: 1405 Jaron Taylor RN PRE PROCEDURE ASSESSMENT- Cysto Procedure Indication: Cystoscopy Latex Allergy: No Allergies reviewed and updated. Yes Heart valve replacement: No Joint replacement: No Back Office UA otained: yes PROCEDURE PREP-Cysto Patient ID with two(2)identifiers verified by: Jaron Taylor RN Pre-Procedure Antibiotics: None taken at home nor prior to procedure Patient Prep: Betadine Scrub to perineum and placement of Sterile Drape. COMPLETED Anesthetic Given:10 cc 2% Lidocaine jelly Jaron Taylor RN UNIVERSAL PROTOCOL / SAFETY CHECKLIST Procedure to be performed: Cystoscopy Sign in Communication: Completed Time Out: Team Confirms the Correct Patient, Correct Procedure, Correct Site and Site Marking, Correct Position (if applicable). Sign Out Discussion: Completed Jaron Taylor RN POST PROCEDURE NURSE ASSESSMENT Present along with physician during procedure exam. Jaron Taylor RN Instruction sheet given and reviewed and patient verbalizes understanding: yes Post Procedure Antibiotic: As Prescribed Current pain intensity is 0 on a 0-10 pain scale. Jaron Taylor RN AMBULATORY PATIENT EDUCATION THE FOLLOWING WAS EVALUATED Motivation To Learn: Interested Family/Significant Other Support: High - Very involved in pt care Cognitive Ability: Alert/Oriented Method of Instruction: Individual instruction Written instruction/Handouts Verbal instruction The Following Influencing Factors Were Barriers To This Education Session: None The Following Physical Limitations Were Barriers To This Education Session: None Instruction Provided To: Patient Logistics Specialist Present: not applicable Discipline: Nursing Learning Topic: SURVIVAL SKILLS: Complication Prevention Symptom Management Patient Evaluation: Verbalizes understanding: Yes Supplemental Material Given: Written Material Instructed By Jaron Taylor RN In Department Urology . [facility] 11-15-2023 Nurse Note Actual procedure/procedure scheduled: Yes Performing provider/scheduled provider: Yes Patient was roomed in: Q9- 05 Beauty Artist offered:Patient declines Patient arrived in the room at: 1303 Patient ready for procedure: 1315 The procedure started at ( Time Only): 1353 The procedure ended at: 1355 Was the procedure delayed: Yes: Provider late: Provider off unit The patient left the procedure room at: 1405 Jaron Taylor RN PRE PROCEDURE ASSESSMENT- Cysto Procedure Indication: Cystoscopy Latex Allergy: No Allergies reviewed and updated. Yes Heart valve replacement: No Joint replacement: No Back Office UA otained: yes PROCEDURE PREP-Cysto Patient ID with two(2)identifiers verified by: Jaron Taylor RN Pre-Procedure Antibiotics: None taken at home nor prior to procedure Patient Prep: Betadine Scrub to perineum and placement of Sterile Drape. COMPLETED Anesthetic Given:10 cc 2% Lidocaine jelly Jaron Taylor RN UNIVERSAL PROTOCOL / SAFETY CHECKLIST Procedure to be performed: Cystoscopy Sign in Communication: Completed Time Out: Team Confirms the Correct Patient, Correct Procedure, Correct Site and Site Marking, Correct Position (if applicable). Sign Out Discussion: Completed Jaron Taylor RN POST PROCEDURE NURSE ASSESSMENT Present along with physician during procedure exam. Jaron Taylor RN Instruction sheet given and reviewed and patient verbalizes understanding: yes Post Procedure Antibiotic: As Prescribed Current pain intensity is 0 on a 0-10 pain scale. Jaron Taylor RN AMBULATORY PATIENT EDUCATION THE FOLLOWING WAS EVALUATED Motivation To Learn: Interested Family/Significant Other Support: High - Very involved in pt care Cognitive Ability: Alert/Oriented Method of Instruction: Individual instruction Written instruction/Handouts Verbal instruction The Following Influencing Factors Were Barriers To This Education Session: None The Following Physical Limitations Were Barriers To This Education Session: None Instruction Provided To: Patient Logistics Specialist Present: not applicable Discipline: Nursing Learning Topic: SURVIVAL SKILLS: Complication Prevention Symptom Management Patient Evaluation: Verbalizes understanding: Yes Supplemental Material Given: Written Material Instructed By Jaron Taylor RN In Department Urology . documented in this encounter [facility] 09-12-2023 Telephone encounter Note Pt is reporting pain and burning for about 3 days after BCG treatments, requesting something for the pain. Please review and sign pended Percocet script per your request. Thank you, Joanne Gay RN [facility] 09-12-2023 Miscellaneous Notes Pt is reporting pain and burning for about 3 days after BCG treatments, requesting something for the pain. Please review and sign pended Percocet script per your request. Thank you, Joanne Gay RN documented in this encounter [facility] 09-12-2023 Note HNO ID: [id number] Author: ALISON LIGHT RN Service: ? Author Type: Registered Nurse Type: Progress Notes Filed: 09/12/2023 16:04 Note Text: 1320 16 Fr. Blue coudet cath inserted with resistance following lidojet. Sl hematuria noted at first drain but urine cleared. 1350 erickson clamped and bcg instilled. at bedside and will keep timer for pt to turn every 15 min. 1550 erickson unclamped and allowed to drain. 1555 200+cc camron urine in bag. Erickson dc'd. Pt encouraged to drink water. Aware that RX for pain medication was sent to local pharmacy by [facility] 09-12-2023 History of Presen t illness Narrative 1320 16 Fr. Blue coudet cath inserted with resistance following lidojet. Sl hematuria noted at first drain but urine cleared. 1350 erickson clamped and bcg instilled. at bedside and will keep timer for pt to turn every 15 min. 1550 erickson unclamped and allowed to drain. 1555 200+cc camron urine in bag. Erickson dc'd. Pt encouraged to drink water. Aware that RX for pain medication was sent to local pharmacy by documented in this encounter [facility] 09-05-2023 Note HNO ID: [id number] Author: ALISON LIGHT RN Service: ? Author Type: Registered Nurse Type: Progress Notes Filed: 09/05/2023 16:24 Note Text: 1320 16 Fr coudet catheter inserted following lidojet with some difficulty d/t obstruction. Erickson finally able to advance and draining clear yellow urine. 1358 erickson clamped; BCG instilled. Will set phone timer to turn every 15 min. at bedside. 1503 pt turning self. Tolerating treatment well. No complaints. 1600 erickson unclamped and allowed to drain. 1608 Erickson dc'd. Small amount of bleeding from urethra. No blood in urine. 300cc clear yellow urine in bag. 1620 pt dc'd/ states there is still some bleeding after getting dressed. Encouraged pt to take in po fluids and that there could be a small amount of trauma d/t the resistance that was met while inserting the catheter. Instructed pt to call physician tomorrow if there is concern with hematuria. [facility] 09-05-2023 History of Presen t illness Narrative 1320 16 Fr coudet catheter inserted following lidojet with some difficulty d/t obstruction. Erickson finally able to advance and draining clear yellow urine. 1358 erickson clamped; BCG instilled. Will set phone timer to turn every 15 min. at bedside. 1503 pt turning self. Tolerating treatment well. No complaints. 1600 erickson unclamped and allowed to drain. 1608 Erickson dc'd. Small amount of bleeding from urethra. No blood in urine. 300cc clear yellow urine in bag. 1620 pt dc'd/ states there is still some bleeding after getting dressed. Encouraged pt to take in po fluids and that there could be a small amount of trauma d/t the resistance that was met while inserting the catheter. Instructed pt to call physician tomorrow if there is concern with hematuria. documented in this encounter [facility] 08-29-2023 Note HNO ID: [id number] Author: ALISON LIGHT RN Service: ? Author Type: Registered Nurse Type: Progress Notes Filed: 08/29/2023 16:12 Note Text: 1315 Lidojet instilled followed by 16Fr coudet catheter. First attempt with catheter, the catheter would not advance d/t the patient's anatomy. Catheter removed and attempted again with a different kind of 16fr coudet catheter. Second attempt successful. Erickson draining clear yellow urine. 1400 erickson clamped. 50cc urine in bag. BCG instilled. Pt will turn self every 15 min. at bedside with timer. 1505 turning self. Tolerating treatment ok. States it does hurt at the urinary meatus. Offerred some lidocaine jelly but pt declined. 1600 Erickson unclamped and bladder allowed to drain. 1605 200cc clear yellow urine in drainage bag. Erickson dc'd. Tolerated treatment well. Will return next week for next dose. [facility] 08-29-2023 History of Presen t illness Narrative 1315 Lidojet instilled followed by 16Fr coudet catheter. First attempt with catheter, the catheter would not advance d/t the patient's anatomy. Catheter removed and attempted again with a different kind of 16fr coudet catheter. Second attempt successful. Erickson draining clear yellow urine. 1400 erickson clamped. 50cc urine in bag. BCG instilled. Pt will turn self every 15 min. at bedside with timer. 1505 turning self. Tolerating treatment ok. States it does hurt at the urinary meatus. Offerred some lidocaine jelly but pt declined. 1600 Erickson unclamped and bladder allowed to drain. 1605 200cc clear yellow urine in drainage bag. Erickson dc'd. Tolerated treatment well. Will return next week for next dose. documented in this encounter [facility] 08-02-2023 Note HNO ID: [id number] Author: NATALIA ROQUE RN Service: ? Author Type: Registered Nurse Type: Progress Notes Filed: 08/02/2023 13:58 Note Text: UNIVERSAL PROTOCOL / SAFETY CHECKLIST Procedure to be Performed: cystoscopy Sign In: A Moment of CARE was completed. Personnel directly involved with the procedure wore the appropriate PPE (Personal Protective Equipment). Patient/Surrogate Stated/Verified: PATIENT VERIFIED(optional for EMERGENT procedures): Patient name, Date of , Relevant allergies, and The intended procedure Time Out Communication: Intended patient and procedure match the source documents. Consent documented and matches the intended procedure. Relevant labs, photos, and/or imaging studies have been reviewed. Medications required for procedure verified. Fire risk assessed and interventions discussed. Sign Out: SIGN OUT (optional for EMERGENT procedures): All specimen containers correctly labeled. All instruments, equipment, possible retained foreign bodies accounted for. Post-procedure follow-up management communicated and Plan of Care Visit completed when applicable. Natalia Roque RN [facility] 08-02-2023 History of Presen t illness Narrative UNIVERSAL PROTOCOL / SAFETY CHECKLIST Procedure to be Performed: cystoscopy Sign In: A Moment of CARE was completed. Personnel directly involved with the procedure wore the appropriate PPE (Personal Protective Equipment). Patient/Surrogate Stated/Verified: PATIENT VERIFIED(optional for EMERGENT procedures): Patient name, Date of , Relevant allergies, and The intended procedure Time Out Communication: Intended patient and procedure match the source documents. Consent documented and matches the intended procedure. Relevant labs, photos, and/or imaging studies have been reviewed. Medications required for procedure verified. Fire risk assessed and interventions discussed. Sign Out: SIGN OUT (optional for EMERGENT procedures): All specimen containers correctly labeled. All instruments, equipment, possible retained foreign bodies accounted for. Post-procedure follow-up management communicated and Plan of Care Visit completed when applicable. Natalia Roque RN [place] [id number] AMBULATORY PROCEDURE NOTE NAME: Noel Loera AGE: [age] year old CLINIC #: [id number] DATE: August 02, 2023 SURGEON: Kannan Jarvis MD PROCEDURE: Cystoscopy ANESTHESIA: Lidocaine gel per urethra DIAGNOSIS: Bladder cancer INDICATION: Surveillance FINDINGS: Tumor present: No Urethra: Normal Prostate: Moderate lateral lobes Verumontanum: Open Urine cytology: Voided PROCEDURE: After informed consent was obtained, the patient was taken to the endoscopy suite. A time out was performed where the patient and the procedure were identified in the presence of the Nursing and Surgical Staff. Patient was placed in supine position, prepped and draped in the standard sterile fashion. Lidocaine gel was placed per urethra for local anesthesia. Cystoscopy was then performed using a 17 F flexible cystoscope. Sterile technique was maintained throughout. Please refer to above for specific findings during this part of the procedure. After carefully and atraumatically inspecting the urethra, prostate, and bladder, the bladder was emptied and the cystoscope was removed. The patient tolerated the procedure well and there were no complications. 08/02/23 Cysto: RANDY; cytology: pending 05/28/23 BCG x 3 completed 05/07/23 Cysto: RANDY; cytology: pending 01/29/23 Cysto: RANDY; cytology: negative 12/19/22 BCG x 6 complete I took over care here 10/10/22 Stent removal - over 5 small tumors which were fulgurated 08/30/2022 TURBT - cTaHG urothelial carcinoma, MP present and uninvolved (OSH pathology). Stent placed. 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 Unable to place stents. 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 ASSESSMENT/PLAN: Continue maintenance BCG at [place] and surveillance cystoscopy in 3 months. By signing my name below, I, Chip Lizama, attest that this documentation has been prepared under the direction and in the presence of Dr. Jarvis Electronically signed, Chip Lizama Scribe STAFF PHYSICIAN NOTE OF PERSONAL INVOLVEMENT IN CARE The above noted history, physical, assessment and plan were reviewed with the provider and critical portions of the H&P were confirmed. I evaluated and examined the patient and agree with the plan above and provided direct supervision of the above provider during this patient's care. Kannan Jarvis MD documented in this encounter [facility] 08-02-2023 Note HNO ID: [id number] Author: KANNAN JARVIS MD Service: ? Author Type: Physician Type: Progress Notes Filed: 08/03/2023 07:39 Note Text: [place] [id number] AMBULATORY PROCEDURE NOTE NAME: Noel Loera AGE: [age] year old CLINIC #: [id number] DATE: August 02, 2023 SURGEON: Kannan Jarvis MD PROCEDURE: Cystoscopy ANESTHESIA: Lidocaine gel per urethra DIAGNOSIS: Bladder cancer INDICATION: Surveillance FINDINGS: Tumor present: No Urethra: Normal Prostate: Moderate lateral lobes Verumontanum: Open Urine cytology: Voided PROCEDURE: After informed consent was obtained, the patient was taken to the endoscopy suite. A time out was performed where the patient and the procedure were identified in the presence of the Nursing and Surgical Staff. Patient was placed in supine position, prepped and draped in the standard sterile fashion. Lidocaine gel was placed per urethra for local anesthesia. Cystoscopy was then performed using a 17 F flexible cystoscope. Sterile technique was maintained throughout. Please refer to above for specific findings during this part of the procedure. After carefully and atraumatically inspecting the urethra, prostate, and bladder, the bladder was emptied and the cystoscope was removed. The patient tolerated the procedure well and there were no complications. 08/02/23 Cysto: RANDY; cytology: pending 05/28/23 BCG x 3 completed 05/07/23 Cysto: RANDY; cytology: pending 01/29/23 Cysto: RANDY; cytology: negative 12/19/22 BCG x 6 complete I took over care here 10/10/22 Stent removal - over 5 small tumors which were fulgurated 08/30/2022 TURBT - cTaHG urothelial carcinoma, MP present and uninvolved (OSH pathology). Stent placed. 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 Unable to place stents. 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 ASSESSMENT/PLAN: Continue maintenance BCG at [place] and surveillance cystoscopy in 3 months. By signing my name below, I, Chip Lizama, attest that this documentation has been prepared under the direction and in the presence of Dr. Jarvis Electronically signed, Cihp Lizama Scribe STAFF PHYSICIAN NOTE OF PERSONAL INVOLVEMENT IN CARE The above noted history, physical, assessment and plan were reviewed with the provider and critical portions of the HANDP were confirmed. I evaluated and examined the patient and agree with the plan above and provided direct supervision of the above provider during this patient's care. Kannan Jarvis MD [facility] 08-02-2023 Nurse Note Actual procedure/procedure scheduled: Yes Performing provider/scheduled provider: Yes Patient was roomed in: Q9- 06 Beauty Artist offered:Patient declines Patient arrived in the room at: 1320 Patient ready for procedure: 1333 The procedure started at ( Time Only): 1349 The procedure ended at: 1351 Was the procedure delayed: Yes: Provider late: Provider with other patient on Q9 The patient left the procedure room at: 1400 Natalia Roque RN PRE PROCEDURE ASSESSMENT- Cysto Procedure Indication: Cystoscopy Latex Allergy: No Allergies reviewed and updated. Yes Pre-Procedure Vital Signs: BP: 146/86 Pulse: 72 Heart valve replacement: No Joint replacement: No Back Office UA otained: yes PROCEDURE PREP-Cysto Patient ID with two(2)identifiers verified by: Natalia Roque RN Pre-Procedure Antibiotics: None taken at home nor prior to procedure Patient Prep: Betadine Scrub to perineum and placement of Sterile Drape. COMPLETED Anesthetic Given:10 cc 2% Lidocaine jelly Natalia Roque RN UNIVERSAL PROTOCOL / SAFETY CHECKLIST Procedure to be performed: Cystoscopy Sign in Communication: Completed Time Out: Team Confirms the Correct Patient, Correct Procedure, Correct Site and Site Marking, Correct Position (if applicable). Sign Out Discussion: Completed Natalia Roque RN POST PROCEDURE NURSE ASSESSMENT Present along with physician during procedure exam. Natalia Roque RN Instruction sheet given and reviewed and patient verbalizes understanding: yes Current pain intensity is 0 on a 0-10 pain scale. Natalia Roque RN AMBULATORY PATIENT EDUCATION THE FOLLOWING WAS EVALUATED Motivation To Learn: Eager Family/Significant Other Support: None - Unavailable/disinterested Cognitive Ability: Alert/Oriented Method of Instruction: Individual instruction Written instruction - handouts Verbal instruction The Following Influencing Factors Were Barriers To This Education Session: None The Following Physical Limitations Were Barriers To This Education Session: None Instruction Provided To: Patient Logistics Specialist Present: not applicable Discipline: Nursing Learning Topic: SURVIVAL SKILLS: post care Patient Evaluation: Verbalizes understanding: Yes Supplemental Material Given: Written Material Instructed By Natalia Roque RN In Department Urology . T [facility] 08-02-2023 Nurse Note Actual procedure/procedure scheduled: Yes Performing provider/scheduled provider: Yes Patient was roomed in: Q9- 06 Beauty Artist offered:Patient declines Patient arrived in the room at: 1320 Patient ready for procedure: 1333 The procedure started at ( Time Only): 1349 The procedure ended at: 1351 Was the procedure delayed: Yes: Provider late: Provider with other patient on Q9 The patient left the procedure room at: 1400 Natalia Roque RN PRE PROCEDURE ASSESSMENT- Cysto Procedure Indication: Cystoscopy Latex Allergy: No Allergies reviewed and updated. Yes Pre-Procedure Vital Signs: BP: 146/86 Pulse: 72 Heart valve replacement: No Joint replacement: No Back Office UA otained: yes PROCEDURE PREP-Cysto Patient ID with two(2)identifiers verified by: Natalia Roque RN Pre-Procedure Antibiotics: None taken at home nor prior to procedure Patient Prep: Betadine Scrub to perineum and placement of Sterile Drape. COMPLETED Anesthetic Given:10 cc 2% Lidocaine jelly Natalia Roque RN UNIVERSAL PROTOCOL / SAFETY CHECKLIST Procedure to be performed: Cystoscopy Sign in Communication: Completed Time Out: Team Confirms the Correct Patient, Correct Procedure, Correct Site and Site Marking, Correct Position (if applicable). Sign Out Discussion: Completed Natalia Roque RN POST PROCEDURE NURSE ASSESSMENT Present along with physician during procedure exam. Natalia Roque RN Instruction sheet given and reviewed and patient verbalizes understanding: yes Current pain intensity is 0 on a 0-10 pain scale. Natalia Roque RN AMBULATORY PATIENT EDUCATION THE FOLLOWING WAS EVALUATED Motivation To Learn: Eager Family/Significant Other Support: None - Unavailable/disinterested Cognitive Ability: Alert/Oriented Method of Instruction: Individual instruction Written instruction - handouts Verbal instruction The Following Influencing Factors Were Barriers To This Education Session: None The Following Physical Limitations Were Barriers To This Education Session: None Instruction Provided To: Patient Logistics Specialist Present: not applicable Discipline: Nursing Learning Topic: SURVIVAL SKILLS: post care Patient Evaluation: Verbalizes understanding: Yes Supplemental Material Given: Written Material Instructed By Natalia Roque RN In Department Urology . documented in this encounter [facility] 06-26-2023 Miscellaneous Notes Refill request, contract signed and appointments up to date. documented in this encounter [facility] 06-26-2023 Telephone encounter Note Refill request, contract signed and appointments up to date. [facility] 05-28-2023 Note HNO ID: [id number] Author: ALISON LIGHT RN Service: ? Author Type: Registered Nurse Type: Progress Notes Filed: 05/28/2023 16:50 Note Text: 1320. Lido jet instilled followed by 16Fr coudet catheter without difficulty. Erickson draining clear yellow urine. 1325 150cc urine in drainage bag. Bag clamped. BCG instilled. Pt will turn self every 15 min. at bedside with timer on phone. 1533 catheter unclamped and allowed to drain. 1545 Erickson dc'd. Tolerated treatment without difficulty. [facility] 05-28-2023 History of Presen t illness Narrative 1320. Lido jet instilled followed by 16Fr coudet catheter without difficulty. Erickson draining clear yellow urine. 1325 150cc urine in drainage bag. Bag clamped. BCG instilled. Pt will turn self every 15 min. at bedside with timer on phone. 1533 catheter unclamped and allowed to drain. 1545 Erickson dc'd. Tolerated treatment without difficulty. documented in this encounter [facility] 05-21-2023 History of Presen t illness Narrative Images from the original note were not included. Chief Complaint: Infected sebaceous cyst History of Present Illness: Noel Loera is a 77 y.o. male presents to the office with an infected sebaceous cyst. He had a cyst located on his left posterior chest wall that was dime-sized, he 1st noticed it 2 years ago. Around [place] time, he began to notice pain, swelling and redness in the area. He contacted Dr. Sterling's office who prescribed him antibiotics. The antibiotics did not help much. He almost went to the ER 3 days ago due to the pain. He bumped the area yesterday and noted some drainage. Interval update 05/21/2023 Patient is here today for follow-up status post I&D of infected sebaceous cyst. Overall, he is doing well. He notes post procedural pain at the I&D site. He denies any fevers or chills. His pack the wound as instructed. He states that the wound is now completely healed and has scabbed over. HPI Review of Systems Constitutional: Negative for fever and chills. Respiratory: Negative for shortness of breath. Cardiovascular: Negative for chest pain and palpitations. Gastrointestinal: Negative for nausea, vomiting and abdominal pain. Genitourinary: Negative for dysuria and difficulty urinating. Skin: Negative for rash. Left posterior chest wall scab Allergic/Immunologic: Negative for immunocompromised state. Neurological: Negative for weakness and light-headedness. Hematological: Does not bruise/bleed easily. Psychiatric/Behavioral: Negative for behavioral problems and confusion. Past Medical History: Diagnosis Date Anxiety Arthritis 2018 Bladder cancer ([facility]) 01/2022 being treated at [facility], in remission currently as of 04/16/2023 Chest pain Depression April 2022 GERD (gastroesophageal reflux disease) Hyperlipidemia 1985 Hypertension 2018 Prostate cancer ([facility]) Visual impairment 1970 Past Surgical History: Procedure Laterality Date COLONOSCOPY 2009 Dr. Rosales COLONOSCOPY N/A 03/30/2019 Performed by Vinay Warner MD at [facility] ESOPHAGOGASTRODUODENOSCOPY HERNIA REPAIR INGUINAL HERNIA REPAIR 1994 LAPAROSCOPIC CHOLECYSTECTOMY N/A 10/14/2017 Performed by Shamika Keating MD at [facility] OTHER SURGICAL HISTORY sebaceous cyst removal PROSTATE SURGERY 2015 [facility] PROSTATECTOMY REPAIR HERNIA INCISIONAL VENTRAL N/A 05/27/2019 Performed by Vinay Warner MD at [facility] VASECTOMY 1994 No Known Allergies Current Outpatient Medications: ALPRAZolam (XANAX) 0.5 mg tablet, take 1 tablet by mouth every morning and then take 1 tablet every evening if needed for anxiety Strength: 0.5 mg, Disp: 60 tablet, Rfl: 0 lidocaine (URO-JET) 2 % jelly in applicator, 11 mL by other route., Disp: , Rfl: lisinopriL (PRINIVIL,ZESTRIL) 40 mg tablet, take 1 tablet by mouth once daily, Disp: 90 tablet, Rfl: 1 simvastatin (ZOCOR) 40 mg tablet, take 1 tablet by mouth every morning, Disp: 90 tablet, Rfl: 0 omeprazole (PriLOSEC) 20 mg capsule, take 1 capsule by mouth every morning, Disp: 90 capsule, Rfl: 3 Social History Socioeconomic History Marital status: Spouse name: Not on file Number of children: Not on file Years of education: Not on file Highest education level: Doctorate Occupational History Not on file Tobacco Use Smoking status: Former Packs/day: 0.25 Years: 12.00 Additional pack years: 0.00 Total pack years: 3.00 Types: Cigarettes, Cigars Smokeless tobacco: Never Vaping Use Vaping Use: Never used Substance and Sexual Activity Alcohol use: Yes Alcohol/week: 5.0 standard drinks of alcohol Comment: 5-6 weekly Drug use: Never Sexual activity: Not Currently Partners: Female control/protection: Surgical Other Topics Concern Not on file Social History Narrative Not on file Social Determinants of Health Financial Resource Strain: Low Risk (04/10/2020) Overall Financial Resource Strain (CARDIA) Difficulty of Paying Living Expenses: Not hard at all Food Insecurity: No Food Insecurity (05/21/2023) Hunger Screening Food Insecurity - Worry: Never True Food Insecurity - Inability: Never True Transportation Needs: No Transportation Needs (01/01/2023) PRAPARE - Transportation Lack of Transportation (Medical): No Lack of Transportation (Non-Medical): No Physical Activity: Sufficiently Active (04/10/2020) Exercise Vital Sign Days of Exercise per Week: 5 days Minutes of Exercise per Session: 30 min Stress: No Stress Concern Present (04/10/2020) [employer] - Occupational Stress Questionnaire Feeling of Stress : Only a little Social Connections: Unknown (04/10/2020) Social Connection and Isolation Panel [NHANES] Frequency of Communication with Friends and Family: Patient declined Frequency of Social Gatherings with Friends and Family: Patient declined Attends Temple Services: Patient declined Active Member of Clubs or Organizations: Yes Attends Club or Organization Meetings: Patient declined Marital Status: Interpersonal Safety: Not At Risk (04/10/2020) Humiliation, Afraid, Rape, and Kick questionnaire Fear of Current or Ex-Partner: No Emotionally Abused: No Physically Abused: No Sexually Abused: No Housing Instability: Low Risk (01/04/2023) Housing Instability Housing Instability: No Family History Problem Relation Age of Onset No Known Problems Mother Coronary artery disease Father Heart disease Father Early Father Parkinsonism Father Cancer Brother Cancer Brother Physical Exam Vitals reviewed. Constitutional: Appearance: Normal appearance. HENT: Head: Normocephalic and atraumatic. Eyes: Pupils: Pupils are equal, round, and reactive to light. Cardiovascular: Rate and Rhythm: Normal rate. Pulmonary: Effort: Pulmonary effort is normal. Abdominal: General: There is no distension. Palpations: Abdomen is soft. Tenderness: There is no abdominal tenderness. Musculoskeletal: General: No swelling. Skin: General: Skin is warm and dry. Comments: Left posterior chest wall I&D site now scabbed over. I am unable to feel a cyst Neurological: Mental Status: He is alert and oriented to person, place, and time. Mental status is at baseline. Psychiatric: Mood and Affect: Mood normal. Behavior: Behavior normal. Vital Signs: Blood pressure 147/78, pulse 65, height 180.3 cm (5' 11 ), weight 81.9 kg (180 lb 9.6 oz). Respiratory Source: No data recorded Admission Weight: Weight: 81.9 kg (180 lb 9.6 oz) Labs: Lab Results Component Value Date WBC 5.4 01/08/2023 HGB 13.0 01/08/2023 HCT 38.8 (L) 01/08/2023 MCV 91 01/08/2023 PLT 362 01/08/2023 Lab Results Component Value Date GLU 94 01/15/2023 CALCIUM 9.5 01/15/2023 K 4.6 01/15/2023 CO2 28 01/15/2023 CL 104 01/15/2023 BUN 23 01/15/2023 CREATININE 1.15 01/15/2023 No results found for: AMYLASE Lab Results Component Value Date LIPASE 25 01/09/2021 Lab Results Component Value Date ALT 32 01/02/2023 AST 26 01/02/2023 ALKPHOS 102 01/02/2023 Lab Results Component Value Date INR 1.0 04/20/2022 INR 1.1 02/16/2019 INR 1.1 10/06/2017 PROTIME 11.6 04/20/2022 PROTIME 12.4 02/16/2019 PROTIME 12.4 10/06/2017 Assessment: Noel Loera is a 77 y.o.male with left back infected epidermoid cyst status post I&D. Infected epidermoid cyst [L72.0, L08.9] Plan: I&D site has healed well. We discussed excision of I&D site to prevent recurrence of a cyst versus watchful waiting. Patient is undergoing treatment for his bladder cancer, it is a priority at this time. We discussed that he can watch the site and if a cyst recurs he can return for cyst excision. At the end of the visit, he states that he is due for colonoscopy due to history of tubular adenoma. He will return to the office whenever he would like to proceed. Evaluation included: Preparing to see the patient (e.g., review of tests) Obtaining and/or reviewing separately obtained history Performing a medically appropriate examination and/or evaluation Counseling and educating the patient/family/caregiver Referring and communicating with other health daycare manager Donato Krishnan MD [facility] [place] documented in this encounter [facility] 05-21-2023 Miscellaneous Notes Refill request documented in this encounter [facility] 05-21-2023 Telephone encounter Note Refill request [facility] 05-21-2023 Miscellaneous Notes Pt in [place] today to start next cycle of bcg instillations. He requests a refill of oxybutin. I have pended the script to be filled at [facility] in [place]. T[place] documented in this encounter [facility] 05-21-2023 Note HNO ID: [id number] Author: ALISON LIGHT RN Service: ? Author Type: Registered Nurse Type: Progress Notes Filed: 05/21/2023 11:58 Note Text: Upon assessment pt states that for 48 hours after last treatment he had severe pain with urination, frequency, and urgency. Urine was camron in color. states he drank alcohol and coffee. Pt states all symptoms have resolved for last 5 days. Encouraged po fluids today after treatment ie water. Pt voices understanding. 0850 16Fr coude inserted after lidojet. Urine draining clear yellow. 0911 100cc urine in drainage bag. erickson clamped; BCG instilled. set alarm at bedside for pt to turn every 15 min. 1000 tolerating treatment well. Turning self. a bedside. 1111 Erickson unclamped and bladder allowed to drain. 1121 300cc total urine in bag. Erickson dc'd. [facility] 05-21-2023 History of Presen t illness Narrative Upon assessment pt states that for 48 hours after last treatment he had severe pain with urination, frequency, and urgency. Urine was camron in color. states he drank alcohol and coffee. Pt states all symptoms have resolved for last 5 days. Encouraged po fluids today after treatment ie water. Pt voices understanding. 0850 16Fr coude inserted after lidojet. Urine draining clear yellow. 0911 100cc urine in drainage bag. erickson clamped; BCG instilled. set alarm at bedside for pt to turn every 15 min. 1000 tolerating treatment well. Turning self. a bedside. 1111 Erickson unclamped and bladder allowed to drain. 1121 300cc total urine in bag. Erickson dc'd. documented in this encounter [facility] 05-14-2023 Note HNO ID: [id number] Author: DELVIS SEGURA RN Service: ? Author Type: Registered Nurse Type: Progress Notes Filed: 05/14/2023 16:39 Note Text: Took [address] erickson catheter. Able to insert 16fr coude erickson cath as ordered per protocol, positional, 100 ml clear yellow urine noted in collection bag. Patient has tolerated well. Delvis Segura RN [facility] 05-14-2023 History of Presen t illness Narrative Took [address] erickson catheter. Able to insert 16fr coude erickson cath as ordered per protocol, positional, 100 ml clear yellow urine noted in collection bag. Patient has tolerated well. Delvis Segura RN documented in this encounter [facility] 05-09-2023 Miscellaneous Notes Patient has been scheduled for 05/14, 05/21, and 05/28 and has been notified. Thank you! Jeremiah Chavez Call placed to patient, no answer. Left detailed message to call back to schedule appointment. For Scheduling when patient calls back: We can do Saturday 830 or Saturday at 1pm or at 1pm ----- Message ----- From: Ismael Stubbs MD Sent: 05/08/2023 4:30 PM EST To: Kannan Jarvis MD; [facility]; * La Kannan - We will get him in and scheduled. Thanks - Francis. 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 He was the one where the [facility] team had difficulty catheterizing and so I placed an indwelling catheter for 6 weeks for his treatments. I scoped him today and no stricture or false passage so I think your team should be able to get catheter in for treatment if you'd be able to get him scheduled for 3 weekly treatments next month. I'll see him back in 3 months for his next scope. Thanks! Kannan documented in this encounter [facility] 05-07-2023 Miscellaneous Notes Refill request documented in this encounter [facility] 05-07-2023 Telephone encounter Note Refill request [facility] 05-02-2023 History of Presen t illness Narrative Subjective Patient ID: Noel Loera is a 77 y.o. male. About 20 years ago he had an episode of vertigo that responded to physical therapy maneuvers. He has had no vertigo since. 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 Saturday night he felt dizzy and off-balance. Nothing seemed to provoke that sensation. He was able to participate in a meeting and then he had assistance in going down some stairs and to his vehicle. He was able to drive himself home but he went slowly. Yesterday his symptoms seemed quite a bit better but he was not back to normal. Today his vertigo feeling is worse and associated with nausea. He denies any headache. No lateralizing symptoms in the extremities. He notes his vision flickers a little bit. No double vision. No acute change in his hearing. He has a history of bladder cancer and prostate cancer which are in remission. The following portions of the patient's history were reviewed and updated as appropriate: allergies, current medications, past medical history, past social history, and problem list. Review of Systems Objective Physical Exam Constitutional: Comments: He is uncomfortable and nauseated. He holds his head still. Blood pressure reasonable. HENT: Right Ear: Tympanic membrane and ear canal normal. Left Ear: Tympanic membrane and ear canal normal. Eyes: Pupils: Pupils are equal, round, and reactive to light. Comments: He has no nystagmus with straight on gaze. No nystagmus with looking to the left but he has horizontal nystagmus when he looks to the right. Neck: Vascular: No carotid bruit. Cardiovascular: Rate and Rhythm: Normal rate and regular rhythm. Pulmonary: Effort: Pulmonary effort is normal. Neurological: Comments: He is unsteady on his feet. He wobbles but does not break stance with Romberg testing. No extremity weakness or ataxia. Assessment/Plan Will check his brain with CT to be sure there is no evidence of central pathology. If that is negative will manage this conservatively with meclizine and anti emetics and monitoring of his course. Diagnoses and all orders for this visit: Vertigo - CT brain without contrast; Future [email or web address] History of Presen t illness Narrative Images from the original note were not included. Chief Complaint: Infected sebaceous cyst History of Present Illness: Noel Loera is a 77 y.o. male presents to the office with an infected sebaceous cyst. He had a cyst located on his left posterior chest wall that was dime-sized, he 1st noticed it 2 years ago. Around [place] time, he began to notice pain, swelling and redness in the area. He contacted Dr. Sterling's office who prescribed him antibiotics. The antibiotics did not help much. He almost went to the ER 3 days ago due to the pain. He bumped the area yesterday and noted some drainage. HPI Review of Systems Constitutional: Negative for fever and chills. Respiratory: Negative for shortness of breath. Cardiovascular: Negative for chest pain and palpitations. Gastrointestinal: Negative for nausea, vomiting and abdominal pain. Genitourinary: Negative for dysuria and difficulty urinating. Skin: Positive for wound. Negative for rash. Left posterior chest wall infected sebaceous cyst Allergic/Immunologic: Negative for immunocompromised state. Neurological: Negative for weakness and light-headedness. Hematological: Does not bruise/bleed easily. Psychiatric/Behavioral: Negative for behavioral problems and confusion. Past Medical History: Diagnosis Date Anxiety Arthritis 2018 Bladder cancer ([facility]) 01/2022 being treated at [facility], in remission currently as of 04/16/2023 Chest pain Depression April 2022 GERD (gastroesophageal reflux disease) Hyperlipidemia 1985 Hypertension 2018 Prostate cancer ([facility]) Visual impairment 1970 Past Surgical History: Procedure Laterality Date COLONOSCOPY 2009 Dr. Rosales COLONOSCOPY N/A 03/30/2019 Performed by Vinay Warner MD at [facility] ESOPHAGOGASTRODUODENOSCOPY HERNIA REPAIR INGUINAL HERNIA REPAIR 1994 LAPAROSCOPIC CHOLECYSTECTOMY N/A 10/14/2017 Performed by Shamika Keating MD at [facility] OTHER SURGICAL HISTORY sebaceous cyst removal PROSTATE SURGERY 2016 [facility] PROSTATECTOMY REPAIR HERNIA INCISIONAL VENTRAL N/A 05/27/2019 Performed by Vinay Warner MD at [facility] VASECTOMY 1994 No Known Allergies Current Outpatient Medications: ALPRAZolam (XANAX) 0.5 mg tablet, take 1 tablet by mouth every morning and then take 1 tablet every evening if needed for anxiety Strength: 0.5 mg, Disp: 60 tablet, Rfl: 0 lisinopriL (PRINIVIL,ZESTRIL) 40 mg tablet, take 1 tablet by mouth once daily, Disp: 90 tablet, Rfl: 1 omeprazole (PriLOSEC) 20 mg capsule, Take 1 capsule (20 mg total) by mouth in the morning., Disp: 90 capsule, Rfl: 3 simvastatin (ZOCOR) 40 mg tablet, Take 1 tablet (40 mg total) by mouth in the morning., Disp: 90 tablet, Rfl: 3 traMADoL (ULTRAM) 50 mg tablet, Take 1 tablet (50 mg total) by mouth every 6 (six) hours as needed for pain for up to 5 days., Disp: 20 tablet, Rfl: 0 Social History Socioeconomic History Marital status: Spouse name: Not on file Number of children: Not on file Years of education: Not on file Highest education level: Doctorate Occupational History Not on file Tobacco Use Smoking status: Former Packs/day: 0.25 Years: 12.00 Additional pack years: 0.00 Total pack years: 3.00 Types: Cigarettes, Cigars Smokeless tobacco: Never Vaping Use Vaping Use: Never used Substance and Sexual Activity Alcohol use: Yes Alcohol/week: 5.0 standard drinks of alcohol Comment: 5-6 weekly Drug use: Never Sexual activity: Not Currently Partners: Female control/protection: Surgical Other Topics Concern Not on file Social History Narrative Not on file Social Determinants of Health Financial Resource Strain: Low Risk (04/10/2020) Overall Financial Resource Strain (CARDIA) Difficulty of Paying Living Expenses: Not hard at all Food Insecurity: No Food Insecurity (04/16/2023) Hunger Screening Food Insecurity - Worry: Never True Food Insecurity - Inability: Never True Transportation Needs: No Transportation Needs (01/01/2023) PRAPARE - Transportation Lack of Transportation (Medical): No Lack of Transportation (Non-Medical): No Physical Activity: Sufficiently Active (04/10/2020) Exercise Vital Sign Days of Exercise per Week: 5 days Minutes of Exercise per Session: 30 min Stress: No Stress Concern Present (04/10/2020) [employer] - Occupational Stress Questionnaire Feeling of Stress : Only a little Social Connections: Unknown (04/10/2020) Social Connection and Isolation Panel [NHANES] Frequency of Communication with Friends and Family: Patient declined Frequency of Social Gatherings with Friends and Family: Patient declined Attends Temple Services: Patient declined Active Member of Clubs or Organizations: Yes Attends Club or Organization Meetings: Patient declined Marital Status: Interpersonal Safety: Not At Risk (04/10/2020) Humiliation, Afraid, Rape, and Kick questionnaire Fear of Current or Ex-Partner: No Emotionally Abused: No Physically Abused: No Sexually Abused: No Family History Problem Relation Age of Onset No Known Problems Mother Coronary artery disease Father Heart disease Father Early Father Parkinsonism Father Cancer Brother Cancer Brother Physical Exam Vitals reviewed. Constitutional: Appearance: Normal appearance. HENT: Head: Normocephalic and atraumatic. Eyes: Pupils: Pupils are equal, round, and reactive to light. Cardiovascular: Rate and Rhythm: Normal rate. Pulmonary: Effort: Pulmonary effort is normal. Abdominal: General: There is no distension. Palpations: Abdomen is soft. Tenderness: There is no abdominal tenderness. Musculoskeletal: General: No swelling. Skin: General: Skin is warm and dry. Comments: Left posterior chest wall abscess, purulent drainage noted, fluctuance, skin erythematous, small wound in the center. Incision and drainage performed in the office today. Neurological: Mental Status: He is alert and oriented to person, place, and time. Mental status is at baseline. Psychiatric: Mood and Affect: Mood normal. Behavior: Behavior normal. Vital Signs: Blood pressure (!) 176/96, pulse 69, height 180.3 cm (5' 11 ), weight 81.1 kg (178 lb 12.8 oz). Respiratory Source: No data recorded Admission Weight: Weight: 81.1 kg (178 lb 12.8 oz) Labs: Lab Results Component Value Date WBC 5.4 01/08/2023 HGB 13.0 01/08/2023 HCT 38.8 (L) 01/08/2023 MCV 91 01/08/2023 PLT 362 01/08/2023 Lab Results Component Value Date GLU 94 01/15/2023 CALCIUM 9.5 01/15/2023 K 4.6 01/15/2023 CO2 28 01/15/2023 CL 104 01/15/2023 BUN 23 01/15/2023 CREATININE 1.15 01/15/2023 No results found for: AMYLASE Lab Results Component Value Date LIPASE 25 01/09/2021 Lab Results Component Value Date ALT 32 01/02/2023 AST 26 01/02/2023 ALKPHOS 102 01/02/2023 Lab Results Component Value Date INR 1.0 04/20/2022 INR 1.1 02/16/2019 INR 1.1 10/06/2017 PROTIME 11.6 04/20/2022 PROTIME 12.4 02/16/2019 PROTIME 12.4 10/06/2017 In office procedure: Consent was obtained. The area was prepped in the usual sterile manner. Local anesthesia was infiltrated. Manual pressure was applied to the area, purulent fluid was drained. Using the abscess cavity was unroofed. All loculations were broken down. Hemostasis was assured. The wound was irrigated. The wound was then packed with iodoform packing strips and covered with surgical dressing. Assessment: Noel Loera is a 77 y.o.male with left Back abscess, epidermoid cyst Cutaneous abscess of back excluding buttocks [L02.212] Plan: I and D performed in the office today Pack wound once daily instructed Return to the office in 4-6 weeks Evaluation included: Preparing to see the patient (e.g., review of tests) Obtaining and/or reviewing separately obtained history Performing a medically appropriate examination and/or evaluation Counseling and educating the patient/family/caregiver Referring and communicating with other health daycare manager Donato Krishnan MD [facility] [place] documented in this encounter [facility] 04-12-2023 Miscellaneous Notes Refill request documented in this encounter [facility] 04-12-2023 Telephone encounter Note Refill request [facility] 04-12-2023 Miscellaneous Notes Patient called stating his infected cyst on his back is very painful. He was on antibiotics that you sent in for him. He is scheduled with Dr. Krishnan on Saturday. He is wanting to know if there is anything for pain you can send in for him. He states his pain level is a 6 out of 10. Please advise. documented in this encounter [facility] 04-12-2023 Telephone encounter Note Patient called stating his infected cyst on his back is very painful. He was on antibiotics that you sent in for him. He is scheduled with Dr. Krishnan on Saturday. He is wanting to know if there is anything for pain you can send in for him. He states his pain level is a 6 out of 10. Please advise. [facility] 03-29-2023 Miscellaneous Notes Refill request documented in this encounter [facility] 03-29-2023 Telephone encounter Note Refill request [facility] 01-29-2023 Note HNO ID: [id number] Author: Kannan Jarvis MD Service: ? Author Type: Physician Type: Progress Notes Filed: 01/29/2023 1:32 PM Note Text: [place] [id number] AMBULATORY PROCEDURE NOTE NAME: Noel Loera AGE: [age] year old CLINIC #: [id number] DATE: January 29, 2023 SURGEON: Kannan Jarvis MD PROCEDURE: Cystoscopy ANESTHESIA: Lidocaine gel per urethra DIAGNOSIS: Bladder cancer INDICATION: Surveillance FINDINGS: Tumor present: No Urethra: Normal Prostate: Moderate lateral lobes Verumontanum: Open Urine cytology: Bladder wash PROCEDURE: After informed consent was obtained, the patient was taken to the endoscopy suite. A time out was performed where the patient and the procedure were identified in the presence of the Nursing and Surgical Staff. Patient was placed in supine position, prepped and draped in the standard sterile fashion. Lidocaine gel was placed per urethra for local anesthesia. Cystoscopy was then performed using a 17 F flexible cystoscope. Sterile technique was maintained throughout. Please refer to above for specific findings during this part of the procedure. After carefully and atraumatically inspecting the urethra, prostate, and bladder, the bladder was emptied and the cystoscope was removed. The patient tolerated the procedure well and there were no complications. Oncologic History as Outlined in Dr. Stubbs's Office Note: 01/29/23 12/19/22 BCG x 6 complete 10/10/22 Stent removal - over 5 small tumors which were fulgurated 08/30/2022 TURBT - cTaHG urothelial carcinoma, MP present and uninvolved (OSH pathology). Stent placed. 08/28/2022 Cystoscopy - three 0.5 cm papillary tumors on a stalk, back wall, anterior wall, right wall 05/24/2022, 06/21/2022 mitomycin x2 05/17/2022 stent removal 04/27/2022 Antegrade nephrostogram and nephrostomy tube removal 04/20/2022 Percutaneous nephrostomy 04/19/2022 Restaging TURBT - atypical urothelial cells proliferating from primary tumor (OSH pathology). Unable to place stents. 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 ASSESSMENT/PLAN: Next surveillance cysto in 3 months. Discussed maintenance BCG, he wishes to think things over. By signing my name below, I, Chip Lizama, attest that this documentation has been prepared under the direction and in the presence of Dr. Jarvis Electronically signed, Edith Krause STAFF PHYSICIAN NOTE OF PERSONAL INVOLVEMENT IN CARE The above noted history, physical, assessment and plan were reviewed with the provider and critical portions of the HANDP were confirmed. I evaluated and examined the patient and agree with the plan above and provided direct supervision of the above provider during this patient's care. Kannan Jarvis MD [facility] 12-19-2022 History of Presen t illness Narrative Instill time complete approx 200 ml clear yellow urine obtained, erickson catheter DC per protocol as ordered as BCG cycle is complete Patient education reinforced regarding emergent S/S verbalizes understanding Delvis Segura RN 1335- Pt to private room for BCG instillation, erickson catheter already in placed per urology. BCG instilled per order and erickson clamped. Pt instructed to turn from side to side every 15 minutes. Pt at bedside and will keep time documented in this encounter [facility] 12-13-2022 Miscellaneous Notes Copy of order given to patient. No further questions noted from patient or spouse Delvis Segura RN Signed thanks Patient is in need of more legs bags. He will need a prescription per his local medical supply store and would like to know if you would be able to order. Please review the pending Rx Delvis Segura RN Patient will fill at [facility] in [place] Delvis Segura RN documented in this encounter [facility] 12-11-2022 Note HNO ID: [id number] Author: Alison Tyler RN Service: ? Author Type: Registered Nurse Type: Progress Notes Filed: 12/11/2022 11:03 AM Note Text: UROLOGY NURSE OFFICE VISIT REASON FOR VISIT: Catheter Change:Indwelling Urethral Pain Assessment: No 0 on a scale of 0 to 10 Procedure: The Indwelling Urethral indwelling erickson was removed without difficulty. The new 16 F coude erickson was inserted using sterile technique by Dr. Jarvis, due to past difficult insertion. The balloon was inflated to 10CC with sterile water. The patient tolerated the procedure well. Comments:N/A Plan: Catheter to be removed after #6 BCG treatment Alison Tyler RN [facility] 12-11-2022 History of Presen t illness Narrative UROLOGY NURSE OFFICE VISIT REASON FOR VISIT: Catheter Change:Indwelling Urethral Pain Assessment: No 0 on a scale of 0 to 10 Procedure: The Indwelling Urethral indwelling erickson was removed without difficulty. The new 16 F coude erickson was inserted using sterile technique by Dr. Jarvis, due to past difficult insertion. The balloon was inflated to 10CC with sterile water. The patient tolerated the procedure well. Comments:N/A Plan: Catheter to be removed after #6 BCG treatment Alison Tyler RN documented in this encounter [facility] 12-05-2022 History of Presen t illness Narrative 1320 Erickson already indwelling. Urinary bag change for BCG. Cath draining clear yellow urine. 1339 BCG instilled. Erickson clamped. at bedside and will set alarm on phone to turn every 30 min. 1430- pt tolerating well. Continues to turn on own. 1539 erickson unclamped and allowed to drain; draining clear yellow urine. 1550 leg reattached. Pt getting ready for discharge. documented in this encounter [facility] 11-28-2022 History of Presen t illness Narrative Erickson connected to large drain bag and drained to gravity. 250ml clear yellow drainage drained. Catheter reconnected back to leg bag and pt discharged home. Shadia Cantor RN BCG instilled into existing erickson catheter placed by [facility]. Erickson clamped and reconnected to leg bag. Pt instructed to turn from side to side every 15 minutes, will keep track on time on her cell phone. documented in this encounter [facility] 11-21-2022 History of Presen t illness Narrative 1540-Instill time complete. 200 ml clear yellow urine noted in collection container. Patient tolerated well, reports that he has no discomfort with catheter. S/S reviewed, spouse and patient verbalize understanding Delvis Segura RN documented in this encounter [facility] 11-20-2022 Miscellaneous Notes Spoke w/ pt. Pt reports that he still has pain at the tip of penis. Pain was present prior to start of treatment. Urine is clear w/ specks of blood. States he spoke w/ his urologist who informed him that this is normal. UA, C&S collected last week. Per Care Everywhere, results were negative for UTI. Pt has occasional bladder spasms. Taking pyridium and ditropan XL as prescribed. Denies fevers or chills. Has fatigue, but remains active. Continues to walk the dog, mow the lawn, and play catch w/ his grand kids. Rates his fatigue 3/10. Takes naps when needed. Drinking gatorade, ensure, and water t/o the day. Emptying his erickson bag 5-6 times per day. Pt will be in tomorrow for BCG #2. Denies needs at present time. Amanda Merritt RN CYCLE 1/DAY 1 POST TREATMENT CALL Today's date: November 20, 2022 Treatment Regimen: BCG C1D1 Date: 11/14/22 Called patient to follow-up on symptom management. No answer. Message left requesting call back. Amanda Merritt RN documented in this encounter [facility] 11-20-2022 Miscellaneous Notes Patient calling with multiple questions about catheter. All questions addressed to satisfaction. documented in this encounter [facility] 11-16-2022 Note HNO ID: [id number] Author: Kenisha Segura APRN.CHERELLE Service: ? Author Type: Nurse Practitioner Type: Progress Notes Filed: 11/16/2022 12:38 PM Note Text: Informed of side effects [facility] 11-16-2022 History of Presen t illness Narrative Informed of side effects documented in this encounter [facility] 11-14-2022 History of Presen t illness Narrative 1030: Patient has erickson in placed by urology at [facility] for treatments. Leg bag exchanged with large bag for BCG to drain after treatment. Pt complaining of pain in penis since foey placement. Recommend that he speaks with urology that placed the erickson. He has tried topical gel lidocaine and ibuprofen for pain with no relief. Pt and are hesitant about calling urology in [place] because of the far drive and traffic if they need to be seen. 1058:Urine drained and BCG infused into bladder. Clamp in place, pt instructed to turn every 30mins, verbalizes understanding. 1128:Pt turned to right side no issues noted at this time. 1200:PT turned to left side no issues, cramping, or pain at this time. 1230: Pt Turned to right side, verbalizes he is doing well. 1258: Urine and BCG drained 1310:250ml drained in bag and erickson bag removed and leg bag replaced. Pt notes no issues at this time aside from pain he had from erickson previously. Urine clear yellow. Pt verbalizes he will call urology office for pain in his penis, and verbalizes time for next weeks treatment. No further questions or concerns at this time. Jeremiah M [place], RN Pt is having pain associated with erickson catheter that was placed by urology. He is here for his wkly BCG tx and reports pain and leaking around the erickson. Pt states his brother is a physician and recommended he get a UA checked. Dr. Jungar aware of pain and does not think a UA is needed, he recommends pt contact his urologist that placed the erickson. Tx nurse informed. Joanne Gay RN documented in this encounter [facility] 11-12-2022 Miscellaneous Notes Pt c/o pain near the tip of penis and leaking of urine around the erickson while bearing down to have a bowel movement. Suggested to pt he that he call Dr Jarvis's office regarding his pain. Pt verbalizes understanding and agrees. Pt will be in on Saturday as scheduled for his BCG treatment. Amanda Merritt RN documented in this encounter [facility] 11-12-2022 Miscellaneous Notes Noel has been scheduled for his BCG's on Wednesdays. Patient notified Clerical: Please schedule pt for BCG once weekly x 6 treatments. Pt to start on , 11/15. Please call him w/ the appointments. Thanks! Amanda Merritt RN Images from the original note were not included. Kannan Jarvis MD You 2 minutes ago (4:31 PM) Yes please. I will change his Erickson in one month and your team may remove his Erickson at the time of his sixth and final treatment Pt received BCG #[address] Jarvis yesterday. Note from nurse states that the pt will be returning to [place] for his additional treatments. Per Dr Jarvis's nurse, pt now has an indwelling catheter in place. Spoke w/ pt. Catheter in place. Pt reports that they held his BCG yesterday due to hematuria after erickson placed. Denies any signs of hematuria today. Dr Jarvis: Can we proceed w/ treatment next week? Amanda Merritt RN documented in this encounter [facility] 11-08-2022 History of Presen t illness Narrative BLADDER INSTILLATION Patient ID with two (2) identifiers verified by: Natalia Roque RN Attempted to insert a 12 FR coude catheter for BCG treatment and was unable to advance catheter. A small amount of blood was present in the catheter. Called Dr. Jarvis and he came to the exam room and inserted an 18 FR coude catheter. Patient will be getting future BCG treatments in [place] through the catheter. Will have his [facility] BCG appointments cancelled. Natalia Roque RN documented in this encounter [facility] 11-06-2022 Miscellaneous Notes Kym - he was trying to have his BCG infusions closer to home - so [place] would be better. This is why he tried [place]. Post BCG cysto schedule is fine. Thanks, Francis. Patients appts have been canceled. Right - once his weekly x 6 followed by cysto (4 weeks after ) is done. I still wouldn't mind seeing him prior to his 4th week with labs. Marcell/Kym: Pt and spouse updated on situation. Informed pt that your office will be contacting him w/ appointments. Francis: When would you like to see pt for follow up? After repeat treatments and repeat cysto? Clerical: Please cancel pt's appointments here at our office. Amanda Merritt RN Images from the original note were not included. Kannan Jarvis MD Roso, Jordan, RN 25 minutes ago (7:37 AM) Correct, thanks Marcell Garcia RN Almassi, Nima, MD 11 hours ago (8:16 PM) JR So just with one our regular treatment nurses is okay? Not specifically in [facility]? Kannan Jarvis MD Roso, Jordan, RN 14 hours ago (5:16 PM) It doesn't have to be on a day when I'm in clinic, I just want our nurses giving BCG because the [place] nurses cannot catheterize him Marcell Garcia RN Almassi, Nima, MD 17 hours ago (2:44 PM) JR Regarding setting patient up for BCG in [facility], Marcell Corral RN 17 hours ago (2:31 PM) PILLO Faith, I spoke with Agustín and this would need to be cleared with Hayes before we can schedule. So she and Dr. Jarvis would need to agree on what dates and times can be done (provided that she feels [facility] can accommodate), especially since Dr. Jarvis's schedule is already so full. Agustín says that Hayes will be back on Saturday if you want to try to reach out to her at then. It also looks like pt's next BCG is scheduled for this Saturday. I'm not sure if [facility] would be able to get him in quite that fast. Thank you! Marcell Corral RN CretuYuana 18 hours ago (1:38 PM) JR Charis Mejía! Can we can we get this patient set up to receive remainder of BCG treatments (currently scheduled in [place]) in [facility]? Please make a note for nurse to use a coude catheter given his urethral false passage. Let me know if any issues with this. Thanks! Kannan Jarvis MD Sanabria, Felicia, RN; Marcell Garcia RN 4 days ago Marcell, can we get this patient set up for BCG here in [facility]. Would make a note to use a coude catheter given his urethral false passage (I scoped him in clinic and overall it looked fine). Let me know and thanks Patient was unable to receive treatment today d/t inability to place erickson catheter after multiple attempts. He would like Dr Jarvis's office to contact him regarding scheduling treatments. Delvis Segura RN documented in this encounter [facility] 11-02-2022 History of Presen t illness Narrative 1000 -- Attempted 16 fr coude catheter for erickson insertion, based on previous issues with unsuccessful catheterizations, via sterile technique. Erickson met with resistance nursing home through insertion; pt with slight discomfort and pressure at this time. Efforts continued by RN. 1013 -- Unsuccessful attempt at inserting erickson with coude and regular 16 fr erickson catheters. Pt agreeable for further attempts. 1015 -- Second RN in to attempt erickson insertion with second coude catheter and fresh, sterile kit at this time. 1030 -- Unsuccessful insertion of erickson for second time. Pt tolerating procedure tries okay, agreeable to proceed with further attempts. 1055 -- First RN re-attempting to insert 16 fr coude catheter with fresh, sterile erickson kit. Unsuccessful attempt; alternate catheters utilized, including regular 16 fr and 18 fr without insertion success. Pt states he will do whatever it takes to get it in and okay with another attempt. No bleeding or trauma noted. 1115 -- Second RN re-attempting to insert 16 fr coude catheter with new, sterile erickson kit. Pt states slight discomfort with attempts, but wants RN to proceed with attempt. 1123 -- Unsuccessful attempts at inserting erickson catheter despite multiple catheters, position changes and tries. Slight blood noted to tip of catheters at this time. No bleeding from urethra noted. Pt agreeable to forgo further attempts today and follow-up with Dr. Jarvis for further instructions, including likely rescheduling at another facility. Pt and aware phone encounter would be sent to physician/staff regarding visit and inability to get treatment today. Will await to hear for follow-up and further POC. Carmen Steen RN Refer to phone encounter for an update on today's encounter Delvis Segura RN documented in this encounter [facility] 11-02-2022 Instructions Ismael Stubbs MD - 11/02/2022 9:39 AM EDT Start Weekly BCG x 6 Proceed with week 1 BCG today. Additional 5 weekly treatment are scheduled. RTC prior to week 4 treatment. documented in this encounter [facility] 11-02-2022 History of Presen t illness Narrative Images from the original note were not included. NAME: Noel Loera [facility] NO.: [id number] DATE OF SERVICE: November 02, 2022 ([place]) Some elements in this clinic note that are critical to medical decision making have been carefully reviewed and included from a prior clinic note dated: September 28, 2022 ([place]) Referring Provider: Dr. Dimitrios Matson Additional Clinicians involved in Neol Loera's care: Dr. Katherin Sterling DIAGNOSIS: Multi-focal recurrent bladder cancer - non-invasive. ASSESSMENT: 77 year old man with prior history of prostate cancer and tobacco use as well as known history of noninvasive bladder cancer. 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 Repeat cystoscopy in August 2022 showed at least 3 tumors none of which were invasive. We will proceed with immunotherapy using BCG. PLAN: Start Weekly BCG x 6 Proceed with week 1 BCG today. Additional 5 weekly treatment are scheduled. RTC prior to week 4 treatment. HPI: CASE HISTORY: Reverse Chronological Order 08/30/2022 TURBT noninvasive papillary urothelial carcinoma, high-grade. Detrussor muscle present. 08/28/2022 cystoscopy three 0.5 cm papillary tumors on a stalk, back wall, anterior wall, right wall 05/24/2022, 06/21/2022 mitomycin x2 04/20/2022 percutaneous nephrostomy 04/19/2019 3 repeat TURBT atypical urothelial cells proliferating from primary tumor. 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 Stent removed. Cysto found additional high grade tumors. Will proceed with BCG today. Updated Visit, September 28, 2022: Noel Loera returns for follow-up and to begin treatment with BCG. Since his last visit there has been no significant medical changes. He offers no new complaints today. No new issues, problems or concerns. Initial Visit, September 13, 2022: Noel Loera presents today Hematology and Oncology evaluation. 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 He has multiple medical problems including prostate cancer diagnosed in 2016, details of which I will need to obtain additionally has had a history of pancreatitis in 2017, sleep apnea, tobacco use, hematuria. He was found to have recurring high-grade bladder cancer noninvasive on more recent surveillance cystoscopy. He recurred after mitomycin and presents for consideration of BCG. Given his multifocal and recurrent nature as well as high-grade, we will plan to proceed with 6 weekly doses of BCG as soon as he is back from a brief vacation. REVIEW OF SYSTEMS Per HPI and otherwise negative by full review of organ systems. ECOG PERFORMANCE STATUS: 0 PHYSICAL EXAMINATION: Vitals: BP 125/82 Pulse 66 Temp (Src) 97.3 (Temporal) Resp 16 Ht 6' .008 (1.83m) Wt 175 lb 3.2 oz (79.5kg) SpO2 98% BMI 23.76 kg/(m^2). Exam limited to gross visualization where appropriate. Gen.: This is an age-appropriate patient in no acute distress. Head: Appears atraumatic with no visible lesions. Eyes: Pupils equally round and reactive to light, extraocular muscles are intact. Neck: Supple. Respiratory: Appears to be respiring comfortably. Neurologic: Nonfocal to gross visualization. Alert and oriented 3. Psychiatric: No evidence of inappropriate anxiety or depression. Skin: Visible areas of skin without rash, lesions, wounds or petechiae. ALLERGIES: ALLERGIES No Known Allergies MEDICATIONS: escitalopram oxalate (LEXAPRO) 10 mg tablet Take 10 mg by mouth every morning. multivit-minerals/folic acid (MEN'S MULTIVITAMIN GUMMIES ORAL) Take 2 tablets by mouth once daily. lisinopril (ZESTRIL) 40 mg tablet Take 40 mg by mouth once daily. omeprazole (PRILOSEC) 20 mg capsule Take 20 mg by mouth every morning. simvastatin (ZOCOR) 40 mg tablet Take 40 mg by mouth every morning. ALPRAZolam (XANAX) 0.5 mg tablet take 1 tablet by mouth every morning then take 1 tablet every evening if needed for anxiety solifenacin 10 mg tablet Take 10 mg by mouth once daily. cephALEXin (KEFLEX) 500 mg capsule take 1 capsule by mouth EVERY 24 HOURS LABORATORY VALUES: WBC (k/uL) Date Value 11/02/2022 4.96 RBC (m/uL) Date Value 11/02/2022 4.73 Hemoglobin (g/dL) Date Value 11/02/2022 14.3 Hematocrit (%) Date Value 11/02/2022 43.1 MCV (fL) Date Value 11/02/2022 91.1 MCH (pg) Date Value 11/02/2022 30.2 MCHC (g/dL) Date Value 11/02/2022 33.2 RDW-CV (%) Date Value 11/02/2022 13.1 Platelet Count (k/uL) Date Value 11/02/2022 182 MPV (fL) Date Value 11/02/2022 9.5 Glucose (mg/dL) Date Value 11/02/2022 119 (H) BUN (mg/dL) Date Value 11/02/2022 27 (H) Creatinine (mg/dL) Date Value 11/02/2022 1.22 Sodium (mmol/L) Date Value 11/02/2022 139 Potassium (mmol/L) Date Value 11/02/2022 4.4 Chloride (mmol/L) Date Value 11/02/2022 102 CO2 (mmol/L) Date Value 11/02/2022 27 Protein, Total (g/dL) Date Value 11/02/2022 7.0 Albumin (g/dL) Date Value 11/02/2022 4.6 Calcium, Total (mg/dL) Date Value 11/02/2022 9.6 Alkaline Phosphatase (U/L) Date Value 11/02/2022 76 Bilirubin, Total (mg/dL) Date Value 11/02/2022 0.6 AST (U/L) Date Value 11/02/2022 26 ALT (U/L) Date Value 11/02/2022 17 DIAGNOSIS: (C67.8) Malignant neoplasm of overlapping sites of bladder (HCC) (primary encounter diagnosis) PAST MEDICAL HISTORY Diagnosis Date Bladder cancer (HCC) Gross hematuria History of prostate cancer HTN (hypertension) Hyperlipidemia Migraine Pancreatitis PAST SURGICAL HISTORY Procedure Laterality Date INGUINAL HERNIA REPAIR HX RADICAL PROSTATECTOMY REMOVAL GALLBLADDER TRANSURETHRAL RESECTION OF BLADDER NECK VASECTOMY Social History Tobacco Use Smoking status: Former Types: Cigarettes Quit date: 1979 Years since quittin.6 Passive exposure: Past Smokeless tobacco: Never Vaping Use Vaping Use: Never used Substance Use Topics Alcohol use: Yes Comment: 1 daily Drug use: Not Currently No family history on file. I spent a total of 30 minutes on the date of the service which included preparing to see the patient, [id number] patient care, completing clinical documentation, obtaining and/or reviewing separately obtained history, performing a medically appropriate examination, counseling and educating the patient/family/caregiver, ordering medications, tests, or procedures, independently interpreting results (not separately reported), communicating results to the patient/family/caregiver, and care coordination (not separately reported). ' Ismael Stubbs MD, CPE Hematology and Oncology Services Provided at: [place], [place] CC: Dr. Dimitrios Matson [address] [facility] [address] Dr. Katherin Sterling [address] [facility] [facility] [id number] [address] Kannan Negrete documented in this encounter [facility] 10-15-2022 Miscellaneous Notes Patient and called asking about Cysto scheduled in November and asked that it be canceled and the one scheduled in January be made due to the treatments starting 11/02 and lasting 6 weeks. Cysto scheduled to accommodate in case delays in treatment due to location change or infection. Patient and are nervous that [facility] would not be able to insert catheter (Coude) due to past experiences and asked if [facility] would not be able to complete the treatment on 11/02 if they could have treatments in [place] or here at [facility], I said yes but would have to see the availability at that time. documented in this encounter [facility] 10-12-2022 Miscellaneous Notes I spoke with Noel and his to discuss results of bladder biopsy- papillary noninvasive, high-grade. He is set up start BCG November 02. He will call the office with any questions. Kenisha Segura APRN.CNP documented in this encounter [facility] 10-11-2022 Miscellaneous Notes Cancelled all appts as requested. Pt was seen per Dr Jarvis yesterday for f/u and cystectomy. Dr Jarvis's note reads: To further evaluate, I recommended cystoscopy which was performed today (see separate cystoscopy note). In summary, cystoscopy demonstrated a mild posterior false urethral passage from traumatic catheterization, but no evidence of stricture of BNC. Cystoscopy also demonstrated multiple small (<5mm) papillary tumors were present which I fulgurated in office. I also removed the ureteral stent with the UO appearing widely patent. Will schedule renal US in 2 weeks for assess for hydronephrosis after stent removal. Recommend pushing back start of BCG 3 weeks from now given fulguration performed in office today. Recommend use of Coude catheter for BCG instillation - if difficulty again, may need to set him up for treatment with urology nursing team. I have communicated above with Dr. Stubbs and his team. Surveillance cystoscopy with me 4 weeks after completing induction intravesical BCG. Clerical: Please cancel all appointments except 11/02. Pt will return that day as scheduled for start of BCG. Francis/Gerda: GIANLUCAI.... Amanda Merritt RN documented in this encounter [facility] 10-10-2022 History of Presen t illness Narrative UNIVERSAL PROTOCOL / SAFETY CHECKLIST Procedure to be Performed: cystoscopy Sign In: A Moment of CARE was completed. Personnel directly involved with the procedure wore the appropriate PPE (Personal Protective Equipment). No special equipment needed. Patient/Surrogate Stated/Verified: PATIENT VERIFIED(optional for EMERGENT procedures): Patient name, Date of , Relevant allergies, and The intended procedure Time Out Communication: Intended patient and procedure match the source documents. Consent documented and matches the intended procedure. Relevant labs, photos, and/or imaging studies have been reviewed. Correct side/site marked and visible. Medications required for procedure verified. Fire risk assessed and interventions discussed. No implant(s) inserted. Sign Out: SIGN OUT (optional for EMERGENT procedures): All specimen containers correctly labeled. All instruments, equipment, possible retained foreign bodies accounted for. Post-procedure follow-up management communicated and Plan of Care Visit completed when applicable. Rudy Ayers RN [place] [id number] AMBULATORY PROCEDURE NOTE NAME: Noel Loera AGE: [age] year old CLINIC #: [id number] DATE: October 10, 2022 SURGEON: Kannan Jarvis MD PROCEDURE: Cystoscopy ANESTHESIA: Lidocaine gel per urethra DIAGNOSIS: Bladder cancer INDICATION: Cysto, Stent removal FINDINGS: Mild bulbar urethral false passage, no evidence of urethral stricture or bladder neck contracture Number of tumors: > 5 Size of largest tumor: < 0.5 cm Appearance: Papillary Location: Right wall, Left wall, Posterior wall, and Dome Urethral involvement: No Ureteral orifice involvement: No Tumors fulgurated in office today. Urethra: Normal Prostate: Surgically absent Verumontanum: Open Urine cytology: Not sent PROCEDURE: After informed consent was obtained, the patient was taken to the endoscopy suite. A time out was performed where the patient and the procedure were identified in the presence of the Nursing and Surgical Staff. Patient was placed in supine position, prepped and draped in the standard sterile fashion. Lidocaine gel was placed per urethra for local anesthesia. Cystoscopy was then performed using a 17 F flexible cystoscope. Sterile technique was maintained throughout. Please refer to above for specific findings during this part of the procedure. After carefully and atraumatically inspecting the urethra, prostate, and bladder, the bladder was emptied and the cystoscope was removed. The patient tolerated the procedure well and there were no complications. Oncologic History as Outlined in Dr. Stubbs's Office Note: 08/30/2022 TURBT noninvasive papillary urothelial carcinoma, high-grade. Detrussor muscle present. Stent placement. 08/28/2022 cystoscopy three 0.5 cm papillary tumors on a stalk, back wall, anterior wall, right wall 05/24/2022, 06/21/2022 mitomycin x2 05/17/2022, ureteral stent removed per OV note with Dr. Matson. 04/20/2022 percutaneous nephrostomy 04/19/2019 3 repeat TURBT atypical urothelial cells proliferating from primary tumor. 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 Stubbs's office 09/28/2022 for intravesical BCG instillation however the nursing staff was unable to place a Erickson catheter after multiple attempts and he presents today for evaluation of this. 10/10/22 Cysto: several small tumors fulgurated in office today; cytology: pending ASSESSMENT/PLAN: H/o NMIBC Difficulty catheterizing Hydronephrosis Cystoscopy without evidence of stricture but with mild posterior false urethral passage. Recommend use of Coude catheter for future BCG instillations. Multiple small (<5mm) papillary tumors, fulgurated in office today. Scheduled for BCG with Dr. Stubbs's team, would push back to ~ 3 weeks from now. Ureteral stent removed fully intact today. UO looks widely patent. Will schedule renal US in ~2 weeks to ensure no recurrent hydronephrosis, which is a possibility that I counseled him on. By signing my name below, I, Chip Lizama, attest that this documentation has been prepared under the direction and in the presence of Dr. Jarvis Electronically signed, Edith Krause STAFF PHYSICIAN NOTE OF PERSONAL INVOLVEMENT IN CARE The above noted history, physical, assessment and plan were reviewed with the provider and critical portions of the H&P were confirmed. I evaluated and examined the patient and agree with the plan above and provided direct supervision of the above provider during this patient's care. Kannan Jarvis MD October 11, 2022 documented in this encounter [facility] 10-10-2022 Nurse Note Actual procedure/procedure scheduled: Yes Performing provider/scheduled provider: Yes Patient was roomed in: Q9- 07 Beauty Artist offered:Patient declines Patient arrived in the room at: 1352 Patient ready for procedure: 1405 The procedure started at ( Time Only): 1430 The procedure ended at: 1450 Was the procedure delayed: No The patient left the procedure room at: 1506 Rudy Ayers RN PRE PROCEDURE ASSESSMENT- Cysto/stent extraction Procedure Indication: Cystoscopy Latex Allergy: No Allergies reviewed and updated. Yes Pre-Procedure Vital Signs: BP: 168/87 Pulse: 60 Heart valve replacement: No Joint replacement: No Back Office UA otained: yes PROCEDURE PREP-Cysto/Stent Extraction Patient ID with two(2)identifiers verified by: Rudy Ayers RN Patient Prep: Betadine Scrub to perineum and placement of Sterile Drape. COMPLETED Anesthetic Given:10 cc 2% Lidocaine jelly Rudy Ayers RN UNIVERSAL PROTOCOL / SAFETY CHECKLIST Procedure to be performed: Cystoscopy Sign in Communication: Completed Time Out: Team Confirms the Correct Patient, Correct Procedure, Correct Site and Site Marking, Correct Position (if applicable). Sign Out Discussion: Completed Rudy Ayers RN POST PROCEDURE NURSE ASSESSMENT Present along with physician during procedure exam. Rudy Ayers RN Instruction sheet given and reviewed and patient verbalizes understanding: yes Current pain intensity is 0 on a 0-10 pain scale. Rudy Ayers RN AMBULATORY PATIENT EDUCATION THE FOLLOWING WAS EVALUATED Motivation To Learn: Eager Interested Family/Significant Other Support: None - Unavailable/disinterested Cognitive Ability: Alert/Oriented Method of Instruction: Written instruction - handouts The Following Influencing Factors Were Barriers To This Education Session: None The Following Physical Limitations Were Barriers To This Education Session: None Instruction Provided To: Patient and family member Logistics Specialist Present: not applicable Discipline: Nursing Learning Topic: SURVIVAL SKILLS: Symptom Management Patient Evaluation: Verbalizes understanding: Yes Supplemental Material Given: Written Material Instructed By Rudy Ayers RN In Department Urology . 2 biopsy samples taken with cautherization documented in this encounter [facility] 10-10-2022 History of Presen t illness Narrative Images from the original note were not included. [facility] NEW PATIENT HISTORY AND PHYSICAL EXAM PATIENT INFO: Noel Randy Loera 77 year old REFERRING M.D.: Ismael Stubbs MD PCP: Katherin Sterling MD Consultation requested by Ismael Stubbs MD for an opinion regarding bladder cacner and my final recommendations will be communicated back to the requesting physician by way of shared medical record or letter via US mail. HPI 77 year old male w/h/o prostate cancer, HTN, pancreatitis, GERD referred for evaluation of bladder cancer and difficulty catheterizing at time of planned intravesical BCG instillation. Oncologic History as Outlined in Dr. Stubbs's Office Note: 08/30/2022 TURBT - cTaHG urothelial carcinoma, MP present and uninvolved (OSH pathology). Stent placed. 08/28/2022 Cystoscopy - three 0.5 cm papillary tumors on a stalk, back wall, anterior wall, right wall 05/24/2022, 06/21/2022 mitomycin x2 05/17/2022 stent removal 04/27/2022 Antegrade nephrostogram and nephrostomy tube removal 04/20/2022 Percutaneous nephrostomy 04/19/2022 Restaging TURBT - atypical urothelial cells proliferating from primary tumor (OSH pathology). Unable to place stents. 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 Matson in [place]. He has a stent in place from TURBT 08/30/2022. He was seen in Dr. Stubbs's office 09/28/2022 for intravesical BCG instillation however the nursing staff was unable to place a Erickson catheter after multiple attempts and he presents today for evaluation of this. At baseline, denies bothersome urinary symptoms or incontinence. Currently endorses pain with urination from current stent. He has only had PNT on right side. Last PSA 02/09/2022 undetectable. Is unsure why staff was unable to insert cathter for intravesical treatments. PATHOLOGY: As above LAB: Creatinine Date Value Ref Range Status 09/28/2022 1.21 0.73 - 1.22 mg/dL Final No results found for: PSA No results found for: COLOR, CLARITY, UGLUC, UBILI, UKET, SPGR, UHB, UPH, UPROT, UROBILINOGEN, NITRITES, LEUKEST IMAGIN02/20/2022 CT A/P IMPRESSION: No CT evidence of acute abdominal or pelvic abnormality. Status post prostatectomy. Stable CT abdomen and pelvis compared to the most recent prior study on 02/16/2019. ALLERGIES: ALLERGIES No Known Allergies MEDICATIONS: escitalopram oxalate (LEXAPRO) 10 mg tablet Take 10 mg by mouth every morning. multivit-minerals/folic acid (MEN'S MULTIVITAMIN GUMMIES ORAL) Take 2 tablets by mouth once daily. solifenacin 10 mg tablet Take 10 mg by mouth once daily. cephALEXin (KEFLEX) 500 mg capsule take 1 capsule by mouth EVERY 24 HOURS lisinopril (ZESTRIL) 40 mg tablet Take 40 mg by mouth once daily. omeprazole (PRILOSEC) 20 mg capsule Take 20 mg by mouth every morning. simvastatin (ZOCOR) 40 mg tablet Take 40 mg by mouth every morning. ALPRAZolam (XANAX) 0.5 mg tablet take 1 tablet by mouth every morning then take 1 tablet every evening if needed for anxiety HISTORIES PAST MEDICAL HISTORY Diagnosis Date Bladder cancer (HCC) Gross hematuria History of prostate cancer HTN (hypertension) Hyperlipidemia Migraine Pancreatitis No family history on file. PAST SURGICAL HISTORY Procedure Laterality Date INGUINAL HERNIA REPAIR HX RADICAL PROSTATECTOMY REMOVAL GALLBLADDER TRANSURETHRAL RESECTION OF BLADDER NECK VASECTOMY SOCIAL HISTORY Social History Tobacco Use Smoking status: Former Types: Cigarettes Quit date: 1979 Years since quittin.5 Passive exposure: Past Smokeless tobacco: Never Vaping Use Vaping Use: Never used Substance Use Topics Alcohol use: Yes Comment: 1 daily Drug use: Not Currently REVIEW OF SYSTEMS General: No weight loss, malaise or fevers. Gastrointestinal: Negative for abdominal discomfort, blood in stools or black stools or change in bowel habits Genitourinary: See HPI The remainder of the ROS was reviewed and was negative. PHYSICAL EXAMINATION There were no vitals taken for this visit. 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 I recommended cystoscopy for evaluation of difficulty catheterizing and for ureteral stent removal, which was apparently performed at time of TURBT due to concerns about resection over the UO - there is no record of imaging showing hydronephrosis to suggest this was the indication for stent placement. I did direct care counselor him on possible development of hydronephrosis after stent removal and possible need for further intervention which he accepted and understands. To further evaluate, I recommended cystoscopy which was performed today (see separate cystoscopy note). In summary, cystoscopy demonstrated a mild posterior false urethral passage from traumatic catheterization, but no evidence of stricture of BNC. Cystoscopy also demonstrated multiple small (<5mm) papillary tumors were present which I fulgurated in office. I also removed the ureteral stent with the UO appearing widely patent. Will schedule renal US in 2 weeks for assess for hydronephrosis after stent removal. Recommend pushing back start of BCG 3 weeks from now given fulguration performed in office today. Recommend use of Coude catheter for BCG instillation - if difficulty again, may need to set him up for treatment with urology nursing team. I have communicated above with Dr. Stubbs and his team. Surveillance cystoscopy with me 4 weeks after completing induction intravesical BCG. Noel and Komal had opportunity to ask questions which were answered to their satisfaction and are in agreement with proceeding with the plan as outlined above. I spent a total of 60 minutes on the date of the service which included preparing to see the patient, [id number] patient care, completing clinical documentation, obtaining and/or reviewing separately obtained history, counseling and educating the patient/family/caregiver, communicating with other HCPs (not separately reported), independently interpreting results (not separately reported), and communicating results to the patient/family/caregiver. By signing my name below, I, Chip Lizama, attest that this documentation has been prepared under the direction and in the presence of Dr. Jarvis Electronically signed, Edith Krause STAFF PHYSICIAN NOTE OF PERSONAL INVOLVEMENT IN CARE The above noted history, physical, assessment and plan were reviewed with the provider and critical portions of the H&P were confirmed. I evaluated and examined the patient and agree with the plan above and provided direct supervision of the above provider during this patient's care. Kannan Jarvis MD documented in this encounter [facility] 10-01-2022 Miscellaneous Notes Appointment cancelled. Thank you! Jeremiah Chavez Pt calls to ask why he is still scheduled for BCG treatment on 10/05. He has an appointment w/ Dr Jarvis on 10/10 for cysto. Informed pt that we would cancel Saturday's appointment and that we would address the status of further treatments after we have results of his cysto and urology's recommendations. Pt and spouse verbalizes understanding. Spouse asks for address and phone number for his Urology appointment. Address and phone number as noted under his appointment provided to pt's spouse. Spouse verbalizes understanding. Clerical: Please cancel Saturday's treatment appointment. Amanda Merritt RN documented in this encounter [facility] 09-28-2022 Miscellaneous Notes I called and notified pt and his Komal of the plan for a consult and cysto on the same day [facility]. They do not use [employer] for appointment updates but will be awaiting your call once the appointment is moved up. Hi Dr. Jarvis, This patient is scheduled for consult with you on 10/23. Patient was in our [place] office today to receive BCG treatment and the nursing staff was unable to put his erickson catheter in after several attempts. Are you able to see this patient sooner? Thank you! Jeremiah Chavez documented in this encounter [facility] 09-28-2022 History of Presen t illness Narrative Pt in [place] today for BCG treatment. Attempted to place a regular 16 marshallese erickson catheter and was met with resistance and coiling. Upon further discussion with pt previous catheters had been placed while in surgery under anesthesia for a procedure. Per pt's there was one successful placement of a catheter at [facility] for his second mitomycin treatment in June. This past august he had a follow up with Dr. Matson with cystoscopy and stent placement. A 16 marshallese coude catheter was then attempted to be placed and again met with strong resistance at the base of the penis. A last effort was attempted with a more firm 18 marshallese coude catheter and we were unable to make it past the stricture. At that time we decided to get in contact with Dr. Jarvis's office and requested an venkatesh appointment for evaluation. documented in this encounter [facility] 09-28-2022 Nurse Note Patient is constipated he wonders if it from medications or ureteral stent. Aidee Young MA documented in this encounter [facility] 09-28-2022 History of Presen t illness Narrative Images from the original note were not included. NAME: Noel Loera [facility] NO.: [id number] DATE OF SERVICE: September 28, 2022 ([place]) (Elements copied from Dr. Stubbs note dated September 13, 2022, have been reviewed and updated where appropriate, and all reflect current assessment and medical decision making during today's encounter, September 28, 2022.) Referring Provider: Dr. Dimitrios Matson Additional Clinicians involved in Noel Loera's care: Dr. Katherin Sterling DIAGNOSIS: Multi-focal recurrent bladder cancer - non-invasive. ASSESSMENT: 77 year old man with prior history of prostate cancer and tobacco use as well as known history of noninvasive bladder cancer. 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 Repeat cystoscopy in August 2022 showed at least 3 tumors none of which were invasive. We will proceed with immunotherapy using BCG. PLAN: The riske, benefits and side effects were discussed at length with the patient. Consent was obtained. Weekly BCG x 6 Proceed with week 1 BCG today. Additional 5 weekly treatment are scheduled. Follow up as scheduled on 11/02/[address] Stubbs. Has appointment with Dr. Kannan Negrete at [facility] on 10/23/2022. HPI: CASE HISTORY: Reverse Chronological Order 08/30/2022 TURBT noninvasive papillary urothelial carcinoma, high-grade. Detrussor muscle present. 08/28/2022 cystoscopy three 0.5 cm papillary tumors on a stalk, back wall, anterior wall, right wall 05/24/2022, 06/21/2022 mitomycin x2 04/20/2022 percutaneous nephrostomy 04/19/2019 3 repeat TURBT atypical urothelial cells proliferating from primary tumor. 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 Since his last visit there has been no significant medical changes. He offers no new complaints today. No new issues, problems or concerns. Initial Visit, September 13, 2022: Noel Loera presents today Hematology and Oncology evaluation. 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 He has multiple medical problems including prostate cancer diagnosed in 2016, details of which I will need to obtain additionally has had a history of pancreatitis in 2017, sleep apnea, tobacco use, hematuria. He was found to have recurring high-grade bladder cancer noninvasive on more recent surveillance cystoscopy. He recurred after mitomycin and presents for consideration of BCG. Given his multifocal and recurrent nature as well as high-grade, we will plan to proceed with 6 weekly doses of BCG as soon as he is back from a brief vacation. REVIEW OF SYSTEMS Per HPI and otherwise negative by full review of organ systems. ECOG PERFORMANCE STATUS: 0 PHYSICAL EXAMINATION: Vitals: BP 122/75 Pulse 71 Temp (Src) 97.3 (Temporal) Resp 16 Wt 174 lb 3.2 oz (79.0kg) SpO2 98% Exam limited to gross visualization where appropriate. Gen.: This is an age-appropriate patient in no acute distress. Head: Appears atraumatic with no visible lesions. Eyes: Pupils equally round and reactive to light, extraocular muscles are intact. Neck: Supple. Respiratory: Appears to be respiring comfortably. Neurologic: Nonfocal to gross visualization. Alert and oriented 3. Psychiatric: No evidence of inappropriate anxiety or depression. Skin: Visible areas of skin without rash, lesions, wounds or petechiae. ALLERGIES: ALLERGIES No Known Allergies MEDICATIONS: multivit-minerals/folic acid (MEN'S MULTIVITAMIN GUMMIES ORAL) Take 2 tablets by mouth once daily. solifenacin 10 mg tablet Take 10 mg by mouth once daily. cephALEXin (KEFLEX) 500 mg capsule take 1 capsule by mouth EVERY 24 HOURS lisinopril (ZESTRIL) 40 mg tablet Take 40 mg by mouth once daily. omeprazole (PRILOSEC) 20 mg capsule Take 20 mg by mouth every morning. simvastatin (ZOCOR) 40 mg tablet Take 40 mg by mouth every morning. ALPRAZolam (XANAX) 0.5 mg tablet take 1 tablet by mouth every morning then take 1 tablet every evening if needed for anxiety LABORATORY VALUES: Hemoglobin (g/dL) Date Value 09/28/2022 14.4 Hematocrit (%) Date Value 09/28/2022 44.2 WBC (k/uL) Date Value 09/28/2022 5.73 Platelet Count (k/uL) Date Value 09/28/2022 168 DIAGNOSIS: (C67.8) Malignant neoplasm of overlapping sites of bladder (HCC) (primary encounter diagnosis) PAST MEDICAL HISTORY Diagnosis Date Bladder cancer (HCC) Gross hematuria History of prostate cancer HTN (hypertension) Hyperlipidemia Migraine Pancreatitis PAST SURGICAL HISTORY Procedure Laterality Date INGUINAL HERNIA REPAIR HX RADICAL PROSTATECTOMY REMOVAL GALLBLADDER TRANSURETHRAL RESECTION OF BLADDER NECK VASECTOMY Social History Tobacco Use Smoking status: Former Types: Cigarettes Quit date: 1980 Years since quittin.5 Smokeless tobacco: Never Vaping Use Vaping Use: Never used Substance Use Topics Alcohol use: Yes Comment: 1 daily Drug use: Not Currently No family history on file. Gerda Valentino APRN.[facility] Provided at: [facility] [facility] [place], [place] CC: Dr. Dimitrios Matson [address] [facility] [address] [address] Katherin Sterling [address] [facility], [address] [facility] [address] [address] Kannan Negrete I spent a total of 30 minutes on the date of the service which included preparing to see the patient, [id number] patient care, completing clinical documentation, obtaining and/or reviewing separately obtained history, performing a medically appropriate examination, counseling and educating the patient/family/caregiver, ordering medications, tests, or procedures, independently interpreting results (not separately reported), and communicating results to the patient/family/caregiver. documented in this encounter [facility] 09-18-2022 Miscellaneous Notes Patient has an appt on 09/28/22 for treatment. Would you like labs, if so place orders. Aidee Young MA documented in this encounter [facility] 09-05-2022 Hospital Discharg e instructions Patient Education 09/05/2022 16:44:46 Bladder Cancer Bladder Cancer Bladder cancer is a condition where abnormal tissue (a tumor) grows in the bladder. The bladder is the organ that holds urine. Two tubes (ureters) carry urine from the kidneys to the bladder. The bladder wall is made of layers of tissue. Cancer that spreads through these layers of the bladder wall becomes more difficult to treat. What increases the risk? The following factors may make you more likely to develop this condition: Smoking. Working where there are risks (occupational exposures), such as working with rubber, leather, clothing fabric, dyes, chemicals, or paint. Being 55 years of age or older. Being male. Having long-term bladder inflammation. Having a history of cancer. This includes: ?A family history of bladder cancer. ?Having had bladder cancer before. ?Having had certain treatments for cancer before, such as: ?Medicines to kill cancer cells (chemotherapy). ?Strong X-ray beams or high-energy capsules to kill cancer cells and shrink tumors (radiation therapy). Having been exposed to arsenic. This is a poisonous substance. What are the signs or symptoms? Early symptoms of this condition include: Blood in your urine. Pain when urinating. Infections of your urinary system (urinary tract infections or UTIs) that happen often. Having to urinate sooner or more often than normal. Late symptoms of this condition include: Not being able to urinate. Pain on one side of your lower back. Loss of appetite. Weight loss. Tiredness (fatigue). Swelling in your feet. Bone pain. How is this diagnosed? This condition is diagnosed based on: Your medical history. A physical exam. Lab tests, such as urine tests. Imaging tests. Your symptoms. You may also have other tests or procedures, such as: A cystoscopy. This involves putting a narrow tube into your urethra. The urethra is the organ that carries urine from your bladder to the outside of your body. This procedure is done to view the lining of your bladder for tumors. A biopsy. This involves removing a tissue sample to look at under a microscope to check for cancer. Blood tests or imaging tests may be needed. These show how far into the bladder wall cancer has grown, and if cancer has spread to any other parts of your body. Tests may include: CT scan. MRI. Bone scan. X-ray. How is this treated? Your health care provider may recommend one or more types of treatment based on the stage of your cancer. The most common treatments are: Surgery to remove the cancer. Types of surgeries include: ?Removing a tumor on the inside wall of the bladder (transurethral resection). ?Removing the bladder (cystectomy). Radiation therapy. This is often combined with chemotherapy. Chemotherapy. Immunotherapy. This uses medicines to help your body's disease-fighting system (immune system) destroy cancer cells. Follow these instructions at home: Take spaq-rzo-knnrcrw and prescription medicines only as told by your health care provider. If you were prescribed an antibiotic medicine, take it as told by your health care provider. Do not stop using the antibiotic even if you start to feel better. Eat a healthy diet. Some treatments might affect your appetite. Do not use any products that contain nicotine or tobacco. These products include cigarettes, chewing tobacco, and vaping devices, such as e-cigarettes. If you need help quitting, ask your health care provider. Consider joining a support group. This may help you learn to deal with the stress of having bladder cancer. Tell your cancer care team if you develop side effects. Your team may be able to recommend ways to get relief. Keep all follow-up visits. This is important. Where to find more information [place] [employer] (ACS): cancer.org National Cancer [place] (NCI): cancer.gov Contact a health care provider if: You have symptoms of a UTI. These include: ?Fever. ?Chills. ?Weakness. ?Muscle aches. ?Pain in your abdomen. ?Urge to urinate that is stronger and happens more often than normal. ?Burning in the bladder or urethra when you urinate. Get help right away if: There is blood in your urine. You cannot urinate. You have severe pain or other symptoms that do not go away. Summary Bladder cancer is a condition where tumors grow in the bladder. Diagnosis is based on your medical history, a physical exam, lab tests, imaging tests, and your symptoms. Your health care provider may recommend one or more types of treatment based on the stage of your cancer. Consider joining a support group. This may help you learn to deal with the stress of having bladder cancer. This information is not intended to replace advice given to you by your health care provider. Make sure you discuss any questions you have with your health care provider. Document Revised: 03/05/2022 Document Reviewed: 03/05/2022 [employer] Patient Education 2022 [employer] [place]. Follow Up Care 08/28/2022 15:19:50 With:DANO SILVERIO, Dimitrios Lion, URL Address: [facility] [address] , [place] [address]- When: Unknown [facility] 05-14-2022 Hospital Discharg e instructions Patient Education 05/14/2022 11:57:12 Bladder Cancer Bladder Cancer Bladder cancer is an abnormal growth of tissue in the bladder. The bladder is the balloon-like sac in the pelvis. It collects and stores urine that comes from the kidneys through the ureters. The bladder wall is made of layers. If cancer spreads into these layers and through the wall of the bladder, it becomes more difficult to treat. What are the causes? The cause of this condition is not known. What increases the risk? The following factors may make you more likely to develop this condition: Smoking. Workplace risks (occupational exposures), such as rubber, leather, textile, dyes, chemicals, and paint. Being white. Your age. Most people with bladder cancer are over the age of 55. Being male. Having chronic bladder inflammation. Having a personal history of bladder cancer. Having a family history of bladder cancer (heredity). Having had chemotherapy or radiation therapy to the pelvis. Having been exposed to arsenic. What are the signs or symptoms? Initial symptoms of this condition include: Blood in the urine. Painful urination. Frequent bladder or urine infections. Increase in urgency and frequency of urination. Advanced symptoms of this condition include: Not being able to urinate. Low back pain on one side. Loss of appetite. Weight loss. Fatigue. Swelling in the feet. Bone pain. How is this diagnosed? This condition is diagnosed based on your medical history, a physical exam, urine tests, lab tests, imaging tests, and your symptoms. You may also have other tests or procedures done, such as: A narrow tube being inserted into your bladder through your urethra (cystoscopy) in order to view the lining of your bladder for tumors. A biopsy to sample the tumor to see if cancer is present. If cancer is present, it will then be staged to determine its severity and extent. Staging is an assessment of: The size of the tumor. Whether the cancer has spread. Where the cancer has spread. It is important to know how deeply into the bladder wall cancer has grown and whether cancer has spread to any other parts of your body. Staging may require blood tests or imaging tests, such as a CT scan, MRI, bone scan, or chest X-ray. How is this treated? Based on the stage of cancer, one treatment or a combination of treatments may be recommended. The most common forms of treatment are: Surgery to remove the cancer. Procedures that may be done include transurethral resection and cystectomy. Radiation therapy. This is high-energy X-rays or other particles. This is often used in combination with chemotherapy. Chemotherapy. During this treatment, medicines are used to kill cancer cells. Immunotherapy. This uses medicines to help your own immune system destroy cancer cells. Follow these instructions at home: Take pskk-zpv-lhdefpu and prescription medicines only as told by your health care provider. Maintain a healthy diet. Some of your treatments might affect your appetite. Consider joining a support group. This may help you learn to cope with the stress of having bladder cancer. Tell your cancer care team if you develop side effects. They may be able to recommend ways to relieve them. Keep all follow-up visits as told by your health care provider. This is important. Where to find more information [place] [employer]: www.cancer.org National Cancer Cody (NCI): www.cancer.gov Contact a health care provider if: You have symptoms of a urinary tract infection. These include: ?Fever. ?Chills. ?Weakness. ?Muscle aches. ?Abdominal pain. ?Frequent and intense urge to urinate. ?Burning feeling in the bladder or urethra during urination. Get help right away if: There is blood in your urine. You cannot urinate. You have severe pain or other symptoms that do not go away. Summary Bladder cancer is an abnormal growth of tissue in the bladder. This condition is diagnosed based on your medical history, a physical exam, urine tests, lab tests, imaging tests, and your symptoms. Based on the stage of cancer, surgery, chemotherapy, or a combination of treatments may be recommended. Consider joining a support group. This may help you learn to cope with the stress of having bladder cancer. This information is not intended to replace advice given to you by your health care provider. Make sure you discuss any questions you have with your health care provider. Document Released: 03/27/2004 Document Revised: 03/07/2018 Document Reviewed: 02/26/2017 [employer] Patient Education 2020 [employer] [place]. Follow Up Care 05/11/2022 15:31:48 With:DANO SILVERIO, Dimitrios Lion, URL Address: [facility] [address] , [place] [phone]- [phone] When: Unknown Comments:f/u after stent removal for intravesical tx [facility] 04-30-2022 Hospital Discharg e instructions Patient Education 04/30/2022 08:32:26 Bladder Cancer Bladder Cancer Bladder cancer is an abnormal growth of tissue in the bladder. The bladder is the balloon-like sac in the pelvis. It collects and stores urine that comes from the kidneys through the ureters. The bladder wall is made of layers. If cancer spreads into these layers and through the wall of the bladder, it becomes more difficult to treat. What are the causes? The cause of this condition is not known. What increases the risk? The following factors may make you more likely to develop this condition: Smoking. Workplace risks (occupational exposures), such as rubber, leather, textile, dyes, chemicals, and paint. Being white. Your age. Most people with bladder cancer are over the age of 55. Being male. Having chronic bladder inflammation. Having a personal history of bladder cancer. Having a family history of bladder cancer (heredity). Having had chemotherapy or radiation therapy to the pelvis. Having been exposed to arsenic. What are the signs or symptoms? Initial symptoms of this condition include: Blood in the urine. Painful urination. Frequent bladder or urine infections. Increase in urgency and frequency of urination. Advanced symptoms of this condition include: Not being able to urinate. Low back pain on one side. Loss of appetite. Weight loss. Fatigue. Swelling in the feet. Bone pain. How is this diagnosed? This condition is diagnosed based on your medical history, a physical exam, urine tests, lab tests, imaging tests, and your symptoms. You may also have other tests or procedures done, such as: A narrow tube being inserted into your bladder through your urethra (cystoscopy) in order to view the lining of your bladder for tumors. A biopsy to sample the tumor to see if cancer is present. If cancer is present, it will then be staged to determine its severity and extent. Staging is an assessment of: The size of the tumor. Whether the cancer has spread. Where the cancer has spread. It is important to know how deeply into the bladder wall cancer has grown and whether cancer has spread to any other parts of your body. Staging may require blood tests or imaging tests, such as a CT scan, MRI, bone scan, or chest X-ray. How is this treated? Based on the stage of cancer, one treatment or a combination of treatments may be recommended. The most common forms of treatment are: Surgery to remove the cancer. Procedures that may be done include transurethral resection and cystectomy. Radiation therapy. This is high-energy X-rays or other particles. This is often used in combination with chemotherapy. Chemotherapy. During this treatment, medicines are used to kill cancer cells. Immunotherapy. This uses medicines to help your own immune system destroy cancer cells. Follow these instructions at home: Take jkuv-mws-ekcyoye and prescription medicines only as told by your health care provider. Maintain a healthy diet. Some of your treatments might affect your appetite. Consider joining a support group. This may help you learn to cope with the stress of having bladder cancer. Tell your cancer care team if you develop side effects. They may be able to recommend ways to relieve them. Keep all follow-up visits as told by your health care provider. This is important. Where to find more information [place] [employer]: www.cancer.org National Cancer [place] (NCI): www.cancer.gov Contact a health care provider if: You have symptoms of a urinary tract infection. These include: ?Fever. ?Chills. ?Weakness. ?Muscle aches. ?Abdominal pain. ?Frequent and intense urge to urinate. ?Burning feeling in the bladder or urethra during urination. Get help right away if: There is blood in your urine. You cannot urinate. You have severe pain or other symptoms that do not go away. Summary Bladder cancer is an abnormal growth of tissue in the bladder. This condition is diagnosed based on your medical history, a physical exam, urine tests, lab tests, imaging tests, and your symptoms. Based on the stage of cancer, surgery, chemotherapy, or a combination of treatments may be recommended. Consider joining a support group. This may help you learn to cope with the stress of having bladder cancer. This information is not intended to replace advice given to you by your health care provider. Make sure you discuss any questions you have with your health care provider. Document Released: 03/27/2004 Document Revised: 03/07/2018 Document Reviewed: 02/26/2017 [employer] Patient Education 2019 [employer] [place]. Follow Up Care 03/29/2022 14:26:46 With:DANO SILVERIO, Dimitrios Lion, URL Address: [facility] [address] , [place] [address]- When: Unknown [facility] Hospital Discharg e instructions Patient Education 03/28/2022 12:43:14 Bladder Cancer Bladder Cancer Bladder cancer is an abnormal growth of tissue in the bladder. The bladder is the balloon-like sac in the pelvis. It collects and stores urine that comes from the kidneys through the ureters. The bladder wall is made of layers. If cancer spreads into these layers and through the wall of the bladder, it becomes more difficult to treat. What are the causes? The cause of this condition is not known. What increases the risk? The following factors may make you more likely to develop this condition: Smoking. Workplace risks (occupational exposures), such as rubber, leather, textile, dyes, chemicals, and paint. Being white. Your age. Most people with bladder cancer are over the age of 55. Being male. Having chronic bladder inflammation. Having a personal history of bladder cancer. Having a family history of bladder cancer (heredity). Having had chemotherapy or radiation therapy to the pelvis. Having been exposed to arsenic. What are the signs or symptoms? Initial symptoms of this condition include: Blood in the urine. Painful urination. Frequent bladder or urine infections. Increase in urgency and frequency of urination. Advanced symptoms of this condition include: Not being able to urinate. Low back pain on one side. Loss of appetite. Weight loss. Fatigue. Swelling in the feet. Bone pain. How is this diagnosed? This condition is diagnosed based on your medical history, a physical exam, urine tests, lab tests, imaging tests, and your symptoms. You may also have other tests or procedures done, such as: A narrow tube being inserted into your bladder through your urethra (cystoscopy) in order to view the lining of your bladder for tumors. A biopsy to sample the tumor to see if cancer is present. If cancer is present, it will then be staged to determine its severity and extent. Staging is an assessment of: The size of the tumor. Whether the cancer has spread. Where the cancer has spread. It is important to know how deeply into the bladder wall cancer has grown and whether cancer has spread to any other parts of your body. Staging may require blood tests or imaging tests, such as a CT scan, MRI, bone scan, or chest X-ray. How is this treated? Based on the stage of cancer, one treatment or a combination of treatments may be recommended. The most common forms of treatment are: Surgery to remove the cancer. Procedures that may be done include transurethral resection and cystectomy. Radiation therapy. This is high-energy X-rays or other particles. This is often used in combination with chemotherapy. Chemotherapy. During this treatment, medicines are used to kill cancer cells. Immunotherapy. This uses medicines to help your own immune system destroy cancer cells. Follow these instructions at home: Take [id number] and prescription medicines only as told by your health care provider. Maintain a healthy diet. Some of your treatments might affect your appetite. Consider joining a support group. This may help you learn to cope with the stress of having bladder cancer. Tell your cancer care team if you develop side effects. They may be able to recommend ways to relieve them. Keep all follow-up visits as told by your health care provider. This is important. Where to find more information [employer]: www.cancer.org [employer] [place] (NCI): www.cancer.gov Contact a health care provider if: You have symptoms of a urinary tract infection. These include: ?Fever. ?Chills. ?Weakness. ?Muscle aches. ?Abdominal pain. ?Frequent and intense urge to urinate. ?Burning feeling in the bladder or urethra during urination. Get help right away if: There is blood in your urine. You cannot urinate. You have severe pain or other symptoms that do not go away. Summary Bladder cancer is an abnormal growth of tissue in the bladder. This condition is diagnosed based on your medical history, a physical exam, urine tests, lab tests, imaging tests, and your symptoms. Based on the stage of cancer, surgery, chemotherapy, or a combination of treatments may be recommended. Consider joining a support group. This may help you learn to cope with the stress of having bladder cancer. This information is not intended to replace advice given to you by your health care provider. Make sure you discuss any questions you have with your health care provider. Document Released: 03/27/2004 Document Revised: 03/07/2018 Document Reviewed: 02/26/2017 [employer] Patient Education 2020 [employer] [place]. 03/28/2022 12:43:12 Calorie Counting for Weight Loss Calorie Counting for Weight Loss Calories are units of energy. Your body needs a certain amount of calories from food to keep you going throughout the day. When you eat more calories than your body needs, your body stores the extra calories as fat. When you eat fewer calories than your body needs, your body mahmood fat to get the energy it needs. Calorie counting means keeping track of how many calories you eat and drink each day. Calorie counting can be helpful if you need to lose weight. If you make sure to eat fewer calories than your body needs, you should lose weight. Ask your health care provider what a healthy weight is for you. For calorie counting to work, you will need to eat the right number of calories in a day in order to lose a healthy amount of weight per week. A dietitian can help you determine how many calories you need in a day and will give you suggestions on how to reach your calorie goal. A healthy amount of weight to lose per week is usually 1 2 lb (0.5 0.9 kg). This usually means that your daily calorie intake should be reduced by 500 750 calories. Eating 1,200 1,500 calories per day can help most women lose weight. Eating 1,500 1,800 calories per day can help most men lose weight. What is my plan? My goal is to have calories per day. If I have this many calories per day, I should lose around pounds per week. What do I need to know about calorie counting? In order to meet your daily calorie goal, you will need to: Find out how many calories are in each food you would like to eat. Try to do this before you eat. Decide how much of the food you plan to eat. Write down what you ate and how many calories it had. Doing this is called keeping a food log. To successfully lose weight, it is important to balance calorie counting with a healthy lifestyle that includes regular activity. Aim for 150 minutes of moderate exercise (such as walking) or 75 minutes of vigorous exercise (such as running) each week. Where do I find calorie information? The number of calories in a food can be found on a Nutrition Facts label. If a food does not have a Nutrition Facts label, try to look up the calories online or ask your dietitian for help. Remember that calories are listed per serving. If you choose to have more than one serving of a food, you will have to multiply the calories per serving by the amount of servings you plan to eat. For example, the label on a package of bread might say that a serving size is 1 slice and that there are 90 calories in a serving. If you eat 1 slice, you will have eaten 90 calories. If you eat 2 slices, you will have eaten 180 calories. How do I keep a food log? Immediately after each meal, record the following information in your food log: What you ate. Don't forget to include toppings, sauces, and other extras on the food. How much you ate. This can be measured in cups, ounces, or number of items. How many calories each food and drink had. The total number of calories in the meal. Keep your food log near you, such as in a small notebook in your pocket, or use a mobile erna or website. Some programs will calculate calories for you and show you how many calories you have left for the day to meet your goal. What are some calorie counting tips? Use your calories on foods and drinks that will fill you up and not leave you hungry: ?Some examples of foods that fill you up are nuts and nut butters, vegetables, lean proteins, and high-fiber foods like whole grains. High-fiber foods are foods with more than 5 g fiber per serving. ?Drinks such as sodas, specialty coffee drinks, alcohol, and juices have a lot of calories, yet do not fill you up. Eat nutritious foods and avoid empty calories. Empty calories are calories you get from foods or beverages that do not have many vitamins or protein, such as candy, sweets, and soda. It is better to have a nutritious high-calorie food (such as an avocado) than a food with few nutrients (such as a bag of chips). Know how many calories are in the foods you eat most often. This will help you calculate calorie counts faster. Pay attention to calories in drinks. Low-calorie drinks include water and unsweetened drinks. Pay attention to nutrition labels for low fat or fat free foods. These foods sometimes have the same amount of calories or more calories than the full fat versions. They also often have added sugar, starch, or salt, to make up for flavor that was removed with the fat. Find a way of tracking calories that works for you. Get creative. Try different apps or programs if writing down calories does not work for you. What are some portion control tips? Know how many calories are in a serving. This will help you know how many servings of a certain food you can have. Use a measuring cup to measure serving sizes. You could also try weighing out portions on a kitchen scale. With time, you will be able to estimate serving sizes for some foods. Take some time to put servings of different foods on your favorite plates, bowls, and cups so you know what a serving looks like. Try not to eat straight from a bag or box. Doing this can lead to overeating. Put the amount you would like to eat in a cup or on a plate to make sure you are eating the right portion. Use smaller plates, glasses, and bowls to prevent overeating. Try not to multitask (for example, watch TV or use your computer) while eating. If it is time to eat, sit down at a table and enjoy your food. This will help you to know when you are full. It will also help you to be aware of what you are eating and how much you are eating. What are tips for following this plan? Reading food labels Check the calorie count compared to the serving size. The serving size may be smaller than what you are used to eating. Check the source of the calories. Make sure the food you are eating is high in vitamins and protein and low in saturated and trans fats. Shopping Read nutrition labels while you shop. This will help you make healthy decisions before you decide to purchase your food. Make a grocery list and stick to it. Cooking Try to cook your favorite foods in a healthier way. For example, try baking instead of frying. Use low-fat dairy products. Meal planning Use more fruits and vegetables. Half of your plate should be fruits and vegetables. Include lean proteins like poultry and fish. How do I count calories when eating out? Ask for smaller portion sizes. Consider sharing an entree and sides instead of getting your own entree. If you get your own entree, eat only half. Ask for a box at the beginning of your meal and put the rest of your entree in it so you are not tempted to eat it. If calories are listed on the menu, choose the lower calorie options. Choose dishes that include vegetables, fruits, whole grains, low-fat dairy products, and lean protein. Choose items that are boiled, broiled, grilled, or steamed. Stay away from items that are buttered, battered, fried, or served with cream sauce. Items labeled crispy are usually fried, unless stated otherwise. Choose water, low-fat milk, unsweetened iced tea, or other drinks without added sugar. If you want an alcoholic beverage, choose a lower calorie option such as a glass of wine or light beer. Ask for dressings, sauces, and syrups on the side. These are usually high in calories, so you should limit the amount you eat. If you want a salad, choose a garden salad and ask for grilled meats. Avoid extra toppings like sen, cheese, or fried items. Ask for the dressing on the side, or ask for olive oil and vinegar or lemon to use as dressing. Estimate how many servings of a food you are given. For example, a serving of cooked rice is cup or about the size of half a baseball. Knowing serving sizes will help you be aware of how much food you are eating at restaurants. The list below tells you how big or small some common portion sizes are based on everyday objects: ?1 oz 4 stacked dice. ?3 oz 1 deck of cards. ?1 tsp 1 . ?1 Tbsp a ping-pong ball. ?2 Tbsp 1 ping-pong ball. ? cup baseball. ?1 cup 1 baseball. Summary Calorie counting means keeping track of how many calories you eat and drink each day. If you eat fewer calories than your body needs, you should lose weight. A healthy amount of weight to lose per week is usually 1 2 lb (0.5 0.9 kg). This usually means reducing your daily calorie intake by 500 750 calories. The number of calories in a food can be found on a Nutrition Facts label. If a food does not have a Nutrition Facts label, try to look up the calories online or ask your dietitian for help. Use your calories on foods and drinks that will fill you up, and not on foods and drinks that will leave you hungry. Use smaller plates, glasses, and bowls to prevent overeating. This information is not intended to replace advice given to you by your health care provider. Make sure you discuss any questions you have with your health care provider. Document Released: 03/25/2006 Document Revised: 12/12/2018 Document Reviewed: 02/22/2017 [employer] Patient Education 2020 [employer] Follow Up Care 03/20/2022 15:23:24 With:DAON SILVERIO, Dimitrios Lion, URL Address: [address] [place] [address] [place] [address]- Business (1) When: Unknown [facility] Davida 03-20-2022 Note EXAM: XR CHEST 2 V HISTORY: Pre-surgery evaluation COMPARISON: 10/28/2012 TECHNIQUE: Upright PA and lateral chest x-ray FINDINGS: The heart is not enlarged and the vasculature is not distended. No acute infiltrate, effusion or pneumothorax is identified. The osseous structures are grossly intact. IMPRESSION: No acute infiltrate or evidence of cardiac decompensation. The overall appearance of the chest is unchanged. Electronically authenticated by: BARBIE WESTFALL Date: 2022-03-20 19:46 [facility] 03-13-2022 Evaluation + Plan note Extrac otis from: Title:Urology Progress Note Author:Dave MATSON MD Date:03/13/22 Impression and Plan Impression: #1. This gentleman has a classic bladder tumor and this is the likely cause of his gross hematuria. 2. History of prostate cancer for which he had a radical prostatectomy and is doing very well. Plan: #1. He is getting scheduled for a TURBT and possible right ureteroscopy and stent placement under anesthesia. Future Appointments Appointment Date:04/20/2022 10:30:00 AM Scheduled Provider:Dimitrios MATSON MD Location:[facility] Appointment Type:URO Office Visit [facility] Hospital Discharge instructions Patient Education 03/13/2022 09:22:18 [facility] - Cystoscopy Discharge Instructions (CUSTOM) Cystoscopy Voiding after the procedure: there may be some pain, burning, urgency, frequency and blood tinged urine following the procedure. These symptoms usually resolve within 2-5 days. Drink the amount of fluid it takes to keep the urine pink to yellow or clear in color. Drinking enough water and fluids will help to ease any discomfort after your procedure. If you are having problems that seem out of the ordinary, please call. If unable to contact your physician and you feel it is an emergency, go to the nearest emergency room or call 911 Diet you may resume your normal diet. Activity you may resume your normal activities Call if you have a fever over 100 degrees. Follow Up Care 03/12/2022 11:53:47 With:Dimitrios MATSON Address: [facility] [address], [place] [address]- Business (1) When: Unknown Comments:Call for any problems. [facility] Hospital Discharge instructions Patient Education 03/12/2022 11:01:27 Hematuria, Adult Hematuria, Adult Hematuria is blood in the urine. Blood may be visible in the urine, or it may be identified with a test. This condition can be caused by infections of the bladder, urethra, kidney, or prostate. Otherpossible causes include: Kidney stones. Cancer of the urinary tract. Too much calcium in the urine. Conditions that are passed from parent to child (inherited conditions). Exercise that requires a lot of energy. Infections can usually be treated with medicine, and a kidney stone usually will pass through your urine. If neither of these is the cause of your hematuria, more tests may be needed to identify the cause of your symptoms. It is very important to tell your health care provider about any blood in your urine, even if it ispainless or the blood stops without treatment. Blood in the urine, when it happens and then stops and then happens again, can be a symptom of a very serious condition, including cancer. There is no pain in the initial stages of many urinary cancers. Follow these instructions at home: Medicines Take oncv-unl-nnoalnl and prescription medicines only as told by your health care provider. If you were prescribed an antibiotic medicine, take it as told by your health care provider. Do notstop taking the antibiotic even if you start to feel better. Eating and drinking Drink enough fluid to keep your urine clear or pale yellow. It is recommended that you drink 3 4 quarts (2.8 3.8 L) a day. If you have been diagnosed with an infection, it is recommended that you drink cranberry juice in addition to large amounts of water. Avoid caffeine, tea, and carbonated beverages. These tend to irritate the bladder. Avoid alcohol because it may irritate the prostate (men). General instructions If you have been diagnosed with a kidney stone, follow your health care provider's instructions about straining your urine to catch the stone. Empty your bladder often. Avoid holding urine for long periods of time. If you are female: ?After a bowel movement, wipe from front to back and use each piece of toilet paper only once. ?Empty your bladder before and after sex. Pay attention to any changes in your symptoms. Tell your health care provider about any changes or any new symptoms. It is your responsibility to get your test results. Ask your health care provider, or the department performing the test, when your results will be ready. Keep all follow-up visits as told by your health care provider. This is important. Contact a health care provider if: You develop back pain. You have a fever. You have nausea or vomiting. Your symptoms do not improve after 3 days. Your symptoms get worse. Get help right away if: You develop severe vomiting and are unable take medicine without vomiting. You develop severe pain in your back or abdomen even though you are taking medicine. You pass a large amount of blood in your urine. You pass blood clots in your urine. You feel very weak or like you might faint. You faint. Summary Hematuria is blood in the urine. It has many possible causes. It is very important that you tell your health care provider about any blood in your urine, even ifit is painless or the blood stops without treatment. Take dlmu-suc-sywxubg and prescription medicines only as told by your health care provider. Drink enough fluid to keep your urine clear or pale yellow. This information is not intended to replace advice given to you by your health care provider. Make sure you discuss any questions you have with your health care provider. Document Released: 03/25/2006 Document Revised: 08/19/2019 Document Reviewed: 04/27/2017 [employer] Patient Education 2020 [employer] [place]. Follow Up Care 05/12/2021 13:26:15 With:DANO SILVERIO, Dimitrios Lion, URL Address: [facility] [address], [place] [address]- When: Unknown Comments:schedule cysto [facility] evaluation + Plan note Future Appointments Appointment Date:03/13/2022 08:45:00 AM Scheduled Provider: Location:[facility] Appointment Type:Urology FT Diagnostic Tests Pending * [facility] Fish and Urine Cyto ([facility]) 03/12/22 [facility] evaluation + Plan note Future Appointments Appointment Date:04/30/2022 12:15:00 PM Scheduled Provider:Dimitrios MATSON MD Location:[facility] Appointment Type:URO Office Visit [facility] evaluation + Plan note Future Appointments Appointment Date:05/15/2022 12:15:00 PM Scheduled Provider: Location:[facility] Appointment Type:Urology CALL PAT FT Appointment Date:05/22/2022 10:45:00 AM Scheduled Provider: Location:[facility] Appointment Type:Urology FT [facility] [place] evaluation + Plan note Future Appointments Appointment Date:05/15/2022 12:15:00 PM Scheduled Provider: Location:[facility] Appointment Type:Urology CALL PAT FT Appointment Date:05/22/2022 10:45:00 AM Scheduled Provider: Location:[facility] Appointment Type:Urology FT Diagnostic Tests Pending * Urine Culture 05[facility]14/22 [facility] Diagnosis Malignant neoplasm of overlapping sites of bladder (HCC)- Primary Malignant neoplasm of other specified sites of bladder [facility] Diagnosis Malignant neoplasm of overlapping sites of bladder (HCC)- Primary Malignant neoplasm of other specified sites of bladder [facility] Diagnosis Malignant neoplasm of overlapping sites of bladder (HCC)- Primary Malignant neoplasm of other specified sites of bladder Malignant neoplasm of prostate (HCC) Malignant neoplasm of prostate [facility] Diagnosis Screening for genitourinary condition- Primary Screening for other and unspecified genitourinary condition [facility] Diagnosis Malignant neoplasm of overlapping sites of bladder (HCC) Malignant neoplasm of other specified sites of bladder [facility] Diagnosis Screening for genitourinary condition Screening for other and unspecified genitourinary condition [facility] Diagnosis Malignant neoplasm of prostate (HCC)- Primary Malignant neoplasm of prostate [facility] Diagnosis Malignant neoplasm of overlapping sites of bladder (HCC)- Primary Malignant neoplasm of other specified sites of bladder [facility] Diagnosis Malignant neoplasm of overlapping sites of bladder (HCC)- Primary Malignant neoplasm of other specified sites of bladder [facility] Diagnosis Malignant neoplasm of overlapping sites of bladder (HCC) Malignant neoplasm of other specified sites of bladder [facility] Diagnosis Dysuria- Primary [facility] Diagnosis Malignant neoplasm of overlapping sites of bladder (HCC) Malignant neoplasm of other specified sites of bladder documented in this encounter [facility] note* Diagnosis Malignant neoplasm of overlapping sites of bladder (HCC) Malignant neoplasm of other specified sites of bladder [facility] Diagnosis Encounter for replacement of urinary catheter- Primary Fitting and adjustment of urinary device documented in this encounter [facility] note* Diagnosis Malignant neoplasm of overlapping sites of bladder (HCC)- Primary Malignant neoplasm of other specified sites of bladder [facility] Diagnosis Screening for genitourinary condition Screening for other and unspecified genitourinary condition documented in this encounter [facility] note* Diagnosis Inflamed sebaceous cyst- Primary [facility] Diagnosis Inflamed sebaceous cyst [facility] this encounter [facility] Diagnosis Cutaneous abscess of back excluding buttocks- Primary [facility] in this encounter [facility] Diagnosis Vertigo- Primary Dizziness and giddiness Vertigo Dizziness and giddiness documented in this encounter [facility] Diagnosis Anxiety Anxiety state, unspecified documented in this encounter [facility] Diagnosis Malignant neoplasm of overlapping sites of bladder (HCC) Malignant neoplasm of other specified sites of bladder [facility] Diagnosis Infected epidermoid cyst- [facility] Diagnosis Anxiety Anxiety state, unspecified documented in this encounter [facility] Diagnosis Malignant neoplasm of overlapping sites of bladder (HCC)- Primary Malignant neoplasm of other specified sites of bladder [facility] Diagnosis Malignant neoplasm of overlapping sites of bladder (HCC) Malignant neoplasm of other specified sites of bladder documented in this [facility] Diagnosis Malignant neoplasm of overlapping sites of bladder (HCC) Malignant neoplasm of other specified sites of bladder documented in this [facility] Diagnosis Malignant neoplasm of overlapping sites of bladder (HCC)- Primary Malignant neoplasm of other specified sites of bladder 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) documented [facility] this [facility] Diagnosis Malignant neoplasm of overlapping sites of bladder (HCC)- Primary Malignant neoplasm of other specified sites of bladder Flank pain Abdominal pain, unspecified site [facility] this [facility] Diagnosis Anxiety Anxiety state, unspecified documented in this encounter [facility] Diagnosis Malignant neoplasm of urinary bladder, unspecified site (HCC)- Primary [facility] Diagnosis RICKI (obstructive sleep apnea)- Primary Obstructive sleep apnea (adult) (pediatric) CPAP use counseling Psychophysiological insomnia Persistent disorder of initiating or maintaining sleep Overweight (BMI 25.0-29.9) Overweight documented in this encounter [facility]* Diagnosis Anxiety Anxiety state, unspecified documented [facility] this [facility] Narrative No data available for this section [facility] Hospital Discharge instructions No data available for this section [facility] InstructionsNot on filedocumented in this encounter [facility] filedocumented in this encounter [facility] filedocumented in this encounter [facility] on filedocumented in this encounter [facility] filedocumented in this encounter [facility] on filedocumented in this encounter [facility] on filedocumented in this encounter [facility] No data available for this section [facility] reason for referral (narrative)* Diagnostic Procedure Only (Routine) - Pending Review Specialty Diagnoses / Procedures Referred By Josselin calles Referred To Contact US IMAGING Diagnoses Screening for genitourinary condition Procedures US KIDNEY/BLADDER US RETROPERITONEAL REAL TIME W/IMAGE COMPLETE [place] [address] Us Imaging Referral ID Status Reason Start Date Expiration Date Visits Requested Visits Authorized [id number] Pending Review Auto-Generat ed Referral 10/10/2022 11/09/2023 1 1 [facility] for referral (narrative)* Diagnostic Procedure Only (Routine) - Closed Specialty Diagnoses / Procedures Referred By Contac t Referred To Contact US IMAGING Diagnoses Screening for genitourinary condition Procedures US KIDNEY/BLADDER US RETROPERITONEAL REAL TIME W/IMAGE COMPLETE Kenisha Segura APRN.CNP [phone] [place] [address] Referral ID Status Reason Start Date Expiration Date V isits Requested Visits Authorized [id number] Closed Auto-Generate d Referral 10/10/2022 11/09/2023 1 1 [facility] for referral (narrative)* Diagnostic Procedure Only (Routine) - New Request Specialty Diagnoses / Procedures Referred By Contac t Referred To Contact US IMAGING Diagnoses Flank pain Procedures US KIDNEY/BLADDER US RETROPERITONEAL REAL TIME W/IMAGE COMPLETE Kannan Jarvis MD [phone] [place] [address] Referral ID Status Reason Start Date Expiration Date Visits Requested Visits Authorized [id number] New Request Auto-Generat ed Referral 11/15/2023 12/14/2024 1 1 [facility] for visit Narrative* Diagnostic Procedure Only (Routine) - Closed Specialty Diagnoses / Procedures Referred By Contac t Referred To Contact US IMAGING Diagnoses Screening for genitourinary condition Procedures US KIDNEY/BLADDER US RETROPERITONEAL REAL TIME W/IMAGE COMPLETE Kenisha Segura APRN.CNP [address] [place] [address] [place] [address] Referral ID Status Reason Start Date Expiration Date V isits Requested Visits Authorized [id number] Closed Auto-Generate d Referral 10/10/2022 11/09/2023 1 1 [facility] Summary Purpose Family History No Family History Records FoundNo Family History Records FoundNo Family History Records FoundNo Family History Records FoundNo Family History Records FoundNo Family History Records FoundNo Family History Records Found Advance Directives Latest Code Status on File Code Status Date Activated Date Inactivated Comments Full Code 01/02/2023 4:23 PM 01/04/2023 12:39 PM Code Status History Code Status Date Activated Date Inactivated Comments Full Code 10/06/2017 12:40 PM 10/18/2017 7:08 PM Full Code 10/14/2016 11:26 AM 10/15/2016 8:07 PM Latest Code Status on File Code Status Date Activated Date Inactivated Comments Full Code 01/02/2023 4:23 PM 01/04/2023 12:39 PM Code Status History Code Status Date Activated Date Inactivated Comments Full Code 10/06/2017 12:40 PM 10/18/2017 7:08 PM Full Code 10/14/2016 11:26 AM 10/15/2016 8:07 PM Date Activated Date Inactivated Comments 01/02/2023 4:23 PM 01/04/2023 12:39 PM Date Activated Date Inactivated Comments 10/06/2017 12:40 PM 10/18/2017 7:08 PM Date Activated Date Inactivated Comments 10/14/2016 11:26 AM 10/15/2016 8:07 PM Date Activated Date Inactivated Comments 01/02/2023 4:23 PM 01/04/2023 12:39 PM Date Activated Date Inactivated Comments 10/06/2017 12:40 PM 10/18/2017 7:08 PM Date Activated Date Inactivated Comments 10/14/2016 11:26 AM 10/15/2016 8:07 PM Medications Administered Section Inactive Administered Medications - up to 3 most recent administrations Medication Order MAR Action Action Date Dose Rate Site gentamicin 40 mg/mL 120 mg injection 120 mg, INTRAMUSCULAR, ONCE (UP TO 30 DAYS AMB), 1 dose, On Sat10/10/22 at 1330, Please document the antimicrobial indication: Empiric Given 10/10/2022 2:10 PM EDT 120 mg Buttocks, Right Inactive Administered Medications - up to 3 most recent administrations Medication Order MAR Action Action Date Dose Rate Site bcg 50 mg in NaCl 0.9% 50 mL 50 mg, INTRAVESICAL, ONCE, 1 dose, On Sat11/14/22 at 1030, Instill into bladder via catheter and retain for 120 minutes, followed by bladder drainage Hazardous Chemotherapy Drug: Use appropriate PPE. Protect from Light., AMB MED ORDERS Given 11/14/2022 10:52 AM EDT 50 mg Inactive Administered Medications - up to 3 most recent administrations Medication Order [facility] Dose Rate Site bcg 50 mg in NaCl 0.9% 50 mL 50 mg, INTRAVESICAL, ONCE, 1 dose, On Sat11/21/22 at 1330, Instill into bladder via catheter and retain for 120 minutes, followed by bladder drainage Hazardous Chemotherapy Drug: Use appropriate PPE. Protect from Light., AMB MED ORDERS Given 11/21/2022 1:40 PM EDT 50 mg Inactive Administered Medications - up to 3 most recent administrations Medication Order [facility] Dose Rate Site bcg 50 mg in NaCl 0.9% 50 mL 50 mg, INTRAVESICAL, ONCE, 1 dose, On Sat11/28/22 at 1330, Instill into bladder via catheter and retain for 120 minutes, followed by bladder drainage Hazardous Chemotherapy Drug: Use appropriate PPE. Protect from Light., AMB MED ORDERS Given 11/28/2022 1:33 PM EDT 50 mg Inactive Administered Medications - up to 3 most recent administrations Medication Order [facility] Dose Rate Site bcg 50 mg in NaCl 0.9% 50 mL 50 mg, INTRAVESICAL, ONCE, 1 dose, On Sat12/05/22 at 1330, Instill into bladder via catheter and retain for 120 minutes, followed by bladder drainage Hazardous Chemotherapy Drug: Use appropriate PPE. Protect from Light., AMB MED ORDERS Given 12/05/2022 1:39 PM EDT 50 mg Inactive Administered Medications - up to 3 most recent administrations Medication Order [facility] Dose Rate Site bcg 50 mg in NaCl 0.9% 50 mL 50 mg, INTRAVESICAL, ONCE, 1 dose, On Sat12/19/22 at 1330, Instill into bladder via catheter and retain for 120 minutes, followed by bladder drainage Hazardous Chemotherapy Drug: Use appropriate PPE. Protect from Light., AMB MED ORDERS Given 12/19/2022 1:38 PM EDT 50 mg Reason for Referral Specialty Diagnoses / Procedures Referred By Josselin calles Referred To Contact Radiology Diagnoses Vertigo Central positional vertigo Procedures CT brain without contrast Katherin Sterling MD [facility], [address] [place] [address] Referral ID Status Reason Start Date Expiration Date V isits Requested Visits Authorized [id number] Pending Review 05/02/2023 05/01/2024 1 1 Additional Source Comments (unrecognized sect ion and content) No Status Records FoundNo Status Records FoundNo Status Records FoundNo Status Records FoundNo Status Records FoundNo Status Records FoundNo Status Records Found INFORMATION SOURCE (unrecogn ized section and content) DATE CREATED AUTHOR 10/25/2017 [facility] DATE CREATED AUTHOR AUTHOR'S ORGANIZ ATION 06/26/2022 [facility] DATE CREATED AUTHOR AUTHOR'S ORGANIZ ATION 01/30/2023 [facility] DATE CREATED AUTHOR AUTHOR'S ORGANIZ ATION 08/24/2023 [facility] DATE CREATED AUTHOR AUTHOR'S ORGANIZ ATION 08/25/2023 [facility] DATE CREATED AUTHOR AUTHOR'S ORGANIZ ATION 03/05/2024 [facility] DATE CREATED AUTHOR AUTHOR'S ORGANIZ ATION 03/21/2024 [facility] Patient Care team informatio n (unrecognized section and content) Feed In Worker Relationship Specialty Start Date End Date Dimitrios Matson MD [address] [place] [address] Urology 09/12/22 Katherin Sterling [address] [place] [address], [address] [place] [address] Internal Medicine 09/12/22 Feed In Worker Relationship Specialty Start Date End Date Katherin Sterling [address] [place] [address], [address] [place], [place] [id number] PCP - General Internal Medicine 09/13/22 Dimitrios Matson MD [address] [place] [address] Urology 09/12/22 [facility] [address], [address] [place] [address] Internal Medicine 09/12/22 Ismael Stubbs MD [address] [place] [address] Physician Hematology/Oncology 09/14/22 Gerda Valentino, BAR ASSISTANT.DEICER KIT ASSEMBLER [address] [place] [place] [address] Nurse Practitioner Hematology/Oncology 09/14/22 Amanda Merritt, WYATT [address] [place] [address] Specialty Women Specialist Hematology/Oncology 09/14/22 Feed In Worker Relationship Specialty Start Date End Date [facility] [address], [address] [place] [address] PCP - General Internal Medicine 09/13/22 Dimitrios Matson MD [address] [facility] [place] [address] Urology 09/12/[address], [address] [place] [address] Internal Medicine 09/12/22 Ismael Stubbs MD [address] [place] [address] Physician Hematology/Oncology 09/14/22 Gerda Valentino, BAR ASSISTANT.DEICER KIT ASSEMBLER [address] [place] [address] Nurse Practitioner Hematology/Oncology 09/14/22 Amanda Merritt, WYATT [address] [place] [address] Specialty Women Specialist Hematology/Oncology 09/14/22 Feed In Worker Relationship Specialty Start Date End Date [address], [address] [place] [address] PCP - General Internal Medicine 09/13/22 Dimitrios Matson MD [address] [place] [address] Urology 09/12/[address], [address] [place] [address] Internal Medicine 09/12/22 Ismael Stubbs MD [address] [place] [address] Physician Hematology/Oncology 09/14/22 Gerda Valentino, BAR ASSISTANT.DEICER KIT ASSEMBLER [address] [place] [address] Nurse Practitioner Hematology/Oncology 09/14/22 Amanda Merritt, RN [address] [place] [address] Specialty Women Specialist Hematology/Oncology 09/14/22 Feed In Worker Relationship Specialty Start Date End Date [address], [address] [place] [address] PCP - General Internal Medicine 09/13/22 Dimitrios Matson MD [address] [place] [address] Urology 09/12/[address], [address] [place] [address] Internal Medicine 09/12/22 Ismael Stubbs MD [address] [place] [address] Physician Hematology/Oncology 09/14/22 Gerda Valentino, BAR ASSISTANT.[address] [place] [address] Nurse Practitioner Hematology/Oncology 09/14/22 Amanda Merritt, WYATT [address] [place] [address] [place] [address] Specialty Women Specialist Hematology/Oncology 09/14/22 Feed In Worker Relationship Specialty Start Date End Date [facility] [address], [address] [place] [address] PCP - General Internal Medicine 09/13/22 Dimitrios Matson MD [address] [place] [address] Urology 09/12/[address], [address] [place] [address] Internal Medicine 09/12/22 Ismael Stubbs MD [address] [place] [address] Physician Hematology/Oncology 09/14/22 Gerda Valentino, BAR ASSISTANT.DEICER KIT ASSEMBLER [address] [place] [address] [place] [address] Nurse Practitioner Hematology/Oncology 09/14/22 Amanda Merritt, WYATT [address] [place] [address] [place] [address] Specialty Women Specialist Hematology/Oncology 09/14/22 Feed In Worker Relationship Specialty Start Date End Date [facility] [address], [address] [place] [address] PCP - General Internal Medicine 09/13/22 Dimitrios Matson MD [address] [place] [address] Urology 09/12/[address], [address] [place] [address] Internal Medicine 09/12/22 Ismael Stubbs MD [address] [place] [address] Physician Hematology/Oncology 09/14/22 Gerda Valentino, BAR ASSISTANT.DEICER KIT ASSEMBLER [address] [place] [address] Nurse Practitioner Hematology/Oncology 09/14/22 Amanda Merritt, WYATT [address] [place] [address] Specialty Women Specialist Hematology/Oncology 09/14/22 Feed In Worker Relationship Specialty Start Date End Date [address], [address] [place] [address] PCP - General Internal Medicine 09/13/22 Dimitrios Matson MD [address] [place] [address] Urology 09/12/[address], [address] [place] [address] Internal Medicine 09/12/22 Ismael Stubbs MD [address] [place] [address] Physician Hematology/Oncology 09/14/22 Gerda Valentino, BAR ASSISTANT.DEICER KIT ASSEMBLER [address] [place] [address] Nurse Practitioner Hematology/Oncology 09/14/22 Amanda Merritt, WYATT [address] [place] [address] [place] [address] Specialty Women Specialist Hematology/Oncology 09/14/22 Feed In Worker Relationship Specialty Start Date End Date [facility] [address], [address] [place] [address] PCP - General Internal Medicine 09/13/22 Dimitrios Matson MD [address] [place] [address] Urology 09/12/[address], [address] [place] [address] Internal Medicine 09/12/22 Ismael Stubbs MD [address] [place] [address] Physician Hematology/Oncology 09/14/22 Gerda Valentino, BAR ASSISTANT.[address] [place] [place] [address] Nurse Practitioner Hematology/Oncology 09/14/22 Amanda Merritt, WYATT [address] [place] [address] [place] [address] Specialty Women Specialist Hematology/Oncology 09/14/22 Feed In Worker Relationship Specialty Start Date End Date [facility] [address], [address] [place] [address] PCP - General Internal Medicine 09/13/22 Dimitrios Matson MD [address] [place] [address] Urology 09/12/22 Katherin Sterling [address] [place] [address], [address] [place] [address] Internal Medicine 09/12/22 Ismael Stubbs MD [address] [facility] [place] [address] Physician Hematology/Oncology 09/14/22 Gerda Valentino, BAR ASSISTANT.DEICER KIT ASSEMBLER [address] [facility] [place] [address] Nurse Practitioner Hematology/Oncology 09/14/22 Amanda Merritt, WYATT [address] [place] [address] [place] [address] Specialty Women Specialist Hematology/Oncology 09/14/22 Feed In Worker Relationship Specialty Start Date End Date Katherin Sterling [address] [place] [address], [address] [place] [address] PCP - General Internal Medicine 09/13/22 Dimitrios Matson MD [address] [place] [address] Urology 09/12/22 Katherin Sterling [address] [place] [address], [address] [place] [address] Internal Medicine 09/12/22 Ismael Stubbs MD [address] [place] [address] [place] [address] Physician Hematology/Oncology 09/14/22 Gerda Valentino, BAR ASSISTANT.DEICER KIT ASSEMBLER [address] [place] [address] [place] [address] Nurse Practitioner Hematology/Oncology 09/14/22 Amanda Merritt, WYATT [address] [facility] [place] [address] Specialty Women Specialist Hematology/Oncology 09/14/22 Feed In Worker Relationship Specialty Start Date End Date Katherin Sterling [address] [place] [address], [address] [place] [address] PCP - General Internal Medicine 09/13/22 Dimitrios Matson MD [address] [place] [address] Urology 09/12/22 Katherin Sterling [address] [place] [address], [address] [place] [address] Internal Medicine 09/12/22 Ismael Stubbs MD [address] [place] [address] [place] [address] Physician Hematology/Oncology 09/14/22 Gerda Valentino APRN.DEICER KIT ASSEMBLER [address] [place] [address] [place] [address] Nurse Practitioner Hematology/Oncology 09/14/22 Amanda Merritt RN [address] [facility] [place] [address] Specialty Women Specialist Hematology/Oncology 09/14/22 Feed In Worker Relationship Specialty Start Date End Date Katherin Sterling [address] [place] [address], [address] [place] [address] PCP - General Internal Medicine 09/13/22 Dimitrios Matson MD [address] [place] [address] Urology 09/12/22 Katherin Sterling [address] [place] [address], [address] [place], [place] [address] Internal Medicine 09/12/22 Ismael Stubbs MD [address] [facility] [place] [address] Physician Hematology/Oncology 09/14/22 Gerda Valentino, BAR ASSISTANT.DEICER KIT ASSEMBLER [address] [facility] [place] [address] Nurse Practitioner Hematology/Oncology 09/14/22 Amanda Merritt, WYATT [address] [place] [address] Specialty Women Specialist Hematology/Oncology 09/14/22 Feed In Worker Relationship Specialty Start Date End Date Katherin Sterling [address] [place] [address], [address] [place], [place] [address] PCP - General Internal Medicine 09/13/22 Dimitrios Matson MD [address] [place] [address] Urology 09/12/22 Katherin Sterling [address] [place] [address], [address] [place] [address] Internal Medicine 09/12/22 Ismael Stubbs MD [address] [facility] [facility] [place] [address] Physician Hematology/Oncology 09/14/22 Gerda Valentino, BAR ASSISTANT.DEICER KIT ASSEMBLER [address] [place] [address] Nurse Practitioner Hematology/Oncology 09/14/22 Amanda Merritt, RN [address] [facility] [place] [address] Specialty Women Specialist Hematology/Oncology 09/14/22 Feed In Worker Relationship Specialty Start Date End Date Katherin Sterling [address] [place] [address], [address] [place] [address] PCP - General Internal Medicine 09/13/22 [place] [address] [place], [place] [address]je[address] [place] [address] Urology 09/12/22 Hallie Katherin Zarco [address] [place] [address], [address] [place] [address] Internal Medicine 09/12/22 Ismael Stubbs MD [address] [place] [address] [place] [address] Physician Hematology/Oncology 09/14/22 Gerda Valentino APRN.DEICER KIT ASSEMBLER [address] [place] [address] [place] [address] Nurse Practitioner Hematology/Oncology 09/14/22 Amanda Merritt, WYATT [address] [facility] [facility] [place] [address] Specialty Women Specialist Hematology/Oncology 09/14/22 Feed In Worker Relationship Specialty Start Date End Date Katherin Sterling [address] [place] [address], [address] [place] [address] PCP - General Internal Medicine 09/13/22 Dimitrios Matson MD [address] [place] [address] Urology 09/12/22 Katherin Sterling [address] [place] [address], [address] [place], [place] [address] Internal Medicine 09/12/22 Ismael Stubbs MD [address] [facility] [place] [address] Physician Hematology/Oncology 09/14/22 Gerda Valentino APRN.DEICER KIT ASSEMBLER [address] [place] [place] [address] Nurse Practitioner Hematology/Oncology 09/14/22 Amanda Merritt, WYATT [address] [place] [address] Specialty Women Specialist Hematology/Oncology 09/14/22 Feed In Worker Relationship Specialty Start Date End Date Katherin Sterling [address] [place] [address], [address] [place], [place] [id number] PCP - General Internal Medicine 09/13/22 Dimitrios Matson MD [address] [place] [address] Urology 09/12/22 Katherin Sterling [address] [place] [address], [address] [place] [address] Internal Medicine 09/12/22 Ismael Stubbs MD [address] [place] [place] [address] Physician Hematology/Oncology 09/14/22 Gerda Valentino, BAR ASSISTANT.DEICER KIT ASSEMBLER [address] [place] [place] [address] Nurse Practitioner Hematology/Oncology 09/14/22 Amanda Merritt, RN [address] [place] [address] Specialty Women Specialist Hematology/Oncology 09/14/22 Feed In Worker Relationship Specialty Start Date End Date Hallie Katherin Haroldo [address] [place] [address], [address] [place], [place] [id number] PCP - General Internal Medicine 09/13/22 [place] [address] [place] [address] [place] [address] Urology 09/12/22 Katherin Sterling [address] [place] [address], [address] [place], [place] [address] Internal Medicine 09/12/22 Ismael Stubbs MD [address] [place] [place] [address] Physician Hematology/Oncology 09/14/22 Gerda Valentino, BAR ASSISTANT.DEICER KIT ASSEMBLER [address] [place] [place] [address] Nurse Practitioner Hematology/Oncology 09/14/22 Amanda Merritt, RN [address] [place] [place] [address] Specialty Women Specialist Hematology/Oncology 09/14/22 Feed In Worker Relationship Specialty Start Date End Date Katherin Sterling [address] [place] [address], [address] [place] [address] PCP - General Internal Medicine 09/13/22 Dimitrios Matson MD [address] [place] [address] Urology 09/12/22 LaKatherin clark [address] [place] [address], [address] [place] [address] Internal Medicine 09/12/22 Ismael Stubbs MD [address] [place] [address] [place] [address] Physician Hematology/Oncology 09/14/22 Gerda Valentino APRN.DEICER KIT ASSEMBLER [address] [place] [address] [place] [address] Nurse Practitioner Hematology/Oncology 09/14/22 Amanda Merritt, WYATT [address] [place] [address] [place] [address] Specialty Women Specialist Hematology/Oncology 09/14/22 Feed In Worker Relationship Specialty Start Date End Date Katherin Sterling [address] [place] [address], [address] [place] [address] PCP - General Internal Medicine 09/13/22 Dimitrios Matson MD [address] [place] [address] Urology 09/12/22 Katherin Sterling [address] [place] [address], [address] [place] [address] Internal Medicine 09/12/22 Ismael Stubbs MD [address] [facility] [place] [address] Physician Hematology/Oncology 09/14/22 Gerda Valentino, BAR ASSISTANT.DEICER KIT ASSEMBLER [address] [place] [place] [address] Nurse Practitioner Hematology/Oncology 09/14/22 Amanda Merritt, WYATT [address] [facility] [place] [address] Specialty Women Specialist Hematology/Oncology 09/14/22 Feed In Worker Relationship Specialty Start Date End Date Katherin Sterling [address] [place] [address], [address] [place], [place] [id number] PCP - General Internal Medicine 09/13/22 Dimitrios Matson MD [address] [place] [address] Urology 09/12/22 Hallie Katherin Zarco [address] [place] [address], [address] [place], [place] [id number] Internal Medicine 09/12/22 Ismael Stubbs MD [address] [facility] [place] [address] Physician Hematology/Oncology 09/14/22 Gerda Valentino, BAR ASSISTANT.DEICER KIT ASSEMBLER [address] [facility] [place] [address] Nurse Practitioner Hematology/Oncology 09/14/22 Amanda Merritt, WYATT [address] [facility] [place] [address] Specialty Women Specialist Hematology/Oncology 09/14/22 Feed In Worker Relationship Specialty Start Date End Date Katherin Sterling MD [address] [place] [address], [address] [place] [address] PCP - General Pediatrics 10/14/16 Feed In Worker Relationship Specialty Start Date End Date Katherin Sterling MD [address] [place] [address], [address] [place] [address] PCP - General Pediatrics 10/14/16 Feed In Worker Relationship Specialty Start Date End Date Katherin Sterling MD [address] [place] [address], [address] [place] [address] PCP - General Pediatrics 10/14/16 Feed In Worker Relationship Specialty Start Date End Date Katherin Sterling MD [address] [place] [address], [address] [place] [address] PCP - General Pediatrics 10/14/16 Feed In Worker Relationship Specialty Start Date End Date Katherin Sterling MD [address] [place] [address], [address] [place] [address] PCP - General Pediatrics 10/14/16 Feed In Worker Relationship Specialty Start Date End Date Katherin Sterling [address] [place] [address], [address] [place] [address] PCP - General Internal Medicine 09/13/22 Dimitrios Matson MD [address] [place] [address] Urology 09/12/22 Katherin Sterling [address] [place] [address], [address] [place] [address] Internal Medicine 09/12/22 Ismael Stubbs MD [address] [place] [address] [place] [address] Physician Hematology/Oncology 09/14/22 Gerda Valentino, BAR ASSISTANT.DEICER KIT ASSEMBLER [address] [facility] [place] [address] Nurse Practitioner Hematology/Oncology 09/14/22 Amanda Merritt, WYATT [address] [facility] [place] [address] Specialty Women Specialist Hematology/Oncology 09/14/22 Feed In Worker Relationship Specialty Start Date End Date Hallie Katherin Haroldo [address] [place] [address], [address] [place] [address] PCP - General Internal Medicine 09/13/22 Dimitrios Matson MD [address] [place] [address] Urology 09/12/22 Katherin Sterling [address] [place] [address], [address] [place] [address] Internal Medicine 09/12/22 Ismael Stubbs MD [address] [place] [address] [place] [address] Physician Hematology/Oncology 09/14/22 Gerda Valentino, BAR ASSISTANT.DEICER KIT ASSEMBLER [address] [facility] [place] [address] Nurse Practitioner Hematology/Oncology 09/14/22 Amanda Merritt, WYATT [address] [facility] [place] [address] Specialty Women Specialist Hematology/Oncology 09/14/22 Feed In Worker Relationship Specialty Start Date End Date Katherin Sterling MD [address] [place] [address], [address] [place] [address] PCP - General Pediatrics 10/14/16 Feed In Worker Relationship Specialty Start Date End Date Katherin Sterling MD [address] [place] [address], [address] [place] [address] PCP - General Pediatrics 10/14/16 Feed In Worker Relationship Specialty Start Date End Date [facility] [address] [place] [address], [address] [place] [address] PCP - General Internal Medicine 09/13/22 Dimitrios Matson MD [address] [facility] [place] [address] Urology 09/12/22 [facility] [address] [place] [address], [address] [place] [address] Internal Medicine 09/12/22 Ismael Stubbs MD [address] [facility] [place] [address] Physician Hematology/Oncology 09/14/22 Gerda Valentino APRN.DEICER KIT ASSEMBLER [address] [facility] [place] [address] Nurse Practitioner Hematology/Oncology 09/14/22 Amanda Merritt, WYATT [address] [facility] [place] [address] Specialty Women Specialist Hematology/Oncology 09/14/22 Feed In Worker Relationship Specialty Start Date End Date Katherin Sterling MD [address] [place] [address], [address] [place], [place] [id number] PCP - General Internal Medicine 09/13/22 Dimitrios Matson MD [address] [place] [address] Urology 09/12/22 Katherin Sterling MD [address] [place] [address], [address] [place] [address] Internal Medicine 09/12/22 Ismael Stubbs MD [address] [place] [address] [place] [address] Physician Hematology/Oncology 09/14/22 Gerda Valentino APRN.DEICER KIT ASSEMBLER [address] [place] [address] [place] [address] Nurse Practitioner Hematology/Oncology 09/14/22 Feed In Worker Relationship Specialty Start Date End Date Katherin Sterling MD [address] [place] [address], [address] [place], [place] [id number] PCP - General Pediatrics 10/14/16 Source Comments (unrecognize d section and content) In the event this informatio n is protected by the Federal Confidentiality of Alcohol and Drug Abuse Patient Records regulations: The Federal rules restrict any use of the information to criminally investigate or prosecute any alcohol or drug abuse patient.[facility] the event this information is protected by the Federal Confidentiality of Alcohol and Drug Abuse Patient Records regulations: The Federal rules restrict any use of the information to criminally investigate or prosecute any alcohol or drug abuse patient.[facility] Hospital[facility] the event this information is protected by the Federal Confidentiality of Alcohol and Drug Abuse Patient Records regulations: The Federal rules restrict any use of the information to criminally investigate or prosecute any alcohol or drug abuse patient.[facility] HospitalIn the event this information is protected by the Federal Confidentiality of Alcohol and Drug Abuse Patient Records regulations: The Federal rules restrict any use of the information to criminally investigate or prosecute any alcohol or drug abuse patient.[facility]In the event this information is protected by the Federal Confidentiality of Alcohol and Drug Abuse Patient Records regulations: The Federal rules restrict any use of the information to criminally investigate or prosecute any alcohol or drug abuse patient.[facility] HospitalIn the event this information is protected by the Federal Confidentiality of Alcohol and Drug Abuse Patient Records regulations: The Federal rules restrict any use of the information to criminally investigate or prosecute any alcohol or drug abuse patient.[facility] HospitalIn the event this information is protected by the Federal Confidentiality of Alcohol and Drug Abuse Patient Records regulations: The Federal rules restrict any use of the information to criminally investigate or prosecute any alcohol or drug abuse patient.[facility] HospitalIn the event this information is protected by the Federal Confidentiality of Alcohol and Drug Abuse Patient Records regulations: The Federal rules restrict any use of the information to criminally investigate or prosecute any alcohol or drug abuse patient.[facility] HospitalIn the event this information is protected by the Federal Confidentiality of Alcohol and Drug Abuse Patient Records regulations: The Federal rules restrict any use of the information to criminally investigate or prosecute any alcohol or drug abuse patient.[facility] HospitalIn the event this information is protected by the Federal Confidentiality of Alcohol and Drug Abuse Patient Records regulations: The Federal rules restrict any use of the information to criminally investigate or prosecute any alcohol or drug abuse patient.[facility] HospitalIn the event this information is protected by the Federal Confidentiality of Alcohol and Drug Abuse Patient Records regulations: The Federal rules restrict any use of the information to criminally investigate or prosecute any alcohol or drug abuse patient.[facility] HospitalIn the event this information is protected by the Federal Confidentiality of Alcohol and Drug Abuse Patient Records regulations: The Federal rules restrict any use of the information to criminally investigate or prosecute any alcohol or drug abuse patient.[facility] HospitalIn the event this information is protected by the Federal Confidentiality of Alcohol and Drug Abuse Patient Records regulations: The Federal rules restrict any use of the information to criminally investigate or prosecute any alcohol or drug abuse patient.[facility] HospitalIn the event this information is protected by the Federal Confidentiality of Alcohol and Drug Abuse Patient Records regulations: The Federal rules restrict any use of the information to criminally investigate or prosecute any alcohol or drug abuse patient.[facility] HospitalIn the event this information is protected by the Federal Confidentiality of Alcohol and Drug Abuse Patient Records regulations: The Federal rules restrict any use of the information to criminally investigate or prosecute any alcohol or drug abuse patient.[facility] HospitalIn the event this information is protected by the Federal Confidentiality of Alcohol and Drug Abuse Patient Records regulations: The Federal rules restrict any use of the information to criminally investigate or prosecute any alcohol or drug abuse patient.[facility] HospitalIn the event this information is protected by the Federal Confidentiality of Alcohol and Drug Abuse Patient Records regulations: The Federal rules restrict any use of the information to criminally investigate or prosecute any alcohol or drug abuse patient.[facility] HospitalIn the event this information is protected by the Federal Confidentiality of Alcohol and Drug Abuse Patient Records regulations: The Federal rules restrict any use of the information to criminally investigate or prosecute any alcohol or drug abuse patient.[facility] HospitalIn the event this information is protected by the Federal Confidentiality of Alcohol and Drug Abuse Patient Records regulations: The Federal rules restrict any use of the information to criminally investigate or prosecute any alcohol or drug abuse patient.[facility] HospitalIn the event this information is protected by the Federal Confidentiality of Alcohol and Drug Abuse Patient Records regulations: The Federal rules restrict any use of the information to criminally investigate or prosecute any alcohol or drug abuse patient.[facility] HospitalIn the event this information is protected by the Federal Confidentiality of Alcohol and Drug Abuse Patient Records regulations: The Federal rules restrict any use of the information to criminally investigate or prosecute any alcohol or drug abuse patient.[facility] HospitalIn the event this information is protected by the Federal Confidentiality of Alcohol and Drug Abuse Patient Records regulations: The Federal rules restrict any use of the information to criminally investigate or prosecute any alcohol or drug abuse patient.[facility] HospitalIn the event this information is protected by the Federal Confidentiality of Alcohol and Drug Abuse Patient Records regulations: The Federal rules restrict any use of the information to criminally investigate or prosecute any alcohol or drug abuse patient.[facility] HospitalIn the event this information is protected by the Federal Confidentiality of Alcohol and Drug Abuse Patient Records regulations: The Federal rules restrict any use of the information to criminally investigate or prosecute any alcohol or drug abuse patient.[facility] HospitalIn the event this information is protected by the Federal Confidentiality of Alcohol and Drug Abuse Patient Records regulations: The Federal rules restrict any use of the information to criminally investigate or prosecute any alcohol or drug abuse patient.[facility] HospitalIn the event this information is protected by the Federal Confidentiality of Alcohol and Drug Abuse Patient Records regulations: The Federal rules restrict any use of the information to criminally investigate or prosecute any alcohol or drug abuse patient.[facility] HospitalIn the event this information is protected by the Federal Confidentiality of Alcohol and Drug Abuse Patient Records regulations: The Federal rules restrict any use of the information to criminally investigate or prosecute any alcohol or drug abuse patient.[facility] HospitalIn the event this information is protected by the Federal Confidentiality of Alcohol and Drug Abuse Patient Records regulations: The Federal rules restrict any use of the information to criminally investigate or prosecute any alcohol or drug abuse patient.[facility] HospitalIn the event this information is protected by the Federal Confidentiality of Alcohol and Drug Abuse Patient Records regulations: The Federal rules restrict any use of the information to criminally investigate or prosecute any alcohol or drug abuse patient.[facility] HospitalIn the event this information is protected by the Federal Confidentiality of Alcohol and Drug Abuse Patient Records regulations: The Federal rules restrict any use of the information to criminally investigate or prosecute any alcohol or drug abuse patient.[facility] HospitalIn the event this information is protected by the Federal Confidentiality of Alcohol and Drug Abuse Patient Records regulations: The Federal rules restrict any use of the information to criminally investigate or prosecute any alcohol or drug abuse patient.[facility] HospitalIn the event this information is protected by the Federal Confidentiality of Alcohol and Drug Abuse Patient Records regulations: The Federal rules restrict any use of the information to criminally investigate or prosecute any alcohol or drug abuse patient.[facility] HospitalIn the event this information is protected by the Federal Confidentiality of Alcohol and Drug Abuse Patient Records regulations: The Federal rules restrict any use of the information to criminally investigate or prosecute any alcohol or drug abuse patient.[facility] HospitalIn the event this information is protected by the Federal Confidentiality of Alcohol and Drug Abuse Patient Records regulations: The Federal rules restrict any use of the information to criminally investigate or prosecute any alcohol or drug abuse patient.[facility] HospitalIn the event this information is protected by the Federal Confidentiality of Alcohol and Drug Abuse Patient Records regulations: The Federal rules restrict any use of the information to criminally investigate or prosecute any alcohol or drug abuse patient.[facility] HospitalIn the event this information is protected by the Federal Confidentiality of Alcohol and Drug Abuse Patient Records regulations: The Federal rules restrict any use of the information to criminally investigate or prosecute any alcohol or drug abuse patient.[facility] HospitalIn the event this information is protected by the Federal Confidentiality of Alcohol and Drug Abuse Patient Records regulations: The Federal rules restrict any use of the information to criminally investigate or prosecute any alcohol or drug abuse patient.[facility] HospitalIn the event this information is protected by the Federal Confidentiality of Alcohol and Drug Abuse Patient Records regulations: The Federal rules restrict any use of the information to criminally investigate or prosecute any alcohol or drug abuse patient.[facility] HospitalIn the event this information is protected by the Federal Confidentiality of Alcohol and Drug Abuse Patient Records regulations: The Federal rules restrict any use of the information to criminally investigate or prosecute any alcohol or drug abuse patient.[facility] HospitalIn the event this information is protected by the Federal Confidentiality of Alcohol and Drug Abuse Patient Records regulations: The Federal rules restrict any use of the information to criminally investigate or prosecute any alcohol or drug abuse patient.[facility] HospitalIn the event this information is protected by the Federal Confidentiality of Alcohol and Drug Abuse Patient Records regulations: The Federal rules restrict any use of the information to criminally investigate or prosecute any alcohol or drug abuse patient.[facility] HospitalIn the event this information is protected by the Federal Confidentiality of Alcohol and Drug Abuse Patient Records regulations: The Federal rules restrict any use of the information to criminally investigate or prosecute any alcohol or drug abuse patient.[facility] HospitalIn the event this information is protected by the Federal Confidentiality of Alcohol and Drug Abuse Patient Records regulations: The Federal rules restrict any use of the information to criminally investigate or prosecute any alcohol or drug abuse patient.[facility] HospitalIn the event this information is protected by the Federal Confidentiality of Alcohol and Drug Abuse Patient Records regulations: The Federal rules restrict any use of the information to criminally investigate or prosecute any alcohol or drug abuse patient.[facility] Reason for Visit (unrecogniz ed section and content) Reason Comments Lab Orders Reason Comments Bladder Cancer 2 week follow up Reason Comments Care Coordination Appointment Reason Comments Consult Reason Comments Cystoscopy-1 Specialty Diagnoses / Procedures Referred By Josselin calles Referred To Contact Urology Diagnoses Malignant neoplasm of overlapping sites of bladder (HCC) Procedures CONSULT TO UROLOGY OFFICE/OUTPATIENT [facility] MDM 60-74 MINUTES Ismael Stubsb MD [address] [place] [address] [place] [address] Referral ID Status Reason Start Date Expiration Date V isits Requested Visits Authorized [id number] Closed PCP Requested Referral 09/17/2022 09/17/2023 1 1 Reason Comments Care Coordination Urology Update Reason Comments Results Reason Comments Appointment Reason Comments Patient Update Reason Comments Care Coordination Treatment Planning Reason Comments Care Coordination Urinary Questions Reason Comments Bladder Cancer Reason Comments Patient Question Reason Comments Care Coordination C1D1 Post Treatment Call Reason Comments Established Patient Reason Onset Date Comments Med Refill 04/12/2023 Reason Comments Cyst Cysts on back, self referred Reason Comments Dizziness Makes him nauseated Reason Onset Date Comments Med Refill 05/07/2023 Reason Comments Med Refill Reason Comments Follow-up 5 week follow up fro m 04/16/23, abscess left side of back Reason Onset Date Comments Refill Request 05/21/2023 Reason Onset Date Comments Med Refill 06/26/2023 Reason Onset Date Comments Refill Request 09/12/2023 Reason Onset Date Comments Med Refill 01/28/2024 Reason Comments Cystoscopy-1 Reason Comments Sleep Apnea DME: Andres Reason Onset Date Comments Sleep Lab 03/16/2024 PSG Reason Onset Date Comments Med Refill 03/14/2024 Reason Onset Date Comments Med Refill 03/29/2023 Inactive Administered Medications - up to 3 most recent administrations Administered Medications (un recognized section and content) Medication Order MAR Action Action Date Dose Rate Site bcg 50 mg in NaCl 0.9% 50 mL 50 mg, INTRAVESICAL, ONCE, 1 dose, On Sat05/14/23 at 1330, Instill into bladder via catheter and retain for 120 minutes, followed by bladder drainage Hazardous Chemotherapy Drug: Use appropriate PPE. Protect from Light., AMB MED ORDERS Given 05/14/2023 1:55 PM EST 50 mg lidocaine urojet 2 % 11 mL topical gel (GLYDO) 11 mL, OTHER, ONCE, 1 dose, On Sat05/14/23 at 1330, FOR EXTERNAL USE ONLY Intravesical administration, AMB MED ORDERS Given 05/14/2023 1:49 PM EST 11 mL Inactive Administered Medications - up to 3 most recent administrations Medication Order MAR Action Action Date Dose Rate Site bcg 50 mg in NaCl 0.9% 50 mL 50 mg, INTRAVESICAL, ONCE, 1 dose, On Sat05/21/23 at 0900, Instill into bladder via catheter and retain for 120 minutes, followed by bladder drainage Hazardous Chemotherapy Drug: Use appropriate PPE. Protect from Light., AMB MED ORDERS Given 05/21/2023 9:11 AM EST 50 mg lidocaine urojet 2 % 11 mL topical gel (GLYDO) 11 mL, OTHER, ONCE, 1 dose, On Sat05/21/23 at 0900, FOR EXTERNAL USE ONLY Intravesical administration, AMB MED ORDERS Given 05/21/2023 8:50 AM EST 11 mL Inactive Administered Medications - up to 3 most recent administrations Medication Order MAR Action Action Date Dose Rate Site bcg 50 mg in NaCl 0.9% 50 mL 50 mg, INTRAVESICAL, ONCE, 1 dose, On Sat05/28/23 at 1330, Instill into bladder via catheter and retain for 120 minutes, followed by bladder drainage Hazardous Chemotherapy Drug: Use appropriate PPE. Protect from Light., AMB MED ORDERS Given 05/28/2023 1:35 PM EST 50 mg lidocaine urojet 2 % 11 mL topical gel (GLYDO) 11 mL, OTHER, ONCE, 1 dose, On Sat05/28/23 at 1330, FOR EXTERNAL USE ONLY Intravesical administration, AMB MED ORDERS Given 05/28/2023 1:30 PM EST 11 mL FOR RECORDS PERTAINING TO PATIENTS WHO ARE OR HAVE BEEN ENROLLED IN A CHEMICAL DEPENDENCY/SUBSTANCEABUSE PROGRAM, SOME INFORMATION MAY BE OMITTED. This clinical summary was aggregated from multiple sources. Caution should be exercised in using it in the provision of clinical care. This summary normalizes information from multiple sources, and as a consequence, information in this document may materially change the coding, format and clinical context of patient data. In addition, data may be omitted in some cases. CLINICAL DECISIONS SHOULD BE BASED ON THE PRIMARY CLINICAL RECORDS. [facility] [employer] [facility]. provides no warranty or guarantee of the accuracy or completeness of information in this document.
[2024-04-29 09:01] VITALS: BP 109/83; PULSE 84; TEMP 36.3; O2SAT 98; BMI 25.2
[2024-04-29] MEDS: 0.9 % SODIUM CHLORIDE 500 ML 50 ML IV ×2 (09:17→10:34)
[2024-04-29 11:06] VITALS: BP 101/71; PULSE 82; TEMP 36.3; O2SAT 97
[2024-04-29 11:21] VITALS: BP 106/69; PULSE 78; O2SAT 98
[2024-04-29 11:36] VITALS: BP 115/71; PULSE 70; O2SAT 98
== END 2024-04-29 11:44 | disposition home or self-care (01) ==
PROVIDERS: PCP Internal Medicine; Visit Provider Surgery
PROC: (CPT 45378; principal; 2024-04-29 09:45)
DX: K57.30 Diverticulosis of large intestine without perforation or abscess without bleeding (principal); Z86.0100 Personal history of colon polyps, unspecified; I10 Essential (primary) hypertension; E78.5 Hyperlipidemia, unspecified; G47.33 Obstructive sleep apnea (adult) (pediatric); Z85.038 Personal history of other malignant neoplasm of large intestine; Z85.51 Personal history of malignant neoplasm of bladder; Z90.49 Acquired absence of other specified parts of digestive tract; Z98.52 Vasectomy status; Z90.79 Acquired absence of other genital organ(s); F17.200 Nicotine dependence, unspecified, uncomplicated; K21.9 Gastro-esophageal reflux disease without esophagitis
CPT/HCPCS: 45378; J1100; J2371; J2704